=== PATIENT | female | born 1970 | race Caucasian/White ===

== ENCOUNTER 2019-06-10 11:39 | Outpatient (RCR) | payer OTHER, SELFPAY | END 2019-09-08 23:59 | disposition home or self-care (01) | LOC: ANHLAB 11:39 | PROVIDERS: Internal Medicine Gastroenterology; PCP Internal Medicine; Visit Provider Family Medicine | DX: R19.7 Diarrhea, unspecified (principal); R10.84 Generalized abdominal pain | CPT/HCPCS: 36415; 82274; 83993; 87045; 87046; 87177; 87209; 87324; 87427; 89055 ==

== ENCOUNTER 2019-08-23 10:00 | Outpatient (RCR) | payer OTHER, SELFPAY ==
--- NOTE | 2019-06-06 09:03 | PTOPEVAL ---
PHYSICAL THERAPY EVALUATION AND PLAN OF CARE Thank you for referring this patient to [facility]. Kerry is scheduled to be seen in OP PT for 2x/week for 4-6 weeks. Please review, sign, date and return this plan of care ALEJANDRA. I agree with and certify that the following plan of care is medically necessary. Referring Physician Date Therapy Assessment Status Assessment Status Assessment Status Evaluation Outpatient Past Medical History Musculoskeletal History Hx Spinal Surgery Yes: C5,6,7 fusion Evaluation Information Problem Diagnosis cervical fusion C5,6,7 Onset 04/13/19 Subjective Information 2months s/p cervical fusion. Query Text:As Reported By Patient/ Prior to surgery she Family experienced constant pain in the neck, pain with lifting, numbness and tingling in fingers and arms, and pain that would go up and down the back. Today she experiences occasional pain in the neck, especially after waking from sleep - states she is a restless sleeper. States that her arms will fall asleep if she lies on her side, but not if she lies on her back . Assessment Pain Scale Used Numeric (1 - 10) Self Report Pain Assessment Spine, Cervical Reported Pain Level 2 Pain Description Aching Pain Frequency Acute,Intermittent Current Pain Intensity 2 Lowest Pain Intensity 0 Greatest Pain Intensity 7 Pain Aggravating Factors Bending,Lifting Other Pain Aggravating Factors sleep Cervical ROM Reason Not Measured Surgery Precautions Upper Extremity Range of Motion Reason Not Measured WFL/Left,WFL/Right Gross Upper Extremity Range of Motion flexion and internal rotation: Comments right greater than left Upper Extremity Muscle Strength Testing Gross Upper Extremity Strength Comments 10lb lifting restriction grossly 3+/5 throughout Muscle Length Testing Latissmus Dorsi Muscle Length (R) WFL,(L) Mild Tightness Upper Trapezius Muscle Length (R) Moderate Tightness,(L) Severe Tightness Levaetor Scapulae Muscle Length (R) Moderate Tightness,(L) Moderate Tightness Pectoralis Major Muscle Length (R) Moderate Tightness,(L) Moderate Tightness Pectoralis Minor Muscle Length (R) Moderate Tightness,(L) Severe Tightness Sitting Position Posture Evaluation
--- NOTE | 2019-06-13 12:44 | PCPTNOTE ---
Patient called & cancelled scheduled appointment this date no reason given
--- NOTE | 2019-06-29 07:57 | PCPTNOTE ---
Patient called & cancelled scheduled appointment this date due to stomach flu
--- NOTE | 2019-07-04 08:26 | PCPTNOTE ---
Patient did not show up for scheduled appointment this date.
--- NOTE | 2019-07-12 11:34 | PTOPEVAL ---
PHYSICAL THERAPY PLAN OF CARE UPDATE AND PROGRESS REPORT Thank you for referring this patient to [facility]. Kerry will continue PT 2x/week for 3weeks. Please review, sign, date and return this plan of care ALEJANDRA. I agree with and certify that the following plan of care is medically necessary. Referring Physician Date Therapy Assessment Status Assessment Status Assessment Status Evaluation Outpatient Past Medical History Musculoskeletal History Hx Spinal Surgery Yes: C5,6,7 fusion Diagnosis cervical fusion C5,6,7 Onset 04/13/19 Subjective Information 3months s/p cervical fusion. Query Text:As Reported By Patient/ She is experiencing less Family numbness and tingling and if she uses a pillow to sleep there is even less numbness and tingling in her hands/arms. Self Report Pain Assessment Spine, Cervical Reported Pain Level 2 Pain Description Aching,Soreness,Tingling Pain Frequency Acute,Intermittent Scapular/ Shoulder Range of Motion Bilateral Shoulder Flexion - Active 130 Shoulder Medial Rotation - Active L1 Query Text:Reach Behind the Back Shoulder Lateral Rotation - Active occiput Query Text:Reach Behind the Head Scapular/Shoulder Range of Motion Muscle Length Restriction,Soft Limitations Tissue Restriction Scapular/Shoulder Strength Left Shoulder Flexion Strength 4- Good - Shoulder Extension Strength 4 Good Shoulder Abduction Strength 4- Good - Shoulder Medial Rotation Strength 4 Good Shoulder Lateral Rotation Strength 4 Good Right Shoulder Flexion Strength 3+ Fair + Shoulder Extension Strength 4 Good Shoulder Abduction Strength 3+ Fair + Shoulder Medial Rotation Strength 3 Fair Shoulder Lateral Rotation Strength 3- Fair - Muscle Length Testing - NO SIGNIFICANT CHANGES IN MUSCLE LENGTH Latissmus Dorsi Muscle Length (R) WFL,(L) Mild Tightness Upper Trapezius Muscle Length (R) Moderate Tightness,(L) Severe Tightness Levaetor Scapulae Muscle Length (R) Moderate Tightness,(L) Moderate Tightness Pectoralis Major Muscle Length (R) Moderate Tightness,(L) Moderate Tightness Pectoralis Minor Muscle Length (R) Moderate Tightness,(L) Severe Tightness Posture --NO SIGNIFICANT CHANGES IN POSTURE Thoracic Spine Posture Increased Kyphosis Thorax Posture Neutral Lumbar Spine Posture Flattened Shoulder Posture (L) Rounded,(R) Rounded,(L) Forward,(R) Forward Scapula Posture (L) Protracted,(R) Protracted, (L) Depressed Shoulder Special Te
--- NOTE | 2019-07-26 08:48 | PCPTNOTE ---
Patient called & cancelled scheduled appointment this date no reason given.
--- NOTE | 2019-08-02 09:08 | PCPTNOTE ---
Patient called & cancelled scheduled appointment this date due to having the flu.
--- NOTE | 2019-08-23 10:52 | PTOPEVAL ---
PHYSICAL THERAPY DISCHARGE REPORT Thank you for referring this patient to [facility]. I recommend Kerry discharge from PT at this time with independent HEP. Please review, sign, date and return this plan of care ALEJANDRA. I agree with and certify that the following plan of care is medically necessary. Referring Physician Date Re-evaluation Musculoskeletal History Hx Spinal Surgery Yes: C5,6,7 fusion Diagnosis cervical fusion C5,6,7 Onset 04/13/19 Subjective Information 4.5 months s/p cervical fusion Query Text:As Reported By Patient/ . Numbness and tingling are Family about the same. She did just return from vacation and did not do her exercises consistently, but now that she is back she is more consistent. Pain Assessment Timing of Pain Assessment Timing of Pain Assessment Pre-Treatment Self Report Self Report Pain Level 0 Pain Score Pain Score 0: Self Report Additional Pain Score Comments felt like dry needling helped decrease tension until this morning; except would prefer to not needle behind the head Cervical and Lumbar ROM Cervical ROM Reason Not Measured Surgery Precautions Cervical ROM Comments reports she is testing rotation without pain Upper Extremity Range of Motion General Upper Extremity Range of Motion Reason Not Measured WFL/Left,WFL/Right Gross Upper Extremity Range of Motion symmetrical with continued Comments mild decrease in ROM; reports this does not limit her function Scapular/ Shoulder Range of Motion Bilateral Shoulder Flexion - Active 145 Shoulder Medial Rotation - Active L1 Query Text:Reach Behind the Back Shoulder Lateral Rotation - Active T2 Query Text:Reach Behind the Head Scapular/Shoulder Range of Motion Muscle Length Restriction,Soft Limitations Tissue Restriction General Upper Extremity Strength Gross Upper Extremity Strength Comments 25lb lifting restriction Scapular/Shoulder Left Shoulder Flexion Strength 4 Good Shoulder Extension Strength 4 Good Shoulder Abduction Strength 4 Good Shoulder Medial Rotation Strength 4+ Good + Shoulder Lateral Rotation Strength 4+ Good + Right Shoulder Flexion Strength 4+ Good + Shoulder Extension Strength 4+ Good + Shoulder Abduction Strength 4 Good Shoulder Medial Rotation Strength 4+ Good + Shoulder Lateral Rotation Strength 4+ Good + Muscle Length Testing Latissmus Dorsi Muscle Length (R) WFL,(L) WFL Upper Trapezius Muscle
== END 2019-08-23 14:17 | disposition home or self-care (01) ==
LOC: ANHPT 10:00
DX: Z98.1 Arthrodesis status (principal)
CPT/HCPCS: 97110; 97140; 97161

== ENCOUNTER 2020-02-01 18:52 | Emergency (ER) | payer OTHER, SELFPAY ==
[2020-02-01 18:54] VITALS: BP 151/74; PULSE 65; RESP 18; TEMP 36.3; O2SAT 100
--- NOTE | 2020-02-01 20:00 | ED.GENADULT ---
HPI - General Adult General Chief complaint: Unspecified Stated complaint: knot under my chin Time Seen by Provider: 02/01/20 19:04 History of Present Illness HPI narrative: Patient is a 49-year-old female who presents the ER with redness and pain to the anterior aspect of her neck. Patient reports she is outside few days both cleaning when she was potentially bitten by gnat. For last couple days it is become more red and tender. Reports referred pain to the right side of her jaw. No difficulty breathing or swallowing. No drainage. There is a small chao to the central area. Was seen by her PCP who referred her to the ER. Related Data Home Medications Medication Instructions Recorded Confirmed albuterol sulfate 90 mcg/actuation 1 inhalation INHALATION Q4H 11/21/19 aerosol inhaler gabapentin 300 mg capsule 600 mg PO HS cap 11/21/19 amitriptyline 50 mg PO HS 02/01/20 atorvastatin 20 mg PO DAILY 02/01/20 Allergies Allergy/AdvReac Type Severity Reaction Status Date / Time No Known Allergies Allergy Verified 02/01/20 19:12 Review of Systems Constitutional: Constitutional: Denies chills and Denies fever(s) ENT: Denies dysphagia and Denies sore throat Respiratory: Respiratory: Denies cough and Denies dyspnea Integumentary/Breasts: Skin/Breast: Reports erythema Comments: Skin pain anterior neck. PMFSH Social History Social History Smoking status: Never smoker Alcohol intake: never Gender identity (if verbalized by the patient): Female Exam Narrative: Exam Narrative: GENERAL: Well-appearing, well-nourished, and in no acute distress. HEAD: Normocephalic, atraumatic. NECK: Supple. Redness anterior neck at essentially the crease of the jaw and anterior neck. There is a small white pustule. About 1 cm surrounding cellulitis and induration. Full range of motion. CHEST: Clear to auscultation. No respiratory distress. HEART: Regular rate and rhythm. Normal peripheral pulses. NEURO: Alert and oriented x3. Course Course Emergency Course: Bedside ultrasound shows no discernible pocket of pus. The white pustule that was initially there disappeared after application of room alcohol wipe and ultrasound jelly. Patient be discharged with antibiotics and pain medication. Vital Signs Vital signs: Vital Signs Temperature 97.3 F L 02/01/20 18:54 Pulse Rate 65 02/01/20 18:54 Respiratory Rate 18 02/01/20 18:54 Blood Pressure 151/74 H 02/01/20 18:54 Pulse Oximetry 100 02/01/20 18:54 Temperature 97.3 F L 02/01/20 18:54 Pulse Rate 65 02/01/20 18:54 Respiratory Rate 18 02/01/20 18:54 Blood Pressure 151/74 H 02/01/20 18:54 Pulse Oximetry 100 02/01/20 18:54 Medical Decision Making Vital Signs Vital Signs: Vital Signs Temperature 97.3 F L 02/01/20 18:54 Pulse Rate 65 02/01/20 18:54 Respiratory Rate 18 02/01/20 18:54 Blood Pressure 151/74 H 02/01/20 18:54 Pulse Oximetry 100 02/01/20 18:54 Temperature 97.3 F L 02/01/20 18:54 Pulse Rate 65 02/01/20 18:54 Respiratory Rate 18 02/01/20 18:54 Blood Pressure 151/74 H 02/01/20 18:54 Pulse Oximetry 100 02/01/20 18:54 Discharge Plan Discharge Clinical Impression: Cellulitis Patient Disposition: Home, Self-Care Condition: Stable Instructions: Antibiotic Form, Cellulitis (ED) Additional Instructions: Return to the ER if he cannot breathe, you cannot swallow, you have worsening redness or pain, or you develop fever over 100.4 ?F. Prescriptions: New sulfamethoxazole-trimethoprim [Bactrim DS] 800-160 mg tablet 1 tablet PO Q12H Qty: 20 RF: 0 hydrocodone-acetaminophen 5-325 mg tablet 1 tablet PO Q6H PRN (Reason: pain) Qty: 12 RF: 0 No Action gabapentin 300 mg capsule 600 mg PO HS RF: 0 albuterol sulfate 90 mcg/actuation HFA aerosol inhaler 1 inhalation INHALATION Q4H RF: 0 atorvastatin 20 mg tablet
[2020-02-01 20:20] VITALS: BP 146/77; PULSE 63; RESP 20; O2SAT 97
== END 2020-02-01 20:20 | disposition home or self-care (01) ==
PROVIDERS: Emergency Provider Emergency Medicine; PCP Internal Medicine
DX: L03.221 Cellulitis of neck (principal)
CPT/HCPCS: 99283; A9270

== ENCOUNTER 2020-05-09 13:28 | Outpatient (CLI) | payer OTHER, SELFPAY ==
--- NOTE | ~2020-05-09 | MR_ITS ---
EXAMINATION: MR lumbar spine wo con DATE: 05/09/2020 14:47 INDICATION: Lumbar radiculopathy. TECHNIQUE: Magnetic resonance imaging (MRI) of the lumbar spine was performed without intravenous con trast. Sequences included sagittal T2-weighted FSE, sagittal T2-weighted FS FSE, sagittal T1-weighted FSE, and axial T2-weighted FSE. COMPARISON: None FINDINGS: Bone alignment is normal. There is mild chronic anterior wedging of T11 and T12 vertebral b odies. There is moderately decreased disc height at T11-T12 and mildly decreased disc height at T12-L 1. The distal spinal cord signal intensity is normal. The conus medullaris is at L2. The following di sc levels are specifically discussed: L1-L2: There is a central protrusion. There is no facet joint osteoarthritis. There is no neural fora alex stenosis. There is no central canal stenosis. L2-L3: The disc does not extend beyond the endplate margin. There is mild bilateral facet joint osteo arthritis. There is no neural foraminal stenosis. There is no central canal stenosis. L3-L4: The disc does not extend beyond the endplate margin. There is moderate bilateral facet joint o steoarthritis. There is no neural foraminal stenosis. There is no central canal stenosis. L4-L5: The disc does not extend beyond the endplate margin. There is severe bilateral facet joint ost eoarthritis. There is mild bilateral neural foraminal stenosis. There is no central canal stenosis. L5-S1: The disc does not extend beyond the endplate margin. There is severe right and mild left facet joint osteoarthritis. There is mild bilateral neural foraminal stenosis. There is no central canal s tenosis. IMPRESSION: 1. Mild lumbar spondylosis. Reviewed, dictated and finalized at location A. P MIXER HELPER IMPRESSION: 1. Mild lumbar spondylosis.
== END 2020-05-09 13:29 | disposition home or self-care (01) ==
PROVIDERS: PCP Internal Medicine; Visit Provider Nurse Practitioner
DX: M47.27 Other spondylosis with radiculopathy, lumbosacral region (principal); M48.07 Spinal stenosis, lumbosacral region
CPT/HCPCS: 72148

== ENCOUNTER 2020-10-18 20:35 | Emergency (ER) | payer OTHER, SELFPAY ==
--- NOTE | ~2020-10-18 | XR_ITS ---
EXAMINATION: XR hand LT min 3V EXAM DATE: 10/18/2020 22:05 INDICATION: Laceration Between 3rd And 4th Digit From Metal Object . TECHNIQUE: Left hand frontal, lateral and oblique projections obtained and reviewed. There is no deven or study for comparison. FINDINGS: Left metacarpal bones are unremarkable. There are no acute fractures or dislocations ident ified. There is no subcutaneous gas. The soft tissue is unremarkable. There are no radiopaque for eign bodies. IMPRESSION: 1. Unremarkable left hand exam. Reviewed, dictated and finalized at location A.
[2020-10-18 20:38] VITALS: BP 167/79; PULSE 99; RESP 18; TEMP 36.2; O2SAT 99
[2020-10-18] MEDS: TETANUS,DIPHTHERIA,AC PERTUSSIS ADULT (0.5 ML) BOOSTRIX IM (21:39)
--- NOTE | 2020-10-18 21:52 | ED.WOUNDLAC ---
HPI - Wound/Laceration General Chief Complaint: Wound/Laceration Stated Complaint: laceration to hand Time Seen by Provider: 10/18/20 21:26 Source: patient Mode of arrival: ambulatory Limitations: no limitations History of Present Illness HPI narrative: This is a 50-year-old female that presents to the emergency department for laceration sustained just prior to arrival. Reports she was taking down a tent and sustained a laceration on a piece of metal. Reports laceration between the left third and fourth fingers. Reports bleeding and pain to the area. Unsure of her last tetanus vaccine. Denies decreased range of motion or numbness. Related Data Home Medications Medication Instructions Recorded Confirmed albuterol sulfate 90 mcg/actuation 1 inhalation INHALATION Q4H 11/21/19 aerosol inhaler gabapentin 300 mg capsule 600 mg PO HS cap 11/21/19 amitriptyline 50 mg PO HS 02/01/20 atorvastatin 20 mg PO DAILY 02/01/20 Allergies Allergy/AdvReac Type Severity Reaction Status Date / Time No Known Allergies Allergy Verified 02/01/20 19:12 Review of Systems Review of Systems: Narrative: CONSTITUTIONAL: Denies fever SKIN: Reports laceration MUSCULOSKELETAL: Denies joint pain, or myalgia. NEUROLOGIC: Denies numbness All systems reviewed & are unremarkable except as noted in HPI and below PMFSH Past Medical History Medical History (Updated 10/18/20 @ 23:14 by Michelle Collins PA-C) Acid reflux History of hyperlipidemia Missed Surgical History Surgical History History of cholecystectomy History of endometrial ablation Previous section x 3 Family History Family History Father Family history of premature coronary heart disease Hypertension Family history of elevated blood lipids Family history of diabetes mellitus in first degree relative Diabetes mellitus Family history of hypercholesterolemia Sibling Family history of malignant neoplasm of thyroid Social History Social History Smoking status: Never smoker Alcohol intake: never Gender identity (if verbalized by the patient): Female Exam Narrative: Exam Narrative: GENERAL: Well-appearing, well-nourished, and in no acute distress. HEAD: Normocephalic, atraumatic. EYES: EOMI. EXTREMITIES: Normal range of motion. No edema or obvious deformity. 2 cm linear laceration into subcutaneous tissue between the left third and fourth fingers SKIN: Warm, dry, no rash. NEURO: No focal deficits. Alert and oriented x3. PSYCH: Normal mood and affect Course Vital Signs Vital signs: Vital Signs Temperature 97.1 F L 10/18/20 20:38 Pulse Rate 99 10/18/20 20:38 Respiratory Rate 18 10/18/20 20:38 Blood Pressure 167/79 H 10/18/20 20:38 Pulse Oximetry 99 10/18/20 20:38 Temperature 97.1 F L 10/18/20 20:38 Pulse Rate 99 10/18/20 20:38 Respiratory Rate 18 10/18/20 20:38 Blood Pressure 167/79 H 10/18/20 20:38 Pulse Oximetry 99 10/18/20 20:38 Procedures Laceration Laceration 1: Date: 10/18/20 Time: 23:14 Site: hand Side (If applicable): left Size (cm): 2 Description: linear Depth: simple, single layer Local Anesthetic: lidocaine 1% and with epi Amount of anesthesia used (mL): 2 Pre-repair: irrigated ====== Skin Level ====== Skin layer closed with: nylon Size (cm): 4-0 Number of sutures: 3 Technique: simple, interrupted ====== Subcutaneous Layer ====== ====== Muscle Layer ====== ====== Tendon Layer ====== MDM - Wound/Laceration MDM Narrative Medical decision making narrative: Patient presents the emergency department for left hand laceration sustained just prior to arrival. Left hand x-rays without acute osseous abnormali
[2020-10-18] MEDS: HYDROcodone/acetaminophen (*CRX) 5-325 MG TABLET 1 TAB PO (22:42)
== END 2020-10-18 23:33 | disposition home or self-care (01) ==
PROVIDERS: Emergency Provider Emergency Medicine; PCP Internal Medicine
DX: S61.412A Laceration without foreign body of left hand, initial encounter (principal); E78.5 Hyperlipidemia, unspecified; K21.9 Gastro-esophageal reflux disease without esophagitis; Z23 Encounter for immunization; W26.8XXA Contact with other sharp object(s), not elsewhere classified, initial encounter
CPT/HCPCS: 12001; 73130; 90471; 90715; 99284; A9270

== ENCOUNTER 2021-02-27 09:21 | Outpatient (CLI) | payer OTHER, SELFPAY ==
[2021-02-27 10:01] LABS: CRP < 0.5 mg/dL (<1.0)
[2021-02-27 10:11] LABS: Troponin I < 0.012 ng/mL (0.000-0.034)
[2021-02-27 10:27] LABS: D Dimer 0.28 ug/mL (<0.48)
[2021-02-27 11:28] LABS: Erythrocyte Sedimentation Rate 14 mm/hr (0-20)
== END 2021-02-27 09:22 | disposition home or self-care (01) ==
PROVIDERS: PCP Internal Medicine; Visit Provider Nurse Practitioner Family
DX: R07.9 Chest pain, unspecified (principal)
CPT/HCPCS: 36415; 84484; 85380; 85652; 86140

== ENCOUNTER 2021-05-27 08:14 | Outpatient (CLI) | payer OTHER, SELFPAY ==
--- NOTE | ~2021-05-27 | MR_ITS ---
EXAMINATION: MR brain/brain stem wo con DATE: 05/27/2021 09:41 INDICATION: New daily persistent headache. TECHNIQUE: Magnetic resonance imaging (MRI) of the brain and brainstem was performed without intraven ous contrast. Sequences included sagittal and axial T1-weighted FSE, axial diffusion-weighted FS EPI, axial T2*-weighted GRE, axial T2-weighted FLAIR Propeller, and axial T2-weighted Propeller. Apparent diffusion coefficient (ADC) maps were created. COMPARISON: None. FINDINGS: There is no intracranial hemorrhage, acute infarction, or abnormal intracranial mass lesion . The ventricles are normal in size. There are changes of suboccipital craniotomy. There is a mucous retention cyst in left maxillary sinus. The mastoid air cells are normal. The orbits are normal. IMPRESSION: 1. Normal brain. Reviewed, dictated and finalized at location A. RESSION CREW LEADER IMPRESSION: 1. Normal brain.
--- NOTE | ~2021-05-27 | MR_ITS ---
EXAMINATION: MR cervical spine wo con DATE: 05/27/2021 09:51 INDICATION: Neck pain. TECHNIQUE: Magnetic resonance imaging (MRI) of the cervical spine was performed without intravenous c ontrast. Sequences included sagittal T2-weighted FSE, sagittal STIR FSE, sagittal T1-weighted FSE, ax ial MERGE, and axial T2-weighted FSE. COMPARISON: None FINDINGS: There is 3 degrees levocurvature of cervicothoracic spine. There are changes of anterior fu nirmala procedure from C5 to C7 with healed interbody bone graft and anterior plate and screws. Vertebra l body heights are normal. There is mildly decreased disc height at C4-C5. The spinal cord signal int ensity is normal. There are changes of suboccipital craniotomy. The following disc levels are specifi jhonatan discussed: C2-C3: The disc does not extend beyond the endplate margin. There is no uncovertebral joint osteoarth ritis. There is mild right and severe left facet joint osteoarthritis. There is mild left neural fora alex stenosis. There is no central canal stenosis. C3-C4: The disc does not extend beyond the endplate margin. There is no uncovertebral joint osteoarth ritis. There is moderate bilateral facet joint osteoarthritis. There is no neural foraminal stenosis. There is no central canal stenosis. C4-C5: There is a central extrusion. There is no uncovertebral joint osteoarthritis. There is severe bilateral facet joint osteoarthritis. There is mild left neural foraminal stenosis. There is mild dane tral canal stenosis. C5-C6: There is no uncovertebral joint hypertrophy. There is no facet joint osteoarthritis. There is no neural foraminal stenosis. There is no central canal stenosis. C6-C7: There is no uncovertebral joint hypertrophy. There is moderate right and mild left facet joint osteoarthritis. There is mild right neural foraminal stenosis. There is no central canal stenosis. C7-T1: There is a central protrusion. There is no uncovertebral joint osteoarthritis. There is severe bilateral facet joint osteoarthritis. There is mild bilateral neural foraminal stenosis. There is mi ld central canal stenosis. IMPRESSION: 1. Mild cervical spondylosis. 2. Anterior fusion procedure from C5 to C7. Reviewed, dictated and finalized at location A. P TRUCK DRIVER
== END 2021-05-27 08:15 ==
PROVIDERS: PCP Internal Medicine; Visit Provider Nurse Practitioner Family
DX: G44.52 New daily persistent headache (NDPH) (principal); M47.813 Spondylosis without myelopathy or radiculopathy, cervicothoracic region; M48.03 Spinal stenosis, cervicothoracic region; Z98.1 Arthrodesis status
CPT/HCPCS: 70551; 72141

== ENCOUNTER 2021-07-02 10:22 | Outpatient (CLI) | payer OTHER, SELFPAY ==
--- NOTE | ~2021-07-02 | US_ITS ---
EXAMINATION: US abdomen complete EXAM DATE: 07/02/2021 10:46 INDICATION: Thrombocytosis . TECHNIQUE: Multiple grayscale and Doppler images of the complete abdomen were obtained (by a technolo gist who performed the scan) and subsequently reviewed. There is no prior study for comparison. FINDINGS: The abdominal aorta is normal in caliber. Visualized portion IVC is patent. The pancreatic head a nd body are normal in appearance. The pancreatic tail is not visualized. The liver has normal echogenicity and contour. There are no focal liver lesions identified. There is no evidence of intrahepatic biliary duct dilation. Portal venous flow was seen in the hepatopedal , normal direction and has normal Doppler waveform. Common bile duct measures 4 mm, which is normal. The gallbladder fossa is unremarkable. Right kidney: There is normal contour and increased medullary echogenicity. It measures 9.7 x 4.3 x 4.7 centimeters. There are no focal renal lesions identified. There is no hydronephrosis. Left kidney: There is normal contour and increased medullary echogenicity. It measures 10.0 x 5.2 x 4.1 centimeters. There are no focal renal lesions identified. There is no hydronephrosis. The spleen measures 10 centimeters and is morphologically normal. IMPRESSION: 1. Diffusely increased renal medullas, suspicious for medullary nephrocalcinosis. 2. No hydronephrosis. 3. Normal spleen size. Reviewed, dictated and finalized at location A. URCE ENGINEER IMPRESSION: 1. Diffusely increased renal medullas, suspicious for medullary nephrocalcinos is. 2. No hydronephrosis. 3. Normal spleen size.
== END 2021-07-02 10:23 ==
LOC: MICIMG 10:23
PROVIDERS: PCP Internal Medicine; Visit Provider Nurse Practitioner
DX: D75.839 Thrombocytosis, unspecified (principal)
CPT/HCPCS: 76700

== ENCOUNTER 2021-10-03 09:52 | Outpatient (CLI) | payer OTHER, SELFPAY ==
--- NOTE | ~2021-10-03 | CT_ITS ---
EXAMINATION: CT abdomen pelvis wo con DATE: 10/03/2021 10:15 INDICATION: Abdominal pain. History of kidney stones years ago. TECHNIQUE: Computed tomography (CT) of the abdomen and pelvis was performed without intravenous contr ast. Automated exposure control and iterative reconstruction technique were employed. Exam dose: 757 .24 mGy-cm total exam DLP. COMPARISON: 07/02/2021 complete abdominal ultrasound examination FINDINGS: The lung bases are clear. Normal heart size. No pericardial or pleural effusion. Status post cholecystectomy. No hepatic, splenic, pancreatic, and adrenal or renal space-occupying ma ss lesion. No urinary tract calculus or hydroureteronephrosis. The urinary bladder is unremarkable. Normal appendix; no evidence of appendicitis. Minimal colonic diverticulosis; no CT evidence of diver ticulitis. No bowel obstruction, bowel wall thickening, pneumatosis or intraperitoneal free air. No suspicious osteolytic or osteoblastic lesions. Diffuse idiopathic skeletal hyperostosis of the tho racic spine. IMPRESSION: Status post cholecystectomy No urinary tract calculi or hydroureteronephrosis Normal appendix Reviewed, dictated and finalized at Location A. Reviewed, dictated and finalized at location A.
== END 2021-10-03 09:53 ==
PROVIDERS: PCP Internal Medicine; Visit Provider Nurse Practitioner
DX: R10.9 Unspecified abdominal pain (principal); Z90.49 Acquired absence of other specified parts of digestive tract; M48.14 Ankylosing hyperostosis [Forestier], thoracic region; K57.30 Diverticulosis of large intestine without perforation or abscess without bleeding
CPT/HCPCS: 74176

== ENCOUNTER 2022-01-30 12:02 | Outpatient (CLI) | payer OTHER, SELFPAY ==
--- NOTE | ~2022-01-30 | MR_ITS ---
EXAMINATION: MR brain/brain stem wo/w con DATE: 01/30/2022 12:54 INDICATION: Disorientation, unspecified. TECHNIQUE: Magnetic resonance imaging (MRI) of the brain and brainstem was performed without and with 15 mL MultiHance intravenous contrast. COMPARISON: Brain MRI 05/27/2021 FINDINGS: There are changes of suboccipital craniotomy. There is a punctate focus of increased T2-benjamín ghted signal intensity in the left frontoparietal deep white matter which is normal as an isolated fi nding. There is no intracranial hemorrhage, acute infarction, or abnormal intracranial mass lesion. T he ventricles are normal in size. There is a mucous retention cyst in left maxillary sinus. The orbit s are normal. The mastoid air cells are normal. IMPRESSION: 1. Normal brain. Reviewed, dictated and finalized at location A. IMPRESSION: 1. Normal brain.
== END 2022-01-30 12:03 ==
PROVIDERS: PCP Internal Medicine; Visit Provider Internal Medicine
DX: R41.0 Disorientation, unspecified (principal)
CPT/HCPCS: 70553; A9577

== ENCOUNTER 2022-03-11 10:53 | Outpatient (CLI) | payer OTHER, SELFPAY ==
--- NOTE | ~2022-03-11 | MMUS_ITS ---
EXAMINATION: MM diagnostic nicolas BI w shabbir, US breast LT limited HISTORY: Skin sore of the upper outer quadrant of the left breast and adjacent palpable lump in the u pper outer quadrant of the left breast. TECHNIQUE: Craniocaudal, mediolateral, and mediolateral oblique 3-D tomosynthesis images of the breas ts were performed and synthetic 2-D images were generated. CAD analysis was submitted and interpreted . High resolution limited left breast ultrasound was performed. COMPARISON: No prior mammogram is currently available for comparison. BREAST PARENCHYMAL COMPOSITION: There are scattered areas of fibroglandular density. FINDINGS: MAMMOGRAPHIC FINDINGS: No suspicious mass, calcification, or architectural distortion are identified in either breast to sug gest malignancy. No mammographic correlate is identified for the reported palpable abnormality or sor e of the skin surface at the upper outer quadrant of the left breast. ULTRASOUND: There is no evidence of focal abnormal solid or cystic mass in the vicinity of the reported palpable abnormality or sore the skin surface of the left breast. IMPRESSION: 1. No specific mammographic or sonographic correlate is identified for the reported palpable abnormal ity of concern or sore of the skin surface in the left breast. Further evaluation at this time should be based on clinical assessment. Continued follow-up physical examination is recommended. 2. Recommend routine screening mammography in one year. BI-RADS Category 1: Negative Reviewed, dictated and finalized at location A. IMPRESSION: 1. No specific mammographic or sonographic correlate is identified for the repo rted palpable abnormality of concern or sore of the skin surface in the left br east. Further evaluation at this time should be based on clinical assessment. C ontinued follow-up physical examination is recommended. 2. Recommend routine screening mammography in one year. BI-RADS Category 1: Negative
== END 2022-03-11 10:54 ==
PROVIDERS: PCP Internal Medicine; Visit Provider Nurse Practitioner
DX: N64.89 Other specified disorders of breast (principal)
CPT/HCPCS: 76642; 77062; 77066; G0279

== ENCOUNTER 2022-07-16 12:22 | Inpatient (IN) | payer OTHER, SELFPAY ==
[2022-07-16] VITALS (13 sets, daily range): BP systolic 109–153; BP diastolic 52–79; PULSE 63–123; RESP 14–23; TEMP 36.6–37; O2SAT 97–100; BMI 33.3; BMI 32.9
--- NOTE | 2022-07-16 | ECHO_ITS ---
Patient Info Name: Kerry Julian Age: 52 years : 1970 Gender: Female Ht: 63 in Wt: 170 lbs BSA: 1.88 m2 HR: 77 bpm BP: 153 / 57 mmHg Heart Rhythm: Sinus Rhythm Technical Quality: Fair Exam Date: 07/16/2022 4:17 PM Exam Location: [facility] Patient Status: Outpatient Admit Date: 07/16/2022 Staff Ordering Physician: Carroll Rabago DO Patient Resource Specialist: Bhumi Fisher RDCS Attending Provider: Sugar Conner DO Referring Physician: Hima VALLES; Exam Type: CA echo doppler color flow Study Info Indications R07.9 - Chest pain, unspecified Complete two-dimensional, color flow and Doppler transthoracic echocardiogram is performed. Summary 1. Complete two-dimensional, color flow and Doppler transthoracic echocardiogram is performed. 2. Left ventricular chamber dimension is normal. 3. Left ventricular systolic function is normal, estimated at 60-65%. 4. The left ventricular diastolic function is grade I diastolic dysfunction. 5. E/e' 10 is mildly elevated. 6. No pulmonary hypertension, estimated pulmonary arterial systolic pressure is 21 mmHg. Left Ventricle E/e' 10 is mildly elevated. Left ventricular chamber dimension is normal. Left ventricular systolic function is normal, estimated at 60-65%. The left ventricular diastolic function is grade I diastolic dysfunction. Right Ventricle Right ventricular systolic function is normal and with normal TAPSE 2.0 cm. Right ventricular chamber dimension is normal. Left Atria Left atrial chamber dimension is normal. Right Atria Right atrial chamber dimension is normal. Atrial Septum Interatrial septum not well visualized by 2D and color flow imaging. Aortic Valve The aortic valve is trileaflet. There is no aortic valve sclerosis. There is no aortic valve stenosis. There is no aortic valve regurgitation. Pulmonic Valve There is no pulmonic regurgitation. Mitral Valve There is no mitral valve stenosis. There is no mitral valve regurgitation. Tricuspid Valve There is no tricuspid valve regurgitation. No pulmonary hypertension, estimated pulmonary arterial systolic pressure is 21 mmHg. Pericardium/Pleural There is no pericardial effusion. Inferior Vena Cava Normal inferior vena cava with >50% collapse upon inspiration consistent with normal right atrial pressure, 5 mmHg. Aorta The aortic root size at the sinus of Valsalva is normal. Left Ventricular Outflow Tract Name Value Normal LVOT 2D LVOT Diameter 2.0 cm LVOT Doppler LVOT Peak Gradient 3 mmHg LVOT Mean Gradient 2 mmHg LVOT VTI 18 cm LVOT VTI/AV VTI Ratio 0.6 LVOT Stroke Volume 57 ml LVOT CO 4.2 l/min LVOT CI 2.3 l/min/m2 Pulmonic Valve Name Value Normal RVOT
--- NOTE | ~2022-07-16 | NM_ITS ---
EXAMINATION: NM luis armando stress w perfusion DATE: 07/17/2022 12:11 INDICATION: Chest pain. TECHNIQUE: Rest images were obtained following intravenous administration of 9.7 mCi Tc99m tetrofosmi n (Myoview). The patient was infused intravenously with Lexiscan (regadenoson). Then, 32.1 mCi Tc99m tetrofosmin (Myoview) was administered intravenously, and stress images were obtained. Data was recon structed into short axis and horizontal and vertical long axis SPECT images. Gated SPECT images were also obtained. COMPARISON: CT abdomen and pelvis 10/03/2021 FINDINGS: There is no definite reversible or fixed perfusion abnormality to suggest ischemia or infar ction. There is no segmental wall motion abnormality. Left ventricular ejection fraction measures 6 8%. IMPRESSION: 1. No definite ischemia or infarct. 2. Normal left ventricular ejection fraction measuring 68%. Reviewed, dictated and finalized at location A. ET CUTTER
--- NOTE | ~2022-07-16 | XR_ITS ---
EXAMINATION: XR chest 1V portable DATE: 07/16/2022 13:12 INDICATION: Chest pain. TECHNIQUE: A single frontal view of the chest was obtained. COMPARISON: Chest 2 views 03/02/2014 FINDINGS: The chest demonstrates clear lungs without pneumonia, pleural effusion, or pneumothorax. Th e heart size is normal. There are changes of anterior fusion procedure in cervical spine. IMPRESSION: 1. No acute cardiopulmonary disease. Reviewed, dictated and finalized at location A. 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
--- NOTE | ~2022-07-16 | XR_ITS ---
EXAMINATION: XR abdomen/kub 1V DATE: 07/17/2022 18:20 INDICATION: Vomiting and constipation TECHNIQUE: A supine view of the abdomen on 2 radiographs was obtained. COMPARISON: CT dated 09/25/2021 FINDINGS: Small to moderate amount of gas and stool scattered throughout the colon. Additional small amount of gas within a few nondilated loops of small bowel in the left abdomen. Phlebolith in the left hemipelv is. Lung bases are clear. Heart size is normal. Partial ankylosis at the bilateral sacroiliac joints. IMPRESSION: 1. Normal bowel gas pattern. Reviewed, dictated and finalized at location A. ER [employer]
--- NOTE | ~2022-07-16 | CT_ITS ---
Non-contrast Head CT History: Dizziness Technique: Axial non-contrast imaging of the brain was performed. Dose reduction technique was used on this scan by utilizing automated exposure control and iterative reconstruction technique. The dose -length product (DLP) was 605.33 mGy-cm. Findings: There is no evidence of intracranial hemorrhage, mass lesion, or acute infarct. Brain par enchyma appears normal. The ventricles and subarachnoid spaces are normal in size. Occipital craniec marine change noted. The visualized paranasal sinuses and mastoid air cells are clear. Impression: No acute abnormality seen. Occipital craniectomy. Correlate with surgical history. Reviewed, dictated and finalized at location . DLE CARVER Impression: No acute abnormality seen. Occipital craniectomy. Correlate with surgical history.
--- NOTE | 2022-07-16 12:31 | ECG_ITS ---
Measurements Intervals [place] Rate: 121 P: [place]: 0 QRS: -58 QRSD: 124 T: 100 QT: 310 QTc: 441 Interpretive Statements ATRIAL FIBRILLATION WITH RAPID VENTRICULAR RESPONSE MARKED LEFT AXIS DEVIATION [QRS AXIS < -30] LEFT BUNDLE BRANCH BLOCK [120+ ms QRS DURATION, 80+ ms Q/S IN V1/V2, 85+ ms R IN I/aVL/V5/V6] NO PREVIOUS ECG AVAILABLE FOR COMPARISON Electronically Signed On 07-16-2022 16:16:33 CS ASSOCIATE by Halina Callaway M.D.
[2022-07-16] MEDS: SODIUM CHLORIDE 0.9% IV 1,000 ML 999 ML IV CONT (12:59)
[2022-07-16 13:35] LABS: Basophils Absolute Auto 0.1 K/mm3 (0.0-0.1); Basophils Percent Auto 0.4 % (0.2-1.2); Eosinophils Absolute Auto 0.2 K/mm3 (0-0.3); Eosinophils Percent Auto 1.6 % (0-4.4); Hematocrit 39.3 % (37.0-47.0); Hemoglobin 13.3 g/dL (12.0-15.0); Immature Granulocyte Absolute 0.05 K/mm3 (0.00-0.031); Immature Granulocyte Percent A 0.3 % (0-0.5); Lymphocytes Absolute Auto 0.73 K/mm3 (0.9-3.2); Lymphocytes Percent Auto 4.9 % (18.3-44.2); Mean Corpuscular HGB Conc 33.8 g/dl (32-36); Mean Corpuscular Hemoglobin 29.3 pg (26-34); Mean Corpuscular Volume 86.6 fl (80-100); Mean Platelet Volume 8.1 fl (7.4-10.4); Monocytes Absolute Auto 0.9 K/mm3 (0.1-0.6); Monocytes Percent Auto 5.7 % (2.6-8.5); Neutrophils Percent Auto 87.1 % (45.5-73.1); Platelet Count Result 415 k/mm3 (150-375); Red Blood Count 4.54 M/mm3 (4.2-5.4); Red Cell Distribution Width 12.7 % (11.5-14.5); White Blood Count 14.9 K/mm3 (4.5-10.0)
[2022-07-16 13:46] LABS: Prothrombin Time 12.5 Seconds (11.1-14.7)
[2022-07-16 13:47] LABS: Partial Thromboplastin Time 27.1 SECONDS (22.3-36.8)
[2022-07-16 13:49] LABS: Alanine Aminotransferase 36 U/L (6-35); Alkaline Phosphatase 159 U/L (38-126); Anion Gap 6 mmol/L (8-16); Aspartate Amino Transferase 30 U/L (14-36); Bilirubin,Total 0.7 mg/dL (0.2-1.3); Blood Urea Nitrogen 13 mg/dL (7-17); Calcium 8.8 mg/dL (8.4-10.2); Carbon Dioxide 26 mmol/L (22-30); Chloride 105 mmol/L (98-107); Estimated CRCL calculation 78 ml/min; Estimated Glomerular Filt Rate > 60; Glucose 107 mg/dL (65-110); Lipase 45 U/L (23-300); Magnesium 1.6 mg/dL (1.6-2.3); Potassium 3.5 mmol/L (3.4-5.0); Sodium 137 mmol/L (137-145)
[2022-07-16 13:56] LABS: Troponin I < 0.012 ng/mL (0.000-0.034)
--- NOTE | 2022-07-16 13:59 | ECG_ITS ---
Measurements Intervals [place] Rate: 109 P: 211 [place]: 132 QRS: -54 QRSD: 124 T: 106 QT: 386 QTc: 522 Interpretive Statements SINUS TACHYCARDIA LEFT AXIS DEVIATION [QRS AXIS < -30] LEFT BUNDLE BRANCH BLOCK COMPARED TO ECG 07/16/2022 12:33:26 SINUS TACHYCARDIA NOW PRESENT Electronically Signed On 07-16-2022 16:18:54 MUSIC MINISTER by Halina Callaway M.D.
[2022-07-16 14:10] LABS: Influenza A QL RT-PCR Negative (Negative); Influenza B QL RT-PCR Negative (Negative); SARS-CoV-2 RNA PCR Negative
--- NOTE | 2022-07-16 15:13 | ED.CHESTPAIN ---
HPI - Chest Pain General Chief Complaint: Chest Pain Stated Complaint: chest pain Time Seen by Provider: 07/16/22 12:29 Source: RN notes reviewed History of Present Illness HPI narrative: Patient presents emergency department from home for chest pain. Patient states the chest pain began this morning the pain is located mostly to the chest and radiates in the left shoulder is described as a pressure in nature. States has been associated with a feeling like her heart is racing. States she feels like her heart will get fast and then slow states she has had problems with rapid heartbeat before and has worn a Holter monitor twice but has not found any definitive arrhythmias. States she has been having a headache for the past 3 days as well she denies any fevers or chills she denies any abdominal pain nausea or vomiting she does note that she has been feeling mildly short of Related Data Home Medications Medication Instructions Recorded Confirmed albuterol sulfate 90 mcg/actuation 1 inhalation inhalation Q4H 11/21/19 aerosol inhaler gabapentin 300 mg capsule 600 mg PO HS 11/21/19 amitriptyline 25 mg tablet 50 mg PO HS 02/01/20 atorvastatin 20 mg tablet 20 mg PO DAILY 02/01/20 Allergies Allergy/AdvReac Type Severity Reaction Status Date / Time aspirin Allergy Unknown BLEEDING Verified 03/21/22 10:09 NSAIDS (Non-Steroidal Allergy Unknown BLEEDING Verified 03/21/22 10:09 Anti-Inflamma Review of Systems Review of Systems: Gen.: Denies fevers or chills Eyes: Denies eye pain or visual change ENT: Denies congestion Respiratory: Denies shortness of breath or cough CV: See HPI GI: Denies abdominal pain nausea, emesis or diarrhea Musculoskeletal: Denies back pain or muscle pain Neuro: Reports headache Skin: Denies rash Except as documented, all other systems reviewed and negative [facility] Past Medical History Medical History Acid reflux History of hyperlipidemia Missed Surgical History Surgical History (System 03/21/22 @ 10:09 by Carola Owusu) History of cholecystectomy History of endometrial ablation Previous section x 3 Family History Family History (System 03/21/22 @ 10:09 by Carola Owusu) Father Family history of premature coronary heart disease Hypertension Family history of elevated blood lipids Family history of diabetes mellitus in first degree relative Diabetes mellitus Family history of hypercholesterolemia Sibling Family history of malignant neoplasm of thyroid Social History Social History Smoking status: Never smoker Alcohol intake: never Gender identity (if verbalized by the patient): Female Exam Narrative: APPEARANCE: No acute distress, nontoxic, resting in bed EYES: EOMI, PERRL HEENT: Normocephalic, atraumatic, OMM RESPIRATORY: No respiratory distress Clear to auscultation bilaterally with no rhonchi wheezing or rales. CARDIOVASCULAR: Regular rate and rhythm without murmurs rubs or gallops. ABDOMINAL: Soft, nontender, nondistended, no rebound or guarding MUSCULOSKELETAl: Moves all extremities. No clubbing, cyanosis or edema. NEURO: Awake and alert x 4. Following commands, speech normal, no focal deficits SKIN:: Warm, dry. No rashes lesions or abrasions PSYCHIATRIC: Normal affect/mood, Course Course Emergency Course: Reviewed patient's previous records including her previous Holter monitor records from March at that time she did have 1 episode of V. tach the last 8-day as well as SVT Called and discussed with Dr. Rabago cardiology presentation and work-up he agrees with consult at this time Called and discussed with SUSY Randle for Dr. Conner for hospitalist service agrees with admission Discussed with patient and family results of workup and diagnosis. Discussed need for admission. Patient and family understand and agree to curr
--- NOTE | 2022-07-16 15:22 | PM.CNCAR ---
Assessment and Plan Assessment and plan (1) PAT (paroxysmal atrial tachycardia): Code(s): I47.1 - Supraventricular tachycardia Status: Acute Assessment and Plan: EKG shows intermittent Atrial tachycardia. (2) PVT (paroxysmal ventricular tachycardia): Code(s): I47.29 - Other ventricular tachycardia Status: Acute Assessment and Plan: She had event monitor in Feb that showed nonsustained VT at 8 beats at 194 bpm. Start Metoprolol Tartate 25 mg BID. Obtain TSH, Mag. (3) LBBB (left bundle branch block): Code(s): I44.7 - Left bundle-branch block, unspecified Status: Acute (4) Chest pain: Code(s): R07.9 - Chest pain, unspecified Status: Acute Assessment and Plan: Trend troponin. If negative troponin, obtain lexiscan myoview stress test. Obtain echo. (5) Hypersomnia: Code(s): G47.10 - Hypersomnia, unspecified Status: Acute Assessment and Plan: Will need outpatient sleep study. (6) History of hyperlipidemia: Code(s): Z86.39 - Personal history of other endocrine, nutritional and metabolic disease Status: Acute Assessment and Plan: Obtain Lipid panel. History of Present Illness History of Present Illness Consult date/time: 07/16/22 15:22 Reason For Visit: chest pain Narrative: 52 yr old woman presented to ER with chest pain and palpitations. She has a history of dyslipidemia, craniotomy with steel plate. Reports she has been having palpitations for a few months but this morning it lasted much longer. She also had headache, back pain and chest discomfort. She can normally walk 1 mile without any problems. Admits to snoring, waking up and daytime sleepiness. Denies orthopnea, PND, edema, dizziness. Review of Systems Review of Systems: All systems reviewed & are unremarkable except as noted in HPI and below Constitutional: Constitutional: Reports as per HPI, Denies chills and Denies fever(s) Cardiovascular: Cardiovascular: Reports as per HPI, Reports chest pain and Reports irregular heart rhythm Respiratory: Respiratory: Reports as per HPI and Denies dyspnea on exertion Gastrointestinal: Gastrointestinal: Reports as per HPI and Denies abdominal pain Genitourinary: Genitourinary: Reports as per HPI and Denies dysuria Musculoskeletal: Musculoskeletal: Reports as per HPI and Reports back pain Neurologic: Reports as per HPI, Denies dizziness and Denies syncope [facility] Past Medical History Medical History (Updated 07/16/22 @ 15:33 by Carroll Rabago DO) Acid reflux History of hyperlipidemia Missed Surgical History Surgical History (System 03/21/22 @ 10:09 by Carola Owusu) History of cholecystectomy History of endometrial ablation Previous section x 3 Family History Family History (System 03/21/22 @ 10:09 by Carola Owusu) Father Family history of premature coronary heart disease Hypertension Family history of elevated blood lipids Family history of diabetes mellitus in first degree relative Diabetes mellitus Family history of hypercholesterolemia Sibling Family history of malignant neoplasm of thyroid Social History Social History (System 03/21/22 @ 10:09 by Carola Owusu) Smoking status: Never smoker Alcohol intake: never Gender identity (if verbalized by the patient): Female Meds Home Medications and Allergies Home Medications Medication Instructions Recorded Confirmed Type albuterol sulfate 90 mcg/actuation 1 inhalation inhalation Q4H 11/21/19 History aerosol inhaler gabapentin 300 mg capsule 600 mg PO HS 11/21/19 History amitriptyline 25 mg tablet 50 mg PO HS 02/01/20 History atorvastatin 20 mg tablet 20 mg PO DAILY 02/01/20 History hydrocodone 5 mg-acetaminophen 325 1 tablet PO Q6H PRN pain #12 tabs 02/01/20 Rx mg tablet sulfamethoxazole 800 1 tablet PO Q12H #20 tabs 02/01/20 Rx mg-trimethoprim 160 mg tablet (Bactri
[2022-07-16 16:22] LABS: Cholesterol 191 mg/dL (0-200); HDL Direct 54 mg/dL; Magnesium 1.6 mg/dL (1.6-2.3); Triglycerides 82 mg/dL (<150)
--- NOTE | 2022-07-16 16:30 | PM.IMHP ---
H&P: HPI History of Present Illness Date/Time: 07/16/22 16:30 Chief Complaint: Chest pain, palpitations. Narrative: This is a 52-year-old female with hyperlipidemia and GERD who presented to the emergency department from home for evaluation of chest pain and palpitations. Patient provides the following history. She has had intermittent episodes of palpitations since last fall and she wore an event monitor last February which showed an episode of nonsustained ventricular tachycardia for 8 beats at 194 beats per minute. She has continued to have symptoms but they are typically self-limiting. Her palpitations occur a lot at night and have wakened her from sleep. At time she feels a bit lightheaded or short of breath with the episodes but not always. She is able to walk up to a mile without palpitations, chest pain, or shortness of breath and she has not had syncope or near syncope. This morning she once again had sensations of racing heart and palpitations with some pressure-like discomfort in the chest radiating to the left shoulder and jaw associated with mild shortness of breath, lightheadedness, dizziness, nausea, and significant anxiety. She also reports that she had some chills today and she has just not been feeling well the past couple of days with posterior headache and sore throat. 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 She drinks 44 oz of soda most days. No significant alcohol use. No history of thyroid disease. Weight has remained stable. No history of sleep apnea though she does report daytime somnolence. EKG on arrival to the emergency department showed atrial tachycardia and she has had negative troponins thus far. She is being admitted in this setting for overnight monitoring and Cardiology consultation. Review of Systems Review of Systems: Twelve systems were reviewed. No fever. She reports sore throat as above. No sinus congestion. No focal weakness or paresthesias. She reports generalized weakness this morning with the palpitations and shortness of breath. No cough. No sick contacts. Except as documented, all other systems were reviewed and are negative. [facility] Past Medical History Medical History Acid reflux History of hyperlipidemia Left bundle branch block Missed Surgical History Surgical History History of cholecystectomy History of craniotomy History of endometrial ablation Previous section x 3 Family History Family History Father Family history of elevated blood lipids Diabetes mellitus Family history of diabetes mellitus in first degree relative Family history of hypercholesterolemia Family history of premature coronary heart disease Hypertension Sibling Family history of malignant neoplasm of thyroid Mother Diabetes mellitus Grandparent Diabetes mellitus Social History Social History (Updated 07/19/22 @ 00:12 by Razia Mcgarry PA-C) Social History: Code status: Full code. Smoking status: Never smoker Second hand tobacco smoke exposure: No Alcohol intake: never Substance use: never Spiritual care concerns: No Meds Home Medications and Allergies Home Medications Medication Instructions Recorded Confirmed Type gabapentin 300 mg capsule 600 mg PO HS 11/21/19 07/16/22 History cyclobenzaprine 5 mg tablet 5 mg PRN insomnia 07/16/22 07/16/22 History gabapentin 300 mg capsule 300 mg BID 07/16/22 07/16/22 History omeprazole 40 mg capsule,delayed 40 mg DAILY 07/16/22 07/16/22 History release Allergies Allergy/AdvReac Type Severity Reaction Status Date / Time aspirin Allergy Unknown BLEEDING Verified 03/21/22 10:09 Vital Signs Vital Signs - 24 hr 07/16/22 12:33
[2022-07-16 16:33] LABS: LDL Cholesterol Direct 96 mg/dL
[2022-07-16 16:35] LABS: Troponin I < 0.012 ng/mL (0.000-0.034)
--- NOTE | 2022-07-16 17:26 | ADMGEN ---
This patient, Kerry Julian, was admitted to IMU Room 201-01. Patient/family oriented to hospital policies and general routines including ID bracelet, bed and alarms, visiting hours, pain management, procedures, bathroom and other care routines, personal items, smoking policy, room service/diet, and visiting hours. Information on how to activate the Rapid Response Team has been discussed. Patient/Family are encouraged to report perceived risks to care and to ask questions if they do not understand what they are told or what they should do.
[2022-07-16 19:11] LABS: Troponin I < 0.012 ng/mL (0.000-0.034)
[2022-07-16] MEDS: BENZOCAINE/MENTHOL (*BKC) 18 EA LOZENGE 1 LOZENGE PO (20:13)
[2022-07-16] MEDS: IBUPROFEN 600 MG TABLET PO (20:17)
[2022-07-16] MEDS: METOPROLOL TARTRATE 25 MG TABLET PO (20:17)
[2022-07-17] VITALS (19 sets, daily range): BP systolic 107–139; BP diastolic 46–76; PULSE 66–95; RESP 14–20; TEMP 36.6–37.2; O2SAT 95–100
[2022-07-17] MEDS: BENZOCAINE/MENTHOL (*BKC) 18 EA LOZENGE 1 LOZENGE PO (00:10)
[2022-07-17] MEDS: IBUPROFEN 600 MG TABLET PO ×4 (01:22→23:37)
[2022-07-17] MEDS: GABAPENTIN 300 MG CAPSULE 600 MG PO ×2 (01:22→20:30)
[2022-07-17 04:46] LABS: Basophils Absolute Auto 0.1 K/mm3 (0.0-0.1); Basophils Percent Auto 0.3 % (0.2-1.2); Eosinophils Absolute Auto 0.3 K/mm3 (0-0.3); Eosinophils Percent Auto 1.9 % (0-4.4); Hematocrit 37.7 % (37.0-47.0); Hemoglobin 12.5 g/dL (12.0-15.0); Immature Granulocyte Absolute 0.09 K/mm3 (0.00-0.031); Immature Granulocyte Percent A 0.6 % (0-0.5); Lymphocytes Absolute Auto 1.09 K/mm3 (0.9-3.2); Lymphocytes Percent Auto 7.1 % (18.3-44.2); Mean Corpuscular HGB Conc 33.2 g/dl (32-36); Mean Corpuscular Hemoglobin 28.8 pg (26-34); Mean Corpuscular Volume 86.9 fl (80-100); Mean Platelet Volume 8.4 fl (7.4-10.4); Monocytes Absolute Auto 1.3 K/mm3 (0.1-0.6); Monocytes Percent Auto 8.2 % (2.6-8.5); Neutrophils Absolute Auto 12.6 K/mm3 (1.3-6.7); Neutrophils Percent Auto 81.9 % (45.5-73.1); Platelet Count Result 396 k/mm3 (150-375); Red Blood Count 4.34 M/mm3 (4.2-5.4); Red Cell Distribution Width 12.7 % (11.5-14.5); White Blood Count 15.3 K/mm3 (4.5-10.0)
[2022-07-17 05:05] LABS: Alanine Aminotransferase 37 U/L (6-35); Albumin Level 3.9 g/dL (3.5-5.1); Alkaline Phosphatase 148 U/L (38-126); Anion Gap 6 mmol/L (8-16); Aspartate Amino Transferase 34 U/L (14-36); Bilirubin,Total 0.6 mg/dL (0.2-1.3); Blood Urea Nitrogen 14 mg/dL (7-17); Calcium 8.5 mg/dL (8.4-10.2); Carbon Dioxide 24 mmol/L (22-30); Chloride 107 mmol/L (98-107); Estimated CRCL calculation 69 ml/min; Estimated Glomerular Filt Rate > 60; Glucose 105 mg/dL (65-110); Magnesium 1.8 mg/dL (1.6-2.3); Potassium 3.5 mmol/L (3.4-5.0); Sodium 137 mmol/L (137-145)
[2022-07-17] MEDS: GABAPENTIN 300 MG CAPSULE BY MOUTH ×2 (08:00→17:58)
[2022-07-17] MEDS: PANTOPRAZOLE 40 MG TABLET PO ×2 (08:00→17:58)
[2022-07-17] MEDS: ENOXAPARIN 40 MG/0.4 ML SYRINGE SUB-Q (08:00)
--- NOTE | 2022-07-17 08:00 | PM.PNCARD ---
Progress Note: A&P Assessment and Plan (1) PAT (paroxysmal atrial tachycardia): Code(s): I47.1 - Supraventricular tachycardia Status: Acute Assessment and Plan: EKG shows intermittent Atrial tachycardia. (2) PVT (paroxysmal ventricular tachycardia): Code(s): I47.29 - Other ventricular tachycardia Status: Acute Assessment and Plan: She had event monitor in Feb that showed nonsustained VT at 8 beats at 194 bpm. Started Metoprolol Tartate 25 mg BID. Since echo with EF 60-65%, grade I diastolic dysfunction, (E/e' 10) is OK will change to Sotalol 80 mg every 12 hours. Check EKG after each dose to monitor QT interval. TSH, Mag are OK. (3) LBBB (left bundle branch block): Code(s): I44.7 - Left bundle-branch block, unspecified Status: Acute (4) Chest pain: Code(s): R07.9 - Chest pain, unspecified Status: Acute Assessment and Plan: Troponin negative x 3 sets. Obtain lexiscan myoview stress test. (5) Hypersomnia: Code(s): G47.10 - Hypersomnia, unspecified Status: Acute Assessment and Plan: Will need outpatient sleep study. (6) History of hyperlipidemia: Code(s): Z86.39 - Personal history of other endocrine, nutritional and metabolic disease Status: Acute Assessment and Plan: Advise to maintain a low saturated fat diet. Subjective Date/time seen: 07/17/22 08:00 Interval history: She reports feeling palpitations intermittently over night. No chest pain. Exam Const: General: cooperative, healthy appearing and comfortable Orientation/consciousness: oriented to person, oriented to place and oriented to time Resp: Auscultation: clear to auscultation bilaterally, no crackles, no rales, no rhonchi and no wheezes Cardio: Rate: regular rate Rhythm: regular rhythm Heart sounds: no murmurs Neuro: General: oriented to person, oriented to place and oriented to time Extrem: Right lower extremity: no edema Left lower extremity: no edema Objective Data Vital Signs Vital Signs: Vital Signs - 24 hr 07/16/22 12:33 07/16/22 12:45 07/16/22 16:45 Temperature 98.6 F Pulse Rate 123 H 109 H 77 Respiratory Rate 23 H 16 Blood Pressure 153/57 H 130/63 Pulse Oximetry 100 Oxygen Delivery Room Air 07/16/22 15:47 07/16/22 13:30 07/16/22 12:31 Temperature Pulse Rate 91 86 64 Respiratory Rate 19 16 17 Blood Pressure 116/68 109/75 153/57 H Pulse Oximetry 98 Oxygen Delivery 07/16/22 16:45 07/16/22 18:09 07/16/22 17:30 Temperature 98.2 F Pulse Rate 77 78 Respiratory Rate 14 14 Blood Pressure 130/63 151/74 H Pulse Oximetry 98 100 Oxygen Delivery Room Air 07/16/22 18:00 07/16/22 20:17 07/16/22 20:00 Temperature 97.9 F Pulse Rate 86 81 82 Respiratory Rate 18 Blood Pressure 134/52 L Pulse Oximetry 100 Oxygen Delivery 07/16/22 20:00 07/16/22 20:00 07/16/22 22:00 Temperature Pulse Rate 84 63 Respiratory Rate Blood Pressure Pulse Oximetry Oxygen Delivery Room Air 07/16/22 23:36 07/17/22 00:00 07/17/22 00:00 Temperature 98.0 F Pulse Rate 76 70 70 Respiratory Rate 18 18 Blood Pressure 147/79 H Pulse Oximetry 97 97 Oxygen Delivery Room Air 07/17/22 02:00 07/17/22 04:00 07/17/22 04:00 Temperature Pulse Rate 70 74 74 Respiratory Rate 18 Blood Pressure Pulse Oximetry 97 Oxygen Delivery Room Air 07/17/22 04:00 07/17/22 06:00 Temperature 97.9 F Pulse Rate 87 68 Respiratory Rate 20 Blood Pressure 139/72 Pulse Oximetry 95 Oxygen Delivery Intake/Output Intake/Output: Intake & Output 07/14/22 07/15/22 07/16/22 07/17/22 23:59 23:59 23:59 23:59 Intake Total 1340 600 Output Total 1100 Balance 1340 -500 Meds/Results Medications: Active Medications Generic Name Dose Route Start Last Admin Trade Name Freq PRN Reason Stop Dose Admin Benzocaine 1 lozenge 07/16/22 18:35 07/17/22 00:10 Benzo
[2022-07-17] MEDS: METOPROLOL TARTRATE 25 MG TABLET PO (08:01)
--- NOTE | 2022-07-17 08:03 | ECG_ITS ---
Measurements Intervals [place] Rate: 72 P: 31 WI: 169 QRS: -43 QRSD: 134 T: 124 QT: 396 QTc: 435 Interpretive Statements SINUS RHYTHM MARKED LEFT AXIS DEVIATION [QRS AXIS < -30] LEFT BUNDLE BRANCH BLOCK [120+ ms QRS DURATION, 80+ ms Q/S IN V1/V2, 85+ ms R IN I/aVL/V5/V6] COMPARED TO ECG 07/16/2022 14:37:20 HEART RATE IS DECREASED Electronically Signed On 07-18-2022 13:01:29 [employer]CE[employer] LIFEGUARD SPECIALIST by José King M.D.
[2022-07-17 08:18] LABS: Strep Group A RT-PCR DETECTED (Negative)
--- NOTE | 2022-07-17 09:00 | EST_ITS ---
Patient Info Name: Kerry Julian Age: 52 years : 1970 Gender: Female Ht: 62 in Wt: 180 lbs BSA: 1.92 m2 HR: 68 bpm BP: 128 / 60 mmHg Heart Rhythm: Left Bundle Branch Block Exam Date: 07/17/2022 11:14 AM Exam Location: [facility] Stress Patient Status: Inpatient Admit Date: 07/17/2022 Staff Ordering Physician: Carroll Rabago DO Attending Provider: Sugar Conner DO Exercise Technologist: Rosmery Price CT Exercise Physician: Carroll Rabago DO Exam Type: CA stress luis armando w [place] Study Info Indications R07.9 - Chest pain, unspecified A regadenoson stress test was performed. Summary 1. 1. Inconclusive lexiscan stress test for ischemic ST changes by ECG criteria due to baseline LBBB. 2. 2. Stable hemodynamics throughout the test. 3. 3. Nuclear scan to follow and will be reported separately. Please correlate with it. 4. 4. Patient informed of the above results. Protocol: Lexiscan Stress ECG Details Stage: REST Duration (min): 1 min : 6 sec HR (bpm): 69 SBP (mmHg): 128 DBP (mmHg): 60 Stage: REST Duration (min): 5 min : 31 sec HR (bpm): 69 SBP (mmHg): 128 DBP (mmHg): 60 Stage: STAGE 1 Duration (min): 1 min : 0 sec HR (bpm): 112 SBP (mmHg): 143 DBP (mmHg): 69 Stage: RECOVERY Duration (min): 1 min : 0 sec HR (bpm): 111 SBP (mmHg): 143 DBP (mmHg): 69 Stage: RECOVERY Duration (min): 2 min : 0 sec HR (bpm): 99 SBP (mmHg): 143 DBP (mmHg): 69 Stage: RECOVERY Duration (min): 3 min : 0 sec HR (bpm): 107 SBP (mmHg): 153 DBP (mmHg): 75 Stage: RECOVERY Duration (min): 4 min : 0 sec HR (bpm): 90 SBP (mmHg): 153 DBP (mmHg): 75 Stage: RECOVERY Duration (min): 4 min : 49 sec HR (bpm): 87 SBP (mmHg): 132 DBP (mmHg): 81 Rest HR: 69 bpm Peak HR: 117 bpm Rest Sys BP: 128 mmHg Peak Sys BP: 153 mmHg Max Pred HR: 166 bpm % Max Pred HR: 70 % Target HR: 141 bpm Max RPP: 17,901 bpm*mmHg Termination Reason: Completed protocol Cardiac Symptoms: Shortness of breath Total Time: 1 min : 0 sec Rest Franco BP: 60 mmHg Peak Franco BP: 75 mmHg Total Dose: 0.4 mg Resting ECG Sinus rhythm, LBBB. Stress ECG No ST changes. Arrhythmias Supraventricular trigeminy. Report Signatures
[2022-07-17] MEDS: SOTALOL HCL 80 MG TABLET PO ×2 (09:40→20:30)
[2022-07-17] MEDS: cefTRIAXone 2 GM in SODIUM CHLORIDE 0.9% IV 100 ML 200 ML IVPB (13:04)
--- NOTE | 2022-07-17 13:14 | PM.IMPN ---
Progress Note: A&P Assessment and Plan (1) Atrial tachycardia: Code(s): I47.1 - Supraventricular tachycardia Status: Acute (2) Chest pain: Code(s): R07.9 - Chest pain, unspecified Status: Acute (3) Left bundle branch block: Code(s): I44.7 - Left bundle-branch block, unspecified Status: Acute (4) Sore throat: Code(s): J02.9 - Acute pharyngitis, unspecified Status: Acute (5) Elevated blood pressure reading: Code(s): R03.0 - Elevated blood-pressure reading, without diagnosis of hypertension Status: Acute (6) Hypersomnia: Code(s): G47.10 - Hypersomnia, unspecified Status: Acute Plan The patient presented to the emergency department for evaluation of palpitations and chest pain. Labs, imaging, EKG, and all reports were personally reviewed. EKG on arrival showed atrial tachycardia and a rate has improved since she has been started on metoprolol tartrate 25 mg b.i.d.. Troponin has thus far been negative and this does not appear to be in acute coronary syndrome however EKG shows a left bundle branch block. Echocardiogram has been obtained and is pending at the time of this dictation. Dr. Rabago plans on a stress test tomorrow if her troponin remains negative. She will be NPO after midnight in anticipation of the same. She has had a lot of stress recently which may be precipitating factor. She reports that she is tired all the time though she is working 80 hours a week. Apnea link ordered to screen for sleep apnea. She has also not been feeling well for couple of days. She was negative for influenza and COVID, strep screen is pending. Hold on antibiotics for now. Blood pressures have been running a bit high though she is noticeably anxious. He should improve with the addition of metoprolol. Continue to monitor and initiate antihypertensives if indicated. Her home medications will be reviewed and resumed as appropriate. 07/17/2022 interval history: 52 y/o female presented with c/o CP and palpitation, patient was seen by her Cardiology patient has history of palpitation had a he meant monitor in February nonsustained VT at 8 beats at 194 bpm. cardiology started the patient metoprolol 25 mg BID, today the Cardiology place the patient on sotalol 80 mg b.i.d., patient states palpitation is feeling better,, to further evaluate patient will have Lexiscan test and cardiac echo, patient also complains of sore throat is positive for Group strep A, will give ceftriaxon 2 gram x1 start patient on Amoxicillin for 10 days, will monitor and plan. Subjective Date/time seen: 07/17/22 13:14 Chest pain, palpitations. HPI-Narrative: This is a 52-year-old female with hyperlipidemia and GERD who presented to the emergency department from home for evaluation of chest pain and palpitations. Patient provides the following history. She has had intermittent episodes of palpitations since last fall and she wore an event monitor last February which showed an episode of nonsustained ventricular tachycardia for 8 beats at 194 beats per minute. She has continued to have symptoms but they are typically self-limiting. Her palpitations occur a lot at night and have wakened her from sleep. At time she feels a bit lightheaded or short of breath with the episodes but not always. She is able to walk up to a mile without palpitations, chest pain, or shortness of breath and she has not had syncope or near syncope. This morning she once again had sensations of racing heart and palpitations with some pressure-like discomfort in the chest radiating to the left shoulder and jaw associated with mild shortness of breath, lightheadedness, dizziness, nausea, and significant anxiety. She also reports that she had some chills today and she has just not been feeling well the past couple of days with posterior headache and sore throat. She admits that she has been more stressed recently and she has been working 80 hours a week since
[2022-07-18] VITALS (18 sets, daily range): BP systolic 101–122; BP diastolic 51–61; PULSE 46–66; RESP 12–20; TEMP 36.3–36.9; O2SAT 98–100
[2022-07-18] MEDS: IBUPROFEN 600 MG TABLET PO ×2 (06:00→14:08)
[2022-07-18 07:34] LABS: Hematocrit 38.3 % (37.0-47.0); Mean Corpuscular HGB Conc 33.9 g/dl (32-36); Mean Corpuscular Hemoglobin 29.2 pg (26-34); Mean Corpuscular Volume 86.1 fl (80-100); Mean Platelet Volume 8.1 fl (7.4-10.4); Platelet Count Result 394 k/mm3 (150-375); Red Blood Count 4.45 M/mm3 (4.2-5.4); Red Cell Distribution Width 12.8 % (11.5-14.5); White Blood Count 9.2 K/mm3 (4.5-10.0)
[2022-07-18 07:41] LABS: Anion Gap 3 mmol/L (8-16); Blood Urea Nitrogen 14 mg/dL (7-17); Calcium 8.9 mg/dL (8.4-10.2); Carbon Dioxide 32 mmol/L (22-30); Chloride 105 mmol/L (98-107); Estimated CRCL calculation 78 ml/min; Estimated Glomerular Filt Rate > 60; Glucose 103 mg/dL (65-110); Potassium 3.8 mmol/L (3.4-5.0); Sodium 140 mmol/L (137-145)
--- NOTE | 2022-07-18 07:57 | PM.PNCARD ---
Progress Note: A&P Assessment and Plan (1) PAT (paroxysmal atrial tachycardia): Code(s): I47.1 - Supraventricular tachycardia Status: Acute Assessment and Plan: EKG shows intermittent Atrial tachycardia. (2) PVT (paroxysmal ventricular tachycardia): Code(s): I47.29 - Other ventricular tachycardia Status: Acute Assessment and Plan: She had event monitor in Feb that showed nonsustained VT at 8 beats at 194 bpm. TSH and Mag are OK. Echo shows EF 60-65%, grade I diastolic dysfunction, (E/e' 10). Started Sotalol 80 mg every 12 hours on 07/17/22. Check EKG after each dose to monitor QT interval. Anticipate one more night stay. (3) LBBB (left bundle branch block): Code(s): I44.7 - Left bundle-branch block, unspecified Status: Acute (4) Chest pain: Code(s): R07.9 - Chest pain, unspecified Status: Acute Assessment and Plan: Troponin negative x 3 sets. 07/17/22 Llexiscan myoview stress test is unremarkable. (5) Hypersomnia: Code(s): G47.10 - Hypersomnia, unspecified Status: Acute Assessment and Plan: Will need outpatient sleep study. (6) History of hyperlipidemia: Code(s): Z86.39 - Personal history of other endocrine, nutritional and metabolic disease Status: Acute Assessment and Plan: Advise to maintain a low saturated fat diet. Subjective Date/time seen: 07/18/22 07:57 Interval history: She is having less palpitations intermittently.. No chest pain or sob. Exam Const: General: cooperative, healthy appearing and comfortable Orientation/consciousness: oriented to person, oriented to place and oriented to time Resp: Auscultation: clear to auscultation bilaterally, no crackles, no rales, no rhonchi and no wheezes Cardio: Rate: regular rate Rhythm: regular rhythm Heart sounds: no murmurs Neuro: General: oriented to person, oriented to place and oriented to time Extrem: Right lower extremity: no edema Left lower extremity: no edema Objective Data Vital Signs Vital Signs: Vital Signs - 24 hr 07/17/22 08:01 07/17/22 08:00 07/17/22 08:00 Temperature 98 F Pulse Rate 86 84 Respiratory Rate 16 Blood Pressure 137/76 Pulse Oximetry 95 98 Oxygen Delivery Room Air 07/17/22 08:00 07/17/22 10:00 07/17/22 09:40 Temperature Pulse Rate 74 81 92 Respiratory Rate Blood Pressure Pulse Oximetry Oxygen Delivery 07/17/22 12:39 07/17/22 12:00 07/17/22 14:00 Temperature 98.4 F Pulse Rate 68 74 72 Respiratory Rate 14 Blood Pressure 133/74 Pulse Oximetry 97 Oxygen Delivery 07/17/22 12:00 07/17/22 16:00 07/17/22 16:00 Temperature 98.9 F Pulse Rate 69 74 Respiratory Rate 14 Blood Pressure 116/60 Pulse Oximetry 97 98 Oxygen Delivery Room Air 07/17/22 16:00 07/17/22 18:00 07/17/22 20:05 Temperature 98.3 F Pulse Rate 74 80 Respiratory Rate 20 Blood Pressure 107/46 L Pulse Oximetry 98 100 Oxygen Delivery Room Air 07/17/22 20:30 07/17/22 20:00 07/17/22 20:00 Temperature Pulse Rate 95 85 85 Respiratory Rate 20 Blood Pressure Pulse Oximetry 100 Oxygen Delivery Room Air 07/17/22 22:30 07/17/22 23:40 07/17/22 22:00 Temperature 98.1 F Pulse Rate 66 66 Respiratory Rate 20 Blood Pressure 110/53 L Pulse Oximetry 99 100 Oxygen Delivery Room Air 07/18/22 00:00 07/18/22 00:00 07/18/22 02:00 Temperature Pulse Rate 62 62 57 L Respiratory Rate 20 Blood Pressure Pulse Oximetry 100 Oxygen Delivery Room Air 07/18/22 04:00 07/18/22 04:00 07/18/22 05:06 Temperature 98.4 F Pulse Rate 51 L 51 L 46 L Respiratory Rate 20 20 Blood Pressure 122/60 Pulse Oximetry 100 98 Oxygen Delivery Room Air 07/18/22 06:00 07/18/22 07:53 Temperature 97.4 F L Pulse Rate 52 L 58 L Respiratory Rate 16 Blood Pressure 104/51 L Pulse Oximetry 98 Oxygen Delivery Intake/Output Intake/Output:
[2022-07-18 07:58] LABS: Magnesium 1.8 mg/dL (1.6-2.3)
[2022-07-18] MEDS: cefTRIAXone 2 GM in SODIUM CHLORIDE 0.9% IV 100 ML 200 ML IVPB (08:54)
[2022-07-18] MEDS: ENOXAPARIN 40 MG/0.4 ML SYRINGE SUB-Q (08:54)
[2022-07-18] MEDS: SOTALOL HCL 80 MG TABLET PO ×2 (08:55→21:20)
[2022-07-18] MEDS: GABAPENTIN 300 MG CAPSULE BY MOUTH ×2 (08:55→17:33)
[2022-07-18] MEDS: PANTOPRAZOLE 40 MG TABLET PO ×2 (08:55→17:29)
--- NOTE | 2022-07-18 11:00 | ECG_ITS ---
Measurements Intervals [place] Rate: 60 P: 23 SD: 173 QRS: -39 QRSD: 128 T: 65 QT: 445 QTc: 446 Interpretive Statements SINUS RHYTHM MARKED LEFT AXIS DEVIATION [QRS AXIS < -30] LEFT BUNDLE BRANCH BLOCK [120+ ms QRS DURATION, 80+ ms Q/S IN V1/V2, 85+ ms R IN I/aVL/V5/V6] WARNING: DATA QUALITY MAY AFFECT INTERPRETATION COMPARED TO ECG 07/17/2022 15:56:48 NO SIGNIFICANT CHANGES Electronically Signed On 07-18-2022 13:14:36 CUSTOMS MANAGER by José King M.D.
--- NOTE | 2022-07-18 13:01 | PM.IMPN ---
Progress Note: A&P Assessment and Plan (1) Atrial tachycardia: Code(s): I47.1 - Supraventricular tachycardia Status: Acute (2) Chest pain: Code(s): R07.9 - Chest pain, unspecified Status: Acute (3) Left bundle branch block: Code(s): I44.7 - Left bundle-branch block, unspecified Status: Acute (4) Sore throat: Code(s): J02.9 - Acute pharyngitis, unspecified Status: Acute (5) Elevated blood pressure reading: Code(s): R03.0 - Elevated blood-pressure reading, without diagnosis of hypertension Status: Acute (6) Hypersomnia: Code(s): G47.10 - Hypersomnia, unspecified Status: Acute Plan The patient presented to the emergency department for evaluation of palpitations and chest pain. Labs, imaging, EKG, and all reports were personally reviewed. EKG on arrival showed atrial tachycardia and a rate has improved since she has been started on metoprolol tartrate 25 mg b.i.d.. Troponin has thus far been negative and this does not appear to be in acute coronary syndrome however EKG shows a left bundle branch block. Echocardiogram has been obtained and is pending at the time of this dictation. Dr. Rabago plans on a stress test tomorrow if her troponin remains negative. She will be NPO after midnight in anticipation of the same. She has had a lot of stress recently which may be precipitating factor. She reports that she is tired all the time though she is working 80 hours a week. Apnea link ordered to screen for sleep apnea. She has also not been feeling well for couple of days. She was negative for influenza and COVID, strep screen is pending. Hold on antibiotics for now. Blood pressures have been running a bit high though she is noticeably anxious. He should improve with the addition of metoprolol. Continue to monitor and initiate antihypertensives if indicated. Her home medications will be reviewed and resumed as appropriate. 07/18/2022 interval history: 52 y/o female presented with c/o CP and palpitation, patient was seen by her Cardiology patient has history of palpitation had a he meant monitor in February nonsustained VT at 8 beats at 194 bpm. cardiology started the patient metoprolol 25 mg BID, on 07/17 the Cardiology placed the patient on sotalol 80 mg b.i.d., rate is trending down, will continue to monitor for QT interval, patient states palpitation is feeling better,,to further evaluate patient will have Lexiscan test and cardiac echo, patient luis armando scan is negative for any ischemic event, cardiac ehco showed preserve LV function with EF of 86% and grade 1 diastolic dysfunction, patient also complains of sore throat is positive for Group strep A, on 07/17 ceftriaxon 2 gram x3 started patient on Amoxicillin for 10 days, will monitor and plan. Subjective Date/time seen: 07/18/22 13:01 The patient presented to the emergency department for evaluation of palpitations and chest pain. Labs, imaging, EKG, and all reports were personally reviewed. EKG on arrival showed atrial tachycardia and a rate has improved since she has been started on metoprolol tartrate 25 mg b.i.d.. Troponin has thus far been negative and this does not appear to be in acute coronary syndrome however EKG shows a left bundle branch block. Echocardiogram has been obtained and is pending at the time of this dictation. Dr. Rabago plans on a stress test tomorrow if her troponin remains negative. She will be NPO after midnight in anticipation of the same. She has had a lot of stress recently which may be precipitating factor. She reports that she is tired all the time though she is working 80 hours a week. Apnea link ordered to screen for sleep apnea. She has also not been feeling well for couple of days. She was negative for influenza and COVID, strep screen is pending. Hold on antibiotics for now. Blood pressures have been running a bit high though she is noticeably anxious. He should improve with the addition of metoprolol. C
[2022-07-18] MEDS: AMOXICILLIN 500 MG CAPSULE PO ×2 (14:10→21:20)
[2022-07-18] MEDS: GABAPENTIN 300 MG CAPSULE 600 MG PO (21:20)
--- NOTE | 2022-07-18 23:04 | ECG_ITS ---
Measurements Intervals [place] Rate: 56 P: 40 [place]: 180 QRS: 95 QRSD: 126 T: -23 QT: 452 QTc: 436 Interpretive Statements SINUS BRADYCARDIA BORDERLINE RIGHT AXIS DEVIATION [QRS AXIS > 90] LEFT BUNDLE BRANCH BLOCK INTERPRETATION BASED ON A DEFAULT AGE OF 40 YEARS COMPARED TO ECG 07/18/2022 11:09:51 NO SIGNIFICANT CHANGES Electronically Signed On 07-22-2022 16:13:03 [employer]AT JOINER LOCKSTITCH by Halina Callaway M.D.
[2022-07-19] VITALS (10 sets, daily range): BP systolic 110–119; BP diastolic 54–66; PULSE 49–84; RESP 16–20; TEMP 36.1–36.6; O2SAT 97–100
[2022-07-19] MEDS: BENZOCAINE/MENTHOL (*BKC) 18 EA LOZENGE 1 LOZENGE PO ×2 (00:01→08:23)
[2022-07-19] MEDS: IBUPROFEN 600 MG TABLET PO (03:35)
[2022-07-19 04:59] LABS: Hematocrit 38.6 % (37.0-47.0); Hemoglobin 12.7 g/dL (12.0-15.0); Mean Corpuscular HGB Conc 32.9 g/dl (32-36); Mean Corpuscular Hemoglobin 28.9 pg (26-34); Mean Corpuscular Volume 87.9 fl (80-100); Mean Platelet Volume 8.4 fl (7.4-10.4); Platelet Count Result 427 k/mm3 (150-375); Red Blood Count 4.39 M/mm3 (4.2-5.4); Red Cell Distribution Width 12.6 % (11.5-14.5); White Blood Count 6.7 K/mm3 (4.5-10.0)
[2022-07-19 05:16] LABS: Anion Gap 7 mmol/L (8-16); Blood Urea Nitrogen 17 mg/dL (7-17); Calcium 8.8 mg/dL (8.4-10.2); Carbon Dioxide 25 mmol/L (22-30); Chloride 105 mmol/L (98-107); Estimated CRCL calculation 78 ml/min; Estimated Glomerular Filt Rate > 60; Glucose 95 mg/dL (65-110); Potassium 3.3 mmol/L (3.4-5.0); Sodium 137 mmol/L (137-145)
[2022-07-19] MEDS: AMOXICILLIN 500 MG CAPSULE PO ×2 (06:15→14:56)
--- NOTE | 2022-07-19 08:03 | PM.PNCARD ---
Progress Note: A&P Assessment and Plan (1) PAT (paroxysmal atrial tachycardia): Code(s): I47.1 - Supraventricular tachycardia Status: Acute Assessment and Plan: EKG shows intermittent Atrial tachycardia. (2) PVT (paroxysmal ventricular tachycardia): Code(s): I47.29 - Other ventricular tachycardia Status: Acute Assessment and Plan: She had event monitor in Feb that showed nonsustained VT at 8 beats at 194 bpm. TSH and Mag are OK. Echo shows EF 60-65%, grade I diastolic dysfunction, (E/e' 10). Started Sotalol 80 mg every 12 hours on 07/17/22. Checked EKG after each dose to monitor QT interval and they are OK. Continue Sotalol 80 mg BID. May d/c home from cardiology standpoint and f/u with me in 1 week. (3) LBBB (left bundle branch block): Code(s): I44.7 - Left bundle-branch block, unspecified Status: Acute (4) Chest pain: Code(s): R07.9 - Chest pain, unspecified Status: Acute Assessment and Plan: Troponin negative x 3 sets. 07/17/22 Llexiscan myoview stress test is unremarkable. (5) Hypersomnia: Code(s): G47.10 - Hypersomnia, unspecified Status: Acute Assessment and Plan: Will need outpatient sleep study. (6) History of hyperlipidemia: Code(s): Z86.39 - Personal history of other endocrine, nutritional and metabolic disease Status: Acute Assessment and Plan: Advise to maintain a low saturated fat diet. Subjective Date/time seen: 07/19/22 08:03 Interval history: No more palpitations. No chest pain or sob. Sore throat is improving. Exam Const: General: cooperative, healthy appearing and comfortable Orientation/consciousness: oriented to person, oriented to place and oriented to time Resp: Auscultation: clear to auscultation bilaterally, no crackles, no rales, no rhonchi and no wheezes Cardio: Rate: regular rate Rhythm: regular rhythm Heart sounds: no murmurs Neuro: General: oriented to person, oriented to place and oriented to time Extrem: Right lower extremity: no edema Left lower extremity: no edema Objective Data Vital Signs Vital Signs: Vital Signs - 24 hr 07/18/22 08:55 07/18/22 10:00 07/18/22 12:00 Temperature 98.3 F Pulse Rate 66 59 L 54 L Respiratory Rate 12 Blood Pressure 114/61 Pulse Oximetry 98 Oxygen Delivery 07/18/22 12:00 07/18/22 12:00 07/18/22 14:00 Temperature Pulse Rate 54 L 54 L 55 L Respiratory Rate 12 Blood Pressure Pulse Oximetry 98 Oxygen Delivery Room Air 07/18/22 16:00 07/18/22 16:00 07/18/22 16:00 Temperature 97.8 F Pulse Rate 51 L 59 L 59 L Respiratory Rate 20 20 Blood Pressure 121/55 L Pulse Oximetry 98 98 Oxygen Delivery Room Air 07/18/22 18:00 07/18/22 20:19 07/18/22 21:20 Temperature 98.3 F Pulse Rate 59 L 53 L 64 Respiratory Rate 20 Blood Pressure 101/55 L Pulse Oximetry 99 Oxygen Delivery 07/18/22 23:54 07/18/22 20:00 07/18/22 22:00 Temperature 98.1 F Pulse Rate 54 L 51 L 58 L Respiratory Rate 20 Blood Pressure 109/58 L Pulse Oximetry 100 Oxygen Delivery 07/19/22 00:00 07/18/22 20:00 07/19/22 00:00 Temperature Pulse Rate 55 L Respiratory Rate Blood Pressure Pulse Oximetry Oxygen Delivery Room Air Room Air 07/19/22 02:00 07/19/22 03:54 07/19/22 04:00 Temperature 97.9 F Pulse Rate 52 L 60 Respiratory Rate 20 Blood Pressure 110/54 L Pulse Oximetry 100 Oxygen Delivery Room Air 07/19/22 04:00 07/19/22 06:00 Temperature Pulse Rate 49 L 51 L Respiratory Rate Blood Pressure Pulse Oximetry Oxygen Delivery Intake/Output Intake/Output: Intake & Output 07/16/22 07/17/22 07/18/22 07/19/22 23:59 23:59 23:59 23:59 Intake Total 1340 1500 1930 800 Output Total 3000 2500 1000 Balance 9997 -5300 -604 -200 Meds/Results Medications: Active Medications Generic Name Dose Route Start Last Admin Trade Name Freq
[2022-07-19] MEDS: GABAPENTIN 300 MG CAPSULE BY MOUTH (08:21)
[2022-07-19] MEDS: ENOXAPARIN 40 MG/0.4 ML SYRINGE SUB-Q (08:22)
[2022-07-19] MEDS: PANTOPRAZOLE 40 MG TABLET PO (08:22)
[2022-07-19] MEDS: SOTALOL HCL 80 MG TABLET PO (08:22)
[2022-07-19] MEDS: cefTRIAXone 2 GM in SODIUM CHLORIDE 0.9% IV 100 ML 200 ML IVPB (08:23)
--- NOTE | 2022-07-19 10:55 | ECG_ITS ---
Measurements Intervals [place] Rate: 51 P: 22 NM: 172 QRS: -42 QRSD: 130 T: 64 QT: 473 QTc: 439 Interpretive Statements SINUS BRADYCARDIA MARKED LEFT AXIS DEVIATION [QRS AXIS < -30] LEFT BUNDLE BRANCH BLOCK [120+ ms QRS DURATION, 80+ ms Q/S IN V1/V2, 85+ ms R IN I/aVL/V5/V6] COMPARED TO ECG 07/18/2022 11:09:51 SINUS BRADYCARDIA NOW PRESENT Electronically Signed On 07-19-2022 19:42:57 [employer]UR[employer] TECHNICIAN by Eva Welsh M.D.
--- NOTE | 2022-07-19 11:56 | PM.DS ---
DS: Admitting Diagnosis Discharge Date July 19, 2022 Admitting Diagnosis SVT DS: Discharge Diagnosis Discharge Diagnosis (1) Atrial tachycardia: Code(s): I47.1 - Supraventricular tachycardia Status: Acute (2) Chest pain: Code(s): R07.9 - Chest pain, unspecified Status: Acute (3) Left bundle branch block: Code(s): I44.7 - Left bundle-branch block, unspecified Status: Acute (4) Sore throat: Code(s): J02.9 - Acute pharyngitis, unspecified Status: Acute (5) Elevated blood pressure reading: Code(s): R03.0 - Elevated blood-pressure reading, without diagnosis of hypertension Status: Acute (6) Hypersomnia: Code(s): G47.10 - Hypersomnia, unspecified Status: Acute DS: Summary Hospital Course Hospital Course: Admitted for SVT. Started on sotalol. No more episodes. Follow Cardiology as an outpatient Time Spent with Patient Time attestation: Total time spent providing and/or coordinating discharge services: Exam Narrative: General: Well-developed, nontoxic-appearing female in the semi-Feng position in bed. Weight: 81.7 kg. BMI: 32 point HEENT: PERRL, EOMI. Sclera anicteric. Oral mucosa moist. Oropharynx is mildly erythematous with some tonsillar exudate. Neck: Supple. No lymphadenopathy or midline vertebral tenderness. Respiratory: Lungs are clear to auscultation bilaterally. Cardiovascular: Tachycardic. No significant murmur. Chest: No tenderness to palpation over the chest wall. Gastrointestinal: Abdomen is soft, nontender, and nondistended with positive bowel sounds. Skin: Warm and dry. No rash or lesions on limited exam. Extremities: No cyanosis, clubbing, or edema. Radial and pedal pulses intact. Neurological: Alert. Cranial nerves 2-12 are grossly intact. No gross focal deficits to casual conversation. Psychiatric: Cooperative with normal mood. Slightly anxious. DS: Data Data Completed and Pending Labs on day of discharge: Labs from last 24 hours 07/19/22 07/19/22 04:01 04:01 WBC 6.7 RBC 4.39 Hgb 12.7 Hct 38.6 MCV 87.9 MCH 28.9 MCHC 32.9 RDW 12.6 Plt Count 427 H MPV 8.4 Sodium 137 Potassium 3.3 L Chloride 105 Carbon Dioxide 25 Anion Gap 7 L BUN 17 Creatinine 0.70 Estim Creat Clear Calc 78 Estimated GFR > 60 Glucose 95 Calcium 8.8 Magnesium 2.0 Discharge Plan Discharge Attending physician on discharge: José Jimenez Consulting providers: Carroll Rabago Discharging Clinician: José Jimenez Patient Disposition: Home, Self-Care Activity: no preference Diet: as tolerated Patient Instructions: Antibiotic Form, Amoxicillin (By mouth), Sotalol (By mouth), A-fib (Atrial Fibrillation) (DC), Strep Throat (DC), Pain Management (DC) Stand Alone Forms: General Discharge Information Follow-up/Referrals: Rupesh,Andrez Huston MD [Primary Care Provider] - Carroll Rabago DO [Physician] - Discharge Medications: New sotalol 80 mg Tablet 80 mg PO Q12HR 14 Days Qty: 28 0RF cefdinir 300 mg capsule 300 mg PO Q12H Qty: 10 0RF Continued gabapentin 300 mg capsule 600 mg PO HS omeprazole 40 mg capsule,delayed release(DR/EC) 40 mg DAILY gabapentin 300 mg capsule 300 mg BID Rx Instructions: Pt reports taking 300 mg in the morning and afternoon, and 600mg po HS cyclobenzaprine 5 mg tablet 5 mg PRN Date of admission: 07/17/22 11:07 Primary Care Provider: RupeshAndrez Admitting Provider: Sugar Conner Attending physician on admission: Sugar Conner Condition: Stable
== END 2022-07-19 15:05 | disposition home or self-care (01) | DRG 310 ==
LOC: ANHED 15:27 → ANHIMU 16:08
PROVIDERS: Family Medicine; Internal Medicine Cardiovascular Disease; Physician Assistant; Admitting Provider Student in an Organized Health Care Education/Training Program; Emergency Provider Emergency Medicine; PCP Internal Medicine; Visit Provider Chiropractor
DX: I47.1 Supraventricular tachycardia (principal); I47.29 Other ventricular tachycardia; I44.7 Left bundle-branch block, unspecified; J02.0 Streptococcal pharyngitis; K21.9 Gastro-esophageal reflux disease without esophagitis; E78.5 Hyperlipidemia, unspecified; G47.10 Hypersomnia, unspecified; Z20.822 Contact with and (suspected) exposure to COVID-19
CPT/HCPCS: 36415; 70450; 71045; 74018; 78452; 80048; 80053; 80061; 83690; 83735; 84443; 84484; 85025; 85027; 85380; 85610; 85730; 87636; 87651; 87880; 93005; 93017; 93306; 94762; 96361; 96372; 96374; 99285; A9270; A9502; G0378; J0131; J0696; J1650; J7030

== ENCOUNTER 2023-02-22 09:52 | Emergency (ER) | payer OTHER, SELFPAY ==
--- NOTE | ~2023-02-22 | CT_ITS ---
EXAMINATION: CT brain wo con DATE: 02/22/2023 12:14 INDICATION: Posterior headache for 2 weeks, radiating to neck. History of craniotomy. TECHNIQUE: Computed tomography (CT) of the head was performed without intravenous contrast. The mA wa s adjusted according to patient size. Iterative reconstruction technique was employed. Exam dose: 60 5.33 mGy-cm total exam DLP. COMPARISON: July 16, 2022 CDT brain FINDINGS: Status post occipital craniectomy. No skull fracture or bone destruction is detected. No intracranial mass lesion or hemorrhage or cerebrovascular accident is noted. Bilateral carotid sip hon internal carotid artery calcifications are noted. Normal ventricular size. No subdural or epidura l hematoma. IMPRESSION: Status post occipital craniectomy Intracranial cerebral atherosclerosis. No other significant intracranial abnormality Reviewed, dictated and finalized at [facility]. Reviewed, dictated and finalized at [facility]. IMPRESSION: Status post occipital craniectomy Intracranial cerebral atherosclerosis. No other significant intracranial abnorm ality
[2023-02-22 09:59] VITALS: BP 147/76; PULSE 61; RESP 18; TEMP 36.4; O2SAT 100
[2023-02-22] MEDS: SODIUM CHLORIDE 0.9% IV 1,000 ML 999 ML IV CONT (12:20)
[2023-02-22] MEDS: PROCHLORPERAZINE EDISYLATE 10 MG/2 ML VIAL IV PUSH (12:20)
[2023-02-22] MEDS: diphenhydrAMINE HCl INJ 50 MG/ML VIAL 25 MG IV PUSH (12:21)
[2023-02-22 12:27] LABS: Basophils Percent Auto 0.5 % (0.2-1.2); Eosinophils Absolute Auto 0.2 K/mm3 (0-0.3); Eosinophils Percent Auto 2.8 % (0-4.4); Hemoglobin 12.9 g/dL (12.0-15.0); Immature Granulocyte Absolute 0.01 K/mm3 (0.00-0.031); Immature Granulocyte Percent A 0.1 % (0-0.5); Lymphocytes Percent Auto 20.3 % (18.3-44.2); Mean Corpuscular HGB Conc 33.1 g/dl (32-36); Mean Corpuscular Volume 90.7 fl (80-100); Monocytes Absolute Auto 0.5 K/mm3 (0.1-0.6); Monocytes Percent Auto 6.1 % (2.6-8.5); Neutrophils Absolute Auto 5.2 K/mm3 (1.3-6.7); Neutrophils Percent Auto 70.2 % (45.5-73.1); Platelet Count Result 367 k/mm3 (150-375); Red Cell Distribution Width 13.2 % (11.5-14.5); White Blood Count 7.4 K/mm3 (4.5-10.0)
[2023-02-22 12:37] LABS: Alanine Aminotransferase 47 U/L (6-35); Albumin Level 4.1 g/dL (3.5-5.1); Alkaline Phosphatase 107 U/L (38-126); Anion Gap 7 mmol/L (8-16); Aspartate Amino Transferase 34 U/L (14-36); Bilirubin,Total 0.7 mg/dL (0.2-1.3); Blood Urea Nitrogen 9 mg/dL (7-17); Calcium 9.2 mg/dL (8.4-10.2); Carbon Dioxide 26 mmol/L (22-30); Chloride 108 mmol/L (98-107); Estimated CRCL calculation 76 ml/min; Estimated Glomerular Filt Rate > 60; Glucose 86 mg/dL (65-110); Potassium 3.9 mmol/L (3.4-5.0); Sodium 141 mmol/L (137-145)
--- NOTE | 2023-02-22 12:43 | ED.GENADULT ---
HPI - General Adult General Chief complaint: Headache Stated complaint: headache x2 weeks Time Seen by Provider: 02/22/23 10:36 Source: patient Mode of arrival: ambulatory Limitations: no limitations History of Present Illness HPI narrative: This is a 53-year-old female with PMH of Chiari malformation, A-fib, HLD who presents to the ED with chief complaint of 2 weeks of headache. Reports she was having positional pain at the initial onset and seem to be specifically worse when she stood up. Ever since then the pain has not been positional in nature. It is just been intermittent but worse in the past day. She reports photophobia and vomiting. Denies fevers, chills, numbness, weakness, LOC, head injury, speech change, seizures. No neck pain or stiffness. Reports a remote history of urinary inflammation and craniectomy with plate put in. Related Data Home Medications Medication Instructions Recorded Confirmed cyclobenzaprine 5 mg tablet 5 mg PRN insomnia 07/16/22 01/29/23 gabapentin 300 mg capsule 300 mg BID 07/16/22 01/29/23 omeprazole 40 mg capsule,delayed 40 mg DAILY 07/16/22 01/29/23 release Allergies Allergy/AdvReac Type Severity Reaction Status Date / Time No Known Allergies Allergy Verified 02/22/23 10:41 Review of Systems Review of Systems: All systems as dictated in [facility] Past Medical History Medical History Acid reflux History of hyperlipidemia Left bundle branch block Missed Surgical History Surgical History History of cholecystectomy History of craniotomy History of endometrial ablation Previous section x 3 Family History Family History Father Family history of elevated blood lipids Diabetes mellitus Family history of diabetes mellitus in first degree relative Family history of hypercholesterolemia Family history of premature coronary heart disease Hypertension Sibling Family history of malignant neoplasm of thyroid Mother Diabetes mellitus Grandparent Diabetes mellitus Social History Social History Social History: Code status: Full code. Smoking status: Never smoker Second hand tobacco smoke exposure: No Alcohol intake: never Substance use: never Spiritual care concerns: No Exam Narrative: GENERAL: Well-appearing, well-nourished, and in no acute distress. HEAD: Normocephalic, atraumatic. EYES: PERRLA and EOMI. ENT: Nares clear, no rhinorrhea or epistaxis. Mucous membranes moist. Oropharynx without tonsillar hypertrophy exudate or other lesions. NECK: Supple. No adenopathy or masses. CHEST: No respiratory distress. Clear to auscultation. No wheezes rales or rhonchi HEART: Regular rate and rhythm. No murmur heard. Normal peripheral pulses. ABDOMEN: Soft, nontender, nondistended, normal active bowel sounds. MSK: Normal range of motion. No edema. SKIN: Warm, dry, no rash. NEURO: Alert and oriented x3. No focal deficits. PSYCH: Normal mood and affect. Course Course Emergency Course: Reevaluation 1346: Patient states her headache is fully resolved and she feels well enough to go home. Vital Signs Vital signs: Vital Signs Temperature 97.5 F L 02/22/23 09:59 Pulse Rate 61 02/22/23 09:59 Respiratory Rate 18 02/22/23 09:59 Blood Pressure 147/76 H 02/22/23 09:59 Pulse Oximetry 100 02/22/23 09:59 Oxygen Delivery Room Air 02/22/23 09:59 Temperature 97.5 F L 02/22/23 09:59 Pulse Rate 42 L 02/22/23 14:00 Respiratory Rate 16 02/22/23 14:00 Blood Pressure 138/63 02/22/23 14:00 Pulse Oximetry 100 02/22/23 09:59 Oxygen Delivery Room Air 02/22/23 09:59 Medical Decision Making [facility] Narrative Medical decision making narrative: This is a 53-year-old fe
[2023-02-22] MEDS: KETOROLAC 15 MG/ML VIAL (*BKC) IV PUSH (12:57)
[2023-02-22 14:00] VITALS: BP 138/63; PULSE 42; RESP 16
== END 2023-02-22 14:00 | disposition home or self-care (01) ==
PROVIDERS: Emergency Provider Physician Assistant; PCP Internal Medicine
DX: R51.9 Headache, unspecified (principal); K21.9 Gastro-esophageal reflux disease without esophagitis; E78.5 Hyperlipidemia, unspecified
CPT/HCPCS: 36415; 70450; 80053; 85025; 96361; 96374; 96375; 99284; J0780; J1200; J1885; J7030

== ENCOUNTER 2023-10-30 13:53 | Outpatient (CLI) | payer OTHER, SELFPAY ==
--- NOTE | ~2023-10-30 | DEXA_ITS ---
? Bone Density Report? Name:? CHANCE RICHTER Patient ID:??? [id number] Age:? 53 Sex:? Female Ethnicity:? White Date of : 1970 Indication: postmenopausal; screening for osteoporosis; height loss; rheumatoid arthritis; Referring Provider: GEOFFREYNEELA Study: Bone densitometry was performed. Exam Date: October 30, 2023 Accession number: [id number] Bone Density: Region? BMD??? T-score? Z-score?? Classification AP Spine(L1-L4)? 1.040?? -0.1?1.1? Normal Femoral Neck (Left)? 0.830?? -0.2? 0.9? Normal Total Hip (Left)? 0.943??? 0.0? 0.7? Normal Femoral Neck (Right)? 0.793?? -0.5? 0.6? Normal Total Hip (Right)? 0.929?? -0.1? 0.6? Normal Femoral Neck Mean? 0.812?? -0.3? 0.7? Normal Total Hip Mean? 0.936??? 0.0? 0.7? Normal World Health Organization criteria for BMD impression classify patients as: Normal (T-score at or above -1.0), Osteopenia (T-score between -1.0 and -2.5), or Osteoporosis (T-score at or below -2.5). 10-year Fracture Risk: FRAX not reported because: ? All T-scores for Spine Total, Hip Total, Femoral Neck at or above -1.0 Clinical Information Provided by Patient: Has rheumatoid arthritis Has used the following medications: Vitamin D, multi Patient maximum height was 62 Menopause Age: 48 No regular weight bearing exercise Does not regularly consume dairy products Drinks caffeinated beverages Onset of menses at age 10 Number of children 3 Impression: The patient has normal bone mass. Discussion: BONE DENSITY IS ABOVE THE MINIMUM DESIRABLE LEVEL AT ALL SKELETAL SITES TESTED. This patient?s bone mineral density is above the minimum desirable level (T- score -1.0 or better) at all sites measured. The patient should follow a healthful lifestyle (good nutrition with adequate calcium and vitamin D, and appropriate weight-bearing exercise). Follow-Up: Consider repeating this study in 5 years or sooner if there is some new clinical indication. Reported by: Dr. Tony Caraballo on 42:41:00 PM. BRIAN
--- NOTE | ~2023-10-30 | MM_ITS ---
EXAMINATION: MM screening nicolas BI w shabbir HISTORY: Screening mammogram TECHNIQUE: Craniocaudal and mediolateral oblique 3-D tomosynthesis images were obtained and synthetic 2-D images were generated. CAD analysis was submitted and interpreted. COMPARISON: 03/11/2022 bilateral diagnostic mammogram and Limited left breast ultrasound, reported neg ative. BREAST PARENCHYMAL COMPOSITION: The breasts are almost entirely fatty. FINDINGS: There is no evidence of suspicious mass, calcification, or architectural distortion to sugg est malignancy in either breast. There has been no suspicious interval change. IMPRESSION: 1. No mammographic evidence of malignancy. 2. Recommend routine screening mammography in one year. BI-RADS Category 1: Negative Reviewed, dictated and finalized at [facility].
== END 2023-10-30 13:54 | disposition home or self-care (01) ==
LOC: CHSIMG 13:57
PROVIDERS: PCP Internal Medicine; Visit Provider Internal Medicine
DX: Z12.31 Encounter for screening mammogram for malignant neoplasm of breast (principal); Z78.0 Asymptomatic menopausal state
CPT/HCPCS: 77063; 77067; 77080

== ENCOUNTER 2023-11-04 09:10 | Emergency (ER) | payer OTHER, SELFPAY ==
[2023-11-04 09:24] VITALS: BP 110/57; PULSE 55; RESP 16; TEMP 36.1; O2SAT 100
--- NOTE | 2023-11-04 15:20 | ED.FEMALEGU ---
HPI - Female Genitourinary General Chief complaint: Urogenital-Female Stated complaint: back pain/uti symptoms Time Seen by Provider: 11/04/23 09:30 Source: patient Mode of arrival: ambulatory Limitations: no limitations History of Present Illness HPI Narrative: 53-year-old female presents with complaint of low back aching for 2 weeks. Not worse with movement. Denies injury. Reports urinary frequency, urgency, incontinence for the past 3-5 days. Afebrile. Reports she has been fatigued. Patient reports similar symptoms with her last UTI 6 months ago. All systems reviewed and negative except as noted above. Related Data Home Medications Medication Instructions Recorded Confirmed gabapentin 300 mg capsule 300 mg BID 07/16/22 11/04/23 omeprazole 40 mg capsule,delayed 40 mg DAILY 07/16/22 11/04/23 release topiramate 50 mg tablet 50 mg PO BID 11/04/23 11/04/23 Allergies Allergy/AdvReac Type Severity Reaction Status Date / Time No Known Allergies Allergy Verified 11/04/23 09:27 Review of Systems Review of Systems: CONSTITUTIONAL: Denies fever, chills, or sweats. EYES: Denies visual changes, redness, or discharge. ENT: Denies rhinorrhea, congestion, sore throat, or otalgia. CARDIOVASCULAR: Denies chest pain, palpitations, or edema. RESPIRATORY: Denies cough or dyspnea. GASTROINTESTINAL: Denies abdominal pain, nausea, vomiting, or diarrhea. GENITOURINARY: Denies dysuria or hematuria. Reports frequency, urgency, incontinence with low back pain. SKIN: Denies rash or itching. MUSCULOSKELETAL: Denies back pain, joint pain, or myalgia. NEUROLOGIC: Denies headache, numbness, or weakness. PSYCHIATRIC: Denies anxiety or depression. All other systems reviewed are negative, except as documented in HPI. [facility] Past Medical History Medical History Acid reflux History of hyperlipidemia Left bundle branch block Missed Surgical History Surgical History History of cholecystectomy History of craniotomy History of endometrial ablation Previous section x 3 Family History Family History Father Family history of elevated blood lipids Diabetes mellitus Family history of diabetes mellitus in first degree relative Family history of hypercholesterolemia Family history of premature coronary heart disease Hypertension Sibling Family history of malignant neoplasm of thyroid Mother Diabetes mellitus Grandparent Diabetes mellitus Social History Social History (Reviewed 08/28/23 @ 15:27 by Denise Qureshi [facility]) Social History: Code status: Full code. Smoking status: Never smoker Second hand tobacco smoke exposure: No Alcohol intake: never Substance use: never Spiritual care concerns: No Comments At time of signature, agree with nursing past medical, surgical, social and family history. There is no relevant family history pertinent to the presenting complaint. Exam Narrative: GENERAL: This is a well-nourished, well-developed patient, in no apparent distress. HEAD: normocephalic, atraumatic. EYES: PERRL. Sclera clear/white. Vision is grossly intact. EARS: External ears normal NOSE: External nose normal NECK: Neck supple, non-tender without lymphadenopathy, masses or thyromegaly. CARDIOVASCULAR: Regular rate and rhythm without murmurs, gallops, or rubs. RESPIRATORY: Clear to auscultation. Breath sounds equal bilaterally. No wheezes, rales, or rhonchi. SKIN: warm, Dry, intact with no suspicious lesions or rash, good texture and turgor. NEURO: awake, alert, and oriented to person, place and time. There were no obvious focal neurologic abnormalities. EXTREMITIES: No joint tenderness, effusion, or edema noted. No calf tenderness. Negative Homans sign bilaterally. BACK: Nontender without deformity. No
== END 2023-11-04 09:48 | disposition home or self-care (01) ==
PROVIDERS: Emergency Provider Nurse Practitioner Family; PCP Internal Medicine
DX: N39.0 Urinary tract infection, site not specified (principal); K21.9 Gastro-esophageal reflux disease without esophagitis; E78.5 Hyperlipidemia, unspecified
CPT/HCPCS: 81003; 87086; 99213; G0463

== ENCOUNTER 2023-12-31 01:17 | Day surgery (SDC) | payer OTHER, SELFPAY ==
[2023-12-22 14:37] VITALS: BMI 30.2
[2023-12-31 09:32] VITALS: BP 158/64; PULSE 75; RESP 18; TEMP 36.1; O2SAT 100; BMI 31.6
--- NOTE | 2023-12-31 09:58 | P.PNAN_ITS ---
Anes - Initial Pre Proc Eval Procedure: Operation Date: 12/31/23 10:30 Proposed Procedures p Esophagogastroduodenoscopy & Colonoscopy - Jose Milan MD Date/Time: 12/31/23 09:58 Surgeon: Jose Milan MD Pre Op Diagnosis: Abdominal pain, Diarrhea Patient Data Age: 53 Gender: F Height: 1.57 m Weight: 78.3 kg Last Vital Signs Temp 97 F L 12/31/23 09:32 Pulse 75 12/31/23 09:32 Resp 18 12/31/23 09:32 BP 158/64 H 12/31/23 09:32 Pulse Ox 100 12/31/23 09:32 O2 Del Method Room Air 12/31/23 09:32 Allergies Allergy/AdvReac Type Severity Reaction Status Date / Time No Known Allergies Allergy Verified 12/31/23 09:31 Home Medications Medication Instructions Recorded Confirmed Type gabapentin 300 mg capsule 300 mg BID 07/16/22 12/31/23 History omeprazole 40 mg capsule,delayed 40 mg DAILY 07/16/22 12/31/23 History release atorvastatin 40 mg tablet 40 mg PO DAILY #90 tabs 01/29/23 12/31/23 Rx sotalol 80 mg tablet See Rx Instructions .Route 06/08/23 12/31/23 Rx .COMPLEX #180 tabs Patient hx anesthesia problems: none Family hx anesthesia problems: none Results Review: All pre-operative results and documents have been reviewed as part of the pre- operative evaluation. [facility] Past Medical History Medical History Acid reflux History of hyperlipidemia Left bundle branch block Missed Surgical History Surgical History History of cholecystectomy History of craniotomy History of endometrial ablation Previous section x 3 Family History Family History Father Family history of elevated blood lipids Diabetes mellitus Family history of diabetes mellitus in first degree relative Family history of hypercholesterolemia Family history of premature coronary heart disease Hypertension Sibling Family history of malignant neoplasm of thyroid Mother Diabetes mellitus Grandparent Diabetes mellitus Social History Social History Social History: Code status: Full code. Smoking status: Never smoker Second hand tobacco smoke exposure: No Alcohol intake: never Substance use: never Substance use type: does not use Living arrangements: with family Spiritual care concerns: No Anes - Eval Final PreProcedure Day of Procedure 12/31/23 09:58 Patient weight: obese Heart: regular rate and rhythm Lungs: clear to auscultation Airway: Mallampati scale class II Neurological: alert and oriented Last oral intake: >/= 8 hours ASA classification: III Emergent: no Anesthetic plan: proceed Anesthesia type and monitoring: general GIVS and standard monitoring Results Review: All pre-operative results and documents have been reviewed as part of the pre- operative evaluation. Informed Consent: The patient's anesthetic plan and its attendant risks and benefits were discussed with the patient/family/POA. Questions were solicited and answers provided to the satisfaction of the patient/family/POA.
[2023-12-31] MEDS: LACTATED RINGERS 1,000 ML 150 ML IV CONT (10:00)
--- NOTE | 2023-12-31 10:22 | PM.HPGS ---
History of Present Illness History of Present Illness Consent: Risks, benefits, and alternatives have been discussed and questions answered. Patient agrees to proceed with procedure. Chief complaint: Abdominal pain, Diarrhea Narrative: Kerry Julian is a 53 year old female here with diarrhea and abdominal discomfort for a month, had colonoscopy almost 5 years ago Review of Systems Review of Systems: All systems reviewed & are unremarkable except as noted in HPI and below PMFSH Past Medical History Medical History (Updated 12/31/23 @ 10:23 by Jose Milan MD) Abdominal pain Acid reflux Diarrhea History of hyperlipidemia Left bundle branch block Missed Surgical History Surgical History History of cholecystectomy History of craniotomy History of endometrial ablation Previous section x 3 Family History Family History Father Family history of elevated blood lipids Diabetes mellitus Family history of diabetes mellitus in first degree relative Family history of hypercholesterolemia Family history of premature coronary heart disease Hypertension Sibling Family history of malignant neoplasm of thyroid Mother Diabetes mellitus Grandparent Diabetes mellitus Social History Social History Social History: Code status: Full code. Smoking status: Never smoker Second hand tobacco smoke exposure: No Alcohol intake: never Substance use: never Substance use type: does not use Living arrangements: with family Spiritual care concerns: No Meds Home Medications and Allergies Home Medications Medication Instructions Recorded Confirmed Type gabapentin 300 mg capsule 300 mg BID 07/16/22 12/31/23 History omeprazole 40 mg capsule,delayed 40 mg DAILY 07/16/22 12/31/23 History release atorvastatin 40 mg tablet 40 mg PO DAILY #90 tabs 01/29/23 12/31/23 Rx sotalol 80 mg tablet See Rx Instructions .Route 06/08/23 12/31/23 Rx .COMPLEX #180 tabs Allergies Allergy/AdvReac Type Severity Reaction Status Date / Time No Known Allergies Allergy Verified 12/31/23 09:31 Vital Signs Vital Signs - 24 hr 12/31/23 09:32 Temperature 97 F L Pulse Rate 75 Respiratory Rate 18 Blood Pressure 158/64 H Pulse Oximetry 100 Oxygen Delivery Room Air Exam Const: General: comfortable and no acute distress HENMT: Face/Nose/Sinus: Normal nares present Eyes: General: appearance normal, both eyes and all related structures Neck: Neck: no JVD Resp: Auscultation: clear to auscultation bilaterally Cardio: Rate: regular rate Rhythm: regular rhythm GI: Inspection: non-distended GI Palp: Yes Soft to palpation Skin: General skin exam: normal color Neuro: General: gait normal Speech: normal speech Extrem: General: normal to inspection Psych: Mental Status: mental status grossly normal Assessment and Plan Assessment and plan (1) Diarrhea: Code(s): R19.7 - Diarrhea, unspecified Status: Acute Assessment and Plan: colonoscopy with random bx (2) Abdominal pain: Code(s): R10.9 - Unspecified abdominal pain Status: Acute Assessment and Plan: egd and colonoscopy
--- NOTE | 2023-12-31 10:35 | SUR.OPER ---
EGD end 1035 COLONOSCOPY START 104
[2023-12-31 10:53] VITALS: BP 105/58; PULSE 58; RESP 16; O2SAT 100
[2023-12-31 11:03] VITALS: BP 110/83; PULSE 54; RESP 13; O2SAT 100
[2023-12-31] MEDS: ONDANSETRON INJ 4 MG/2 ML VIAL IV PUSH (11:12)
[2023-12-31 11:13] VITALS: BP 103/64; PULSE 53; RESP 16; O2SAT 100
[2023-12-31 11:23] VITALS: PULSE 56; RESP 17
[2023-12-31] MEDS: ALBUTEROL SULFATE NEB 2.5 MG/3 ML INH INHALATION (11:23)
[2023-12-31 11:33] VITALS: PULSE 50; RESP 15
--- NOTE | 2023-12-31 11:45 | SUR.PHASEII ---
2 mg versed IV given by Babs Perry [employer]
== END 2023-12-31 12:20 | disposition home or self-care (01) ==
PROVIDERS: PCP Internal Medicine; Visit Provider Internal Medicine Gastroenterology
PROC: 0DJ08ZZ Inspection of Upper Intestinal Tract, Via Natural or Artificial Opening Endoscopic (ICD-10-PCS; CPT 43235; principal; 2023-12-31 10:30)
DX: K29.50 Unspecified chronic gastritis without bleeding (principal); D12.3 Benign neoplasm of transverse colon; K64.8 Other hemorrhoids; E78.5 Hyperlipidemia, unspecified; K21.9 Gastro-esophageal reflux disease without esophagitis; E66.9 Obesity, unspecified; Z68.31 Body mass index [BMI] 31.0-31.9, adult; Z98.890 Other specified postprocedural states; Z90.49 Acquired absence of other specified parts of digestive tract; Z86.79 Personal history of other diseases of the circulatory system; Z80.8 Family history of malignant neoplasm of other organs or systems; Z82.49 Family history of ischemic heart disease and other diseases of the circulatory system
CPT/HCPCS: 43239; 45385; 45380; 88305; 88342; 94640; J2001; J2250; J2405; J2704; J7120

== ENCOUNTER 2024-03-31 08:28 | Outpatient (CLI) | payer OTHER, SELFPAY | END 2024-03-31 08:29 | disposition home or self-care (01) | PROVIDERS: PCP Internal Medicine; Visit Provider Obstetrics & Gynecology | DX: N85.8 Other specified noninflammatory disorders of uterus (principal) | CPT/HCPCS: 36415; 86850; 86900; 86901 ==

== ENCOUNTER 2024-04-04 00:35 | Day surgery (SDC) | payer OTHER, SELFPAY ==
[2024-03-28 10:43] VITALS: BMI 32.0
--- NOTE | 2024-03-28 10:49 | PC.NURSE ---
Report to the Outpatient Waiting Room, entrance under the green pavilion located off [facility], at time _0800_ on date _[id number]_. Planned Procedure Time: _1000_.? Time changes happen often and if your time is changed the preop area will call you the afternoon before. - You and your visitor will be asked to self-screen and do not enter if you have any COVID symptoms. Please call surgeon if you need to reschedule. - A mask is optional within the hospital at this time. Patients may have clear liquids (water, carbonated beverages, clear teas, apple juice) until 3 hours prior to surgery with a maximum of 20 ounces. - No food from midnight until time of surgery and no smoking Take only the following medications with a SIP of water on the morning of surgery: __Sotolol and Gabapentin DO NOT STOP ANY OF YOUR OTHER PRESCRIPTION MEDICATIONS PRIOR TO SURGERY EXCEPT THE FOLLOWING Medications to discontinue per physician None Please no make-up, nail kenyan, hairspray, perfume, deodorant, or body powder the day of surgery.? No jewelry (including any body piercings) or valuables the day of surgery, leave them at home.? Please take a shower or bath the night before, or the morning of, surgery with an antibacterial soap.? Wear comfortable, loose fitting clothing.? - Jewelry must be removed prior to entering the operating room.? Rings and piercings that are not removed may be cut off. - The hospital will not accept responsibility for valuables.? - Please leave all valuables, including medications, at home the day of surgery. If you are going home after surgery, a licensed racecar driver must drive you home.? - NO public transportation without another adult if you receive anesthesia. - We recommend that an adult stay with you for 24 hours following discharge. - We also recommend that you do not drive, make important decision, drink alcoholic beverages, or take any drugs that were not prescribed by your health care provider for at least 24 hours after your discharge time. Follow any additional instructions given to you from your surgeon. Telephone instructions given to __Kerry_and asked if any additional questions and then verbalized understanding. Patient advised to call surgeon office or pre surgery nurse liaison [phone] if any additional questions.
--- NOTE | 2024-04-03 15:27 | P.HP_ITS ---
H&P: HPI History of Present Illness Date/Time: 04/03/24 15:27 Chief Complaint: pelvic pain Narrative: Kerry is a 54yo postmenopausal [id number] who presents for surgical intervention for chronic pelvic pain. She had a AREA RELIEF PILOT US for pelvic pain. She recently had a pap smear which was normal 12/2023. She is postmenopausal for a couple years. She had an ablation ~20 years ago and denies any bleeding since then. She denies any PMB. She has been having some random pelvic pains and back pains. She reports having some GI issues, but recently had a colonoscopy and it was normal. AREA RELIEF PILOT US shows possible fibroids/scar tissue as well as a possible endometrial cyst. She is not routinely sexually active. She reports the pain is very bothersome, does affect her life and is interested in surgery as OTC meds do not help. Review of Systems Constitutional: Constitutional: Denies chills, Denies fever(s) and Denies headache(s) Eyes: Eyes: Denies change in vision ENT: Denies dizziness and Denies headache(s) Cardiovascular: Cardiovascular: Denies chest pain and Denies dyspnea Respiratory: Respiratory: Denies cough and Denies dyspnea Gastrointestinal: Gastrointestinal: Denies abdominal pain and Denies change in stool character Genitourinary: Genitourinary: Denies abnormal vaginal bleeding, Reports dyspareunia, Reports pelvic pain, Denies vaginal discharge, Denies vaginal odor and Denies vaginal pruritus Neurologic: Denies dizziness and Denies headache(s) Psychiatric: Psychiatric: Denies anxiety and Denies depression [facility] Past Medical History Medical History A-fib Abdominal pain Acid reflux Diarrhea History of hyperlipidemia Left bundle branch block Missed Surgical History Surgical History H/O spinal fusion History of cholecystectomy History of craniotomy History of endometrial ablation History of tubal ligation Previous section x 3 Family History Family History Father Family history of elevated blood lipids Diabetes mellitus Family history of diabetes mellitus in first degree relative Family history of hypercholesterolemia Family history of premature coronary heart disease Hypertension Sibling Family history of malignant neoplasm of thyroid Mother Diabetes mellitus Grandparent Diabetes mellitus Social History Social History Social History: Code status: Full code. Smoking status: Never smoker Second hand tobacco smoke exposure: No Alcohol intake: never Substance use: never Substance use type: does not use Do You Feel Safe in your Home?: Yes Lack of Transportation: No Lack of Food: Never True Current Housing: I Have Housing Concerned About Future Housing: No Difficulty Paying Gas/Electric Bills: No Difficulty Paying for Meds: No Currently Unemployed: No Education: Bachelor's Degree Difficulty w/ Childcare or Family Care: No Living arrangements: with family Occupation/Education: occupation Gender identity (if verbalized by the patient): Female Spiritual care concerns: No Meds Home Medications and Allergies Home Medications Medication Instructions Recorded Confirmed Type gabapentin 300 mg capsule 300 mg PO BID 07/16/22 03/28/24 History omeprazole 40 mg capsule,delayed 40 mg PO DAILY 07/16/22 03/28/24 History release atorvastatin 40 mg tablet 40 mg PO DAILY #90 tabs 01/29/23 03/28/24 Rx clobetasol 0.05 % topical ointment 1 applic topical DAILY 2 weeks #60 01/04/24 03/28/24 Rx grams sotalol 80 mg tablet See Rx Instructions .Route 03/28/24 03/28/24 Rx .COMPLEX #180 tabs Allergies Allergy/AdvReac Type Severity Reaction Status Date / Time No Known Allergies Allergy Verified 03/28/24 10:42 Exam Const: General: cooperative, healthy appearing, comfortable and no acute distress Orientation/consciousness: patient oriented x3 Resp: Effort & Inspection: normal respiratory effort Cardio: Rate: regular rate GI: Inspection: normal to inspection GI Palp: No abdominal tenderness and Yes Soft to palpation : Other: deferred to OR Skin: General skin exam: normal color Neuro: General: patient oriented x3 Extrem: General: normal to inspection Psych: Appearance: grossly normal Affect: normal affect Attitude: cooperative Assessment and Plan Assessment and plan (1) Pelvic pain: Code(s): R10.2 - Pelvic and perineal pain Status: Acute (2) Uterine mass: Code(s): N85.8 - Other specified noninflammatory disorders of uterus Status: Acute Assessment and Plan: - suspecting fibroid vs scar tissue Plan - I suspected that the mass on top of the uterus may be a fibroid and/or scar tissue from her prior 3 c-sections, but what I cannot tell is if bowel is adhered to the scar tissue - I will do a diagnostic laparoscopy; if significant bowel adhesions to uterus, will stop surgery and refer to nurse gynecology onc. - If no significant bowel involvement, will proceed with robotic assisted total laparoscopic hysterectomy with bilateral salpingectomy and cystoscopy, possible unilateral oophorectomy - Risks and benefits of surgery discussed in detail including but not limited to pain, bleeding, injury to nearby structures (bowel, bladder, ureter, ovary, blood vessels, nerves) or infection (skin, vaginal, pelvic). - I have also discussed the recommended time off and natural course of healing/downtime
--- NOTE | 2024-04-03 16:01 | WPDANESEPP ---
Anes - Eval Pre Procedure Procedure: Operation Date: 04/04/24 10:00 Proposed Procedures p Robotic Assisted Total Laparoscopic Hysterectomy with Bilateral Salpingectomy - Loretta Bagley MD Date/Time: 04/03/24 16:01 Pre Op Diagnosis: uterine mass Patient Data Age: 54 Gender: F Height: 1.57 m Weight: 79.5 kg Allergies Allergy/AdvReac Type Severity Reaction Status Date / Time No Known Allergies Allergy Verified 03/28/24 10:42 Home Medications Medication Instructions Recorded Confirmed Type gabapentin 300 mg capsule 300 mg PO BID 07/16/22 03/28/24 History omeprazole 40 mg capsule,delayed 40 mg PO DAILY 07/16/22 03/28/24 History release atorvastatin 40 mg tablet 40 mg PO DAILY #90 tabs 01/29/23 03/28/24 Rx clobetasol 0.05 % topical ointment 1 applic topical DAILY 2 weeks #60 01/04/24 03/28/24 Rx grams sotalol 80 mg tablet See Rx Instructions .Route 03/28/24 03/28/24 Rx .COMPLEX #180 tabs Patient hx anesthesia problems: none Family hx anesthesia problems: none Results Review: All pre-operative results and documents have been reviewed as part of the pre-operative evaluation. [facility] Past Medical History Medical History A-fib Abdominal pain Acid reflux Diarrhea History of hyperlipidemia Left bundle branch block Missed Surgical History Surgical History H/O spinal fusion History of cholecystectomy History of craniotomy History of endometrial ablation History of tubal ligation Previous section x 3 Family History Family History Father Family history of elevated blood lipids Diabetes mellitus Family history of diabetes mellitus in first degree relative Family history of hypercholesterolemia Family history of premature coronary heart disease Hypertension Sibling Family history of malignant neoplasm of thyroid Mother Diabetes mellitus Grandparent Diabetes mellitus Social History Social History Social History: Code status: Full code. Smoking status: Never smoker Second hand tobacco smoke exposure: No Alcohol intake: never Substance use: never Substance use type: does not use Do You Feel Safe in your Home?: Yes Lack of Transportation: No Lack of Food: Never True Current Housing: I Have Housing Concerned About Future Housing: No Difficulty Paying Gas/Electric Bills: No Difficulty Paying for Meds: No Currently Unemployed: No Education: Bachelor's Degree Difficulty w/ Childcare or Family Care: No Living arrangements: with family Occupation/Education: occupation Gender identity (if verbalized by the patient): Female Spiritual care concerns: No Exam Day of Procedure 04/03/24 16:01
[2024-04-04] VITALS (9 sets, daily range): BP systolic 120–143; BP diastolic 56–85; PULSE 42–70; RESP 12–16; TEMP 36.4; O2SAT 98–100
--- NOTE | 2024-04-04 07:12 | WPDHPUPDATE1 ---
History and Physical Update Update Date/Time: 04/04/24 07:12 History and Physical has been reviewed, including an updated exam of the patient. There are NO changes in the patient's condition. Risks, benefits, and alternatives have been discussed and questions answered. Patient agrees to proceed with diagnostic laparoscopy; if significant bowel adhesions to uterus, will stop surgery and refer to truck driver onc. - If no significant bowel involvement, will proceed with robotic assisted total laparoscopic hysterectomy with bilateral salpingectomy and cystoscopy, possible unilateral oophorectomy.
[2024-04-04] MEDS: LACTATED RINGERS 1,000 ML 30 ML IV CONT (08:00)
[2024-04-04] MEDS: KETOROLAC 15 MG/ML VIAL (*BKC) IV PUSH (08:30)
[2024-04-04] MEDS: ACETAMINOPHEN 500 MG TABLET 1000 MG PO (08:30)
--- NOTE | 2024-04-04 09:53 | WPDANESEPPF ---
Anes - Initial Pre Proc Eval Procedure: Operation Date: 04/04/24 10:00 Proposed Procedures p Robotic Assisted Total Laparoscopic Hysterectomy with Bilateral Salpingectomy - Loretta Bagley MD Date/Time: 04/04/24 09:53 Surgeon: Loretta Bagley MD Pre Op Diagnosis: uterine mass Patient Data Age: 54 Gender: F Height: 1.57 m Weight: 82.7 kg Last Vital Signs Temp 36.4 C L 04/04/24 08:55 Pulse 50 L 04/04/24 08:55 Resp 14 04/04/24 08:55 BP 129/70 04/04/24 08:55 Pulse Ox 99 04/04/24 08:55 O2 Del Method Room Air 04/04/24 08:55 Allergies Allergy/AdvReac Type Severity Reaction Status Date / Time No Known Allergies Allergy Verified 04/04/24 08:49 Home Medications Medication Instructions Recorded Confirmed Type gabapentin 300 mg capsule 300 mg PO BID 07/16/22 04/04/24 History omeprazole 40 mg capsule,delayed 40 mg PO DAILY 07/16/22 04/04/24 History release atorvastatin 40 mg tablet 40 mg PO DAILY #90 tabs 01/29/23 04/04/24 Rx clobetasol 0.05 % topical ointment 1 applic topical DAILY 2 weeks #60 01/04/24 04/04/24 Rx grams sotalol 80 mg tablet See Rx Instructions .Route 03/28/24 04/04/24 Rx .COMPLEX #180 tabs Patient hx anesthesia problems: none Family hx anesthesia problems: none Results Review: All pre-operative results and documents have been reviewed as part of the pre-operative evaluation. FORMERLY [facility], [facility] Past Medical History Medical History A-fib Abdominal pain Acid reflux Diarrhea History of hyperlipidemia Left bundle branch block Missed Surgical History Surgical History H/O spinal fusion History of cholecystectomy History of craniotomy History of endometrial ablation History of tubal ligation Previous section x 3 Family History Family History Father Family history of elevated blood lipids Diabetes mellitus Family history of diabetes mellitus in first degree relative Family history of hypercholesterolemia Family history of premature coronary heart disease Hypertension Sibling Family history of malignant neoplasm of thyroid Mother Diabetes mellitus Grandparent Diabetes mellitus Social History Social History Social History: Code status: Full code. Smoking status: Never smoker Second hand tobacco smoke exposure: No Alcohol intake: never Substance use: never Substance use type: does not use Do You Feel Safe in your Home?: Yes Lack of Transportation: No Lack of Food: Never True Current Housing: I Have Housing Concerned About Future Housing: No Difficulty Paying Gas/Electric Bills: No Difficulty Paying for Meds: No Currently Unemployed: No Education: Bachelor's Degree Difficulty w/ Childcare or Family Care: No Living arrangements: with family Occupation/Education: occupation Gender identity (if verbalized by the patient): Female Spiritual care concerns: No Anes - Eval Final PreProcedure Day of Procedure 04/04/24 09:53 Patient weight: obese Heart: regular rate and rhythm Lungs: clear to auscultation Airway: Mallampati scale class II Neurological: alert and oriented Last oral intake: >/= 8 hours ASA classification: III Emergent: no Anesthetic plan: proceed Anesthesia type and monitoring: general ETT and standard monitoring Results Review: All pre-operative results and documents have been reviewed as part of the pre-operative evaluation. Informed Consent: The patient's anesthetic plan and its attendant risks and benefits were discussed with the patient/family/POA. Questions were solicited and answers provided to the satisfaction of the patient/family/POA.
[2024-04-04] MEDS: ceFAZolin 2 GM/D5W 50 ML 2 GM/50 ML BAG IVPB (10:12)
[2024-04-04] MEDS: metroNIDAZOLE 500 MG/ISO 100ML 500 MG/100 ML BAG 100 MG IVPB (10:35)
[2024-04-04] MEDS: LIDO 1%/EPINEPHRINE 1:100,000 50 ML VIAL 10 ML INFILTRATE (11:14)
--- NOTE | 2024-04-04 11:30 | W.PM.PROC2 ---
Procedure Note - Detailed Date of Procedure 04/04/24 Pre-op Diagnosis uterine mass pelvic pain Post-op Diagnosis Other (significant pelvic/abdominal adhesions) Procedure Performed Diagnostic laparoscopy with lysis of adhesions Surgeon Loretta Bagley MD Anesthesia General and Local (10cc of 1% lidocaine w/ epi) Findings H/o x3 and endometrial ablation. Normal cervix; uterus sounded to 7cm but scar tissue noted from prior ablation. On entry into the abdomen, omental adhesions to the pelvis and anterior abdominal wall. The omentum was adhered to the anterior abdominal wall and fundus of the uterus. Those omental adhesions (mass seen on [employer] PROFESSOR US) were taken down with the LigaSure device and the uterus was completely adhered to the anterior abdominal wall; no plane was identified between the uterus, abdominal wall, or bladder. The ovaries were seen bilaterally; stretched out, thin tubes. Description of Procedure Kerry was taken to the operating room where she was placed under general anesthesia without issues. She received 2 g Ancef and 500mg Metronidazole. She was then prepped and draped in the usual sterile fashion in the dorsal lithotomy position with her legs in low Lopez stirrups, her arms tucked at her side, with a strap over her chest. A time-out was performed. My attention was turned down below where a Magaña catheter was placed. A bivalve speculum was placed within the vagina. The cervix was easily identified and the anterior lip of the cervix was grasped with single-tooth tenaculum. The uterus was then sounded to 7cm. The cervix was serially dilated to allow for the IZZY uterine manipulator; which was placed w/o issue (6cm tip with 2.5cm cervical ring). My gloves were changed and attention was then turned to the abdomen. An OG tube was verified in place and a 5 mm trocar was placed under direct visualization at Samano's point without issue. Once intra-abdominal placement was confirmed, the abdomen was insufflated with carbon dioxide gas. An abdominal survey was performed and the above findings were noted. An additional 5mm port was placed on left side of the patient. Using the LigaSure device the omental adhesions were slowly and carefully taken down making sure to verified there was no bowel within the adhesions. Slowly and carefully all the omental adhesions were removed and I was able to visualize the pelvis. The ovaries were identified and within normal limits otherwise the remaining pelvic organs were completely adhered to the anterior abdominal wall. I attempted to find multiple planes for dissection near the round ligament/ cornual a however the scar tissue was dense and not easily dissected. The bladder was not able to be identified at all. There was no plane between the anterior abdominal wall bladder or uterus and I decided to not proceed with hysterectomy as I was concerned significant bladder or vessel injury could occur. I had highly counseled her that I would perform diagnostic laparoscopy, and if significant scar tissue was noted, I would not complete the hysterectomy, but would refer her to a specialist. The Magaña catheter and uterine manipulator's were removed. The 2 laparoscopic incisions were reapproximated using 4-0 Monocryl and covered with Dermabond. The laparoscopic incisions were infiltrated with local anesthesia for better pain control. Sponge, lap, instrument, and needle counts were correct at the end the procedure. Patient was awoken from general anesthesia and taken to recovery in a stable conditions with plans of discharge home today. Estimated Blood Loss 5 IV Fluids 800 Urine Output 100 Pathology None sent Complications No immediate complications Condition Stable Disposition Same day [facility] Billing Surgery - Charge Forward: Surgery Billing
[2024-04-04] MEDS: fentaNYL CITRATE INJ (*CRX) 100 MCG/2 ML VIAL 25 MCG IV PUSH ×2 (11:41→11:44)
--- NOTE | 2024-04-04 11:56 | SUR.PHASEI ---
1155: Simple mask removed.
== END 2024-04-04 13:40 | disposition home or self-care (01) ==
PROVIDERS: PCP Internal Medicine; Visit Provider Obstetrics & Gynecology
PROC: (CPT 58660; principal; 2024-04-04 10:00)
DX: N85.8 Other specified noninflammatory disorders of uterus (principal); N73.6 Female pelvic peritoneal adhesions (postinfective); K21.9 Gastro-esophageal reflux disease without esophagitis; E78.5 Hyperlipidemia, unspecified; E66.9 Obesity, unspecified; Z68.33 Body mass index [BMI] 33.0-33.9, adult; Z98.890 Other specified postprocedural states; Z98.1 Arthrodesis status; Z90.49 Acquired absence of other specified parts of digestive tract; Z98.51 Tubal ligation status; Z98.891 History of uterine scar from previous surgery; Z86.79 Personal history of other diseases of the circulatory system; Z80.8 Family history of malignant neoplasm of other organs or systems; Z82.49 Family history of ischemic heart disease and other diseases of the circulatory system
CPT/HCPCS: 58660; A9270; J0690; J1100; J1596; J1836; J1885; J2004; J2250; J2405; J2704; J3010; J7030; J7120

== ENCOUNTER 2024-10-09 08:33 | Emergency (ER) | payer OTHER, SELFPAY ==
--- NOTE | ~2024-10-09 | XR_ITS ---
3 VIEWS LUMBAR SPINE Ordering provider: Beba Cardona MD History: . Strain/sprain . Comparison: None. FINDINGS: VERTEBRAL BODIES: No visible fracture or subluxation. Degenerative changes of the spine. DISK SPACES: Narrowing of the disc L5-S1. SOFT TISSUES: Normal. Bilateral sacroiliitis with fusion. IMPRESSION: No acute osseous abnormality lumbar spine. Degenerative changes of the spine. Bilateral sacroiliitis. Reviewed, dictated and finalized at location A.
--- NOTE | ~2024-10-09 | XR_ITS ---
3 VIEWS THORACIC SPINE Ordering provider: Beba Cardona MD History: . Sprain/strain . Comparison: None. FINDINGS: VERTEBRAL BODIES: Normal height and alignment. No visible fracture or subluxation. Degenerative powers es of the spine. Postoperative changes in the lower cervical area. AAA DISK SPACES: Narrowing of the disc spaces at multiple levels in the mid upper and lower areas. SOFT TISSUES: Normal. IMPRESSION: No acute osseous abnormality of the thoracic spine. Multilevel degenerative disc disease Reviewed, dictated and finalized at location A.
--- NOTE | ~2024-10-09 | CT_ITS ---
CT cervical spine wo con Ordering provider: Beba Cardona MD History: . Fall . Comparison: None. Technique: CT of the cervical spine was performed without contrast. Sagittal and coronal reformatted images were also obtained and reviewed. Automated exposure control and iterative reconstruction alonso hnique were employed. The dose-length product was 564.24 mGy-cm. FINDINGS: VERTEBRAE: No subluxation or acute fracture. The occipital condyles are intact. Postoperative change s at the level of C5, C6 and C7. Postoperative changes in the skull base posteriorly. Bifid posterior arch of C1. DISC SPACES: Narrowing of the disc C7-T1. Otherwise, normal. Narrowing of the right foramen at the le milagro of C5-C6 PARASPINOUS SOFT TISSUES: Normal. Lymph nodes seen in the left posterior triangle measuring 1.1 cm. IMPRESSION: No acute osseous abnormality cervical spine. Postoperative changes. Reviewed, dictated and finalized at location A.
--- OUTSIDE RECORDS SUMMARY | 2024-10-09 08:35 | XMS_ITS | Data Portability ---
Author Organization [facility] [address] [place] [address] Care Team Providers Care Roadside Mechanic Name Role Phone NEELA SCHULER Primary Care Provider [phone] Assessment Encounter Date Assessment Date Assessment LastModified by Organization Details LastModified Time 09/28/2023 09/28/2023 Obtain old records and she says she is up-to-date on colonoscopy had one a couple years ago needs a mammogram we will set her up with a routine J[facility] [employer]WARDER appointment patient continue current therapy appears to be doing fine hyperlipidemia continue atorvastatin neck fusion with residual pain she takes gabapentin that is to be headaches topiramate sleep apnea CPAP GERD PPI she will follow-up in 4 months immunizations were brought up and she states that she is not going to take anything but flu shots Not available 09/28/2023 22:21:28 11/19/2023 11/19/2023 Empirically Bactrim DS twice daily for 10 days she will let me know how she is doing in the next few days he needs to push fluids as well CAT scan and blood work reviewed [email or web address] Not available 11/21/2023 15:25:50 02/01/2024 02/01/2024 continue to follow up with financial sales consultant could be the etiology of some of her lower back issues diagnosis and assessment and plan discussed told her to start backing off the ibuprofen. That may be contributing to some of the blood pressure readings but also her chronic pain does at follow up with me in 4 months [email or web address] Not available 02/08/2024 18:28:05 05/23/2024 05/23/2024 Nonspecific dermatitis on Medrol Dosepak. she will call if not improved [email or web address] Not available 05/23/2024 21:49:13 06/10/2024 06/10/2024 etiologies not clear almost has a tinea look to it we will try some Selsun blue get dermatology referral. Keep regular follow up [email or web address] Not available 06/10/2024 22:38:38 Plan of Treatment Reminders Order Date Submit Date Provider Last Modified By Organization Details Last Modified Time Details Appointments None recorded. Lab lipid panel, serum 2023 024 [facility], [address], [address], [place], [address], 4 16:27:15 CMP, serum or plasma 2023 024 [facility], [address], [address], [place], [address], 4 11:33:23 CBC w/ auto diff 2023 024 [facility], [address], [address], [place], [address], 4 11:33:23 TSH + free T4, serum 2023 024 [facility], [address], [address], [place], [address], 4 11:33:23 T3, free, serum or plasma 2023 024 [facility], [address], [address], [place], [address], 4 11:33:[address] referral 2024 025 [facility], [address] [place] [address], [address], 5 15:11:19 gynecologis t referral 2023 RAJAN Bagley MD, [address], [address], [place], [address], 09:55:48 Procedures None recorded. Surgeries None recorded. Imaging MAMMO, screening, digital, bilateral 2023 [facility], [address], [place], [address], 16:40:47 bone density 2023 [facility], [address], [address], [place], [address], 11:05:52 Medication Orders Medrol (Ebenezer) 4 mg tablets in a dose pack 2023 [id number], [address] [place], [place], [phone], 17:52:57 Bactrim DS 800 mg-160 mg tablet 2023 [id number], [address] [place], [place], [phone], 09:37:20 gabapentin 300 mg capsule 2023 024 [id number], [address] [place], [place], [phone], 22:18:07 Patient TargetsNo targets recorded. Patient Instructions Encounter Date Encounter Id Patient Instructions Last Modified By Organization Details Last Modified Time 11/19/2023 [id number] A healthy lifestyle: care instructions [email or web address] Not available 11/19/2023 21:48:30 06/10/2024 [id number] A healthy lifestyle: care instructions [email or web address] Not available 06/10/2024 17:10:26 Reason for Referral Dental Tech Referral for Gy necologic examination Referring Physician: Neela Schuler, Internal Medicine, Encounter Date: 09/28/2023 Sugarcane Research Technician Referral for E ruption Referring Physician: Neela Schuler, Internal Medicine, Encounter Date: 06/10/2024 Results Created Date Observation Date Name Description Value Unit Range Abnormal Flag Note LastModifiedBy Organization Detail LastModifiedTime 06/30/19 25 06/30/2024 Urina lysis panel - Urine by Autom ated glucose UA neg Gluco se UA neg OTHER LAB Not Available Not Available 09/16/2024 10:41:48 06/30/19 25 06/30/2024 Urina lysis panel - Urine by Autom ated bilirubin UA poct neg Bilir ubin UA POCT neg OTHER LAB Not Available Not Available 09/16/2024 10:41:48 06/30/19 25 06/30/2024 Urina lysis panel - Urine by Autom ated ketones UA poct neg Keton es UA POCT neg OTHER LAB Not Available Not Available 09/16/2024 10:41:48 06/30/19 25 06/30/2024 Urina lysis panel - Urine by Autom ated specific gravity UA 1.02 Speci fic Gravi ty UA 1.020 OTHER LAB Not Available Not Available 09/16/2024 10:41:48 06/30/19 25 06/30/2024 Urina lysis panel - Urine by Autom ated blood urine poct neg Blood Urine POCT neg OTHER LAB Not Available Not Available 09/16/2024 10:41:48 06/30/19 25 06/30/2024 Urina lysis panel - Urine by Autom ated pH UA 6 pH UA 6.0 OTHER LAB Not Available Not Available 09/16/2024 10:41:48 06/30/19 25 06/30/2024 Urina lysis panel - Urine by Autom ated protein UA neg Prote in UA neg OTHER LAB Not Available Not Available 09/16/2024 10:41:48 06/30/19 25 06/30/2024 Urina lysis panel - Urine by Autom ated urobilinogen UA 0.2 Urobi linog en UA 0.2 OTHER LAB Not Available Not Available 09/16/2024 10:41:48 06/30/19 25 06/30/2024 Urina lysis panel - Urine by Autom ated nitrite UA neg Nitri te UA neg OTHER LAB Not Available Not Available 09/16/2024 10:41:48 06/30/19 25 06/30/2024 Urina lysis panel - Urine by Autom ated WBC UA neg WBC UA neg OTHER LAB Not Available Not Available 09/16/2024 10:41:48 06/30/19 25 06/30/2024 Urina lysis panel - Urine by Autom ated interpretati on and review of laboratory results Normal Not Available Not Available 09/06 10:41:48 10/30/19 24 10/30/2023 MAMMO , scree tania, digit al, bilat eral No observ ation record ed. [facility] [address] [place], [address], 11/10/2023 09:14:57 11/04/19 24 10/30/2023 bone densi ty No observ ation record ed. [facility] [address] [place], [address], 11/10/2023 09:14:57 Result Notes None recorded. Problems Name Problem SNOMED Code Status Onset Date Resolution Date Notes Provider Name and Address Organization Details Recorded Time Obstructive sleep apnea syndrome 25061931 Active 2023 Neela Schuler MD Attn: P[address]son,[address] [place], [address], [place] - [facility] 4 22:20:16 Gastroesophage al reflux disease without esophagitis 868837911 Active 2023 Neela Schuler MD Attn: [address] rich[address]son,[address] [place], [address], [place] [facility] 4 22:20:17 Chronic headache disorder 545298158 Active 2023 Neela Schuler MD Attn: [address] [place], [address], [place] - [facility] 4 22:20:18 Chronic pain syndrome 610005439 Active 2023 Neela Schuler MD Attn: Pacheco richardson,[address] [facility], [place], [address], [facility] 4 22:20:21 Diarrhea 65769606 Active 2023 Paulette Shaw MA null, [place] - [facility] 4 16:12:29 Problem Notes None recorded. Procedures Surgical History None recorded. Imaging Results Imaging Date Name Status LastModified by Organiz ation Details LastModified Time 10/30/2023 MAMMO, screening, digital, bilateral completed [facility] [address] [place], [address], 11/10/2023 09:14:57 10/30/2023 bone density completed [facility] [address] [place], [address], 11/10/2023 09:14:57 Procedure Notes None recorded. Medical Equipment None Reported. Allergies No known drug allergies Medications Name Sig Start Date Stop Date Status Note LastModified by Organization Details LastModified Time celecoxib 200 mg capsule Take 1 capsule twice a day by oral route. 11/18 completed Not Available Not Available Not Available amoxicill in 500 mg capsule TAKE 1 CAPSULE BY MOUTH THREE TIMES DAILY UNTIL ALL TAKEN 09/27 completed Not Available Not Available Not Available atorvasta tin 40 mg tablet TAKE 1 TABLET BY MOUTH EVERY DAY 2024 active Not Available Not Available Not Avai lable gabapenti n 600 mg tablet 09/27 completed pt reports not taking this medicati on any longer Not Available Not Available Not Available triazolam 0.25 mg tablet TAKE 1 TABLET BY MOUTH ONE HOUR BEFORE PROCEDUR E. BRING 1 TABLET TO APPOINTM ENT. DO NOT DRIVE ON THIS MEDICATI ON 09/27 completed pt reports not taking this medicati on any longer Not Available Not Available Not Available cefpodoxi me 200 mg tablet TAKE 1 TABLET BY MOUTH TWICE DAILY FOR 10 DAYS 12/06 completed Not Available Not Available Not Available ibuprofen 800 mg tablet TAKE 1 TABLET BY MOUTH EVERY 4 TO 6 HOURS NEEDED FOR PAIN active Not Available Not Available No t Available fluconazo le 150 mg tablet TAKE 1 TABLET BY MOUTH EVERY 72 HOURS 2023 active Not Available Not Available Not Avai lable valacyclo vir 1 gram tablet 01/31 completed Not Available Not Available Not Available sotalol 80 mg tablet TAKE 1 TABLET BY MOUTH EVERY 12 HOURS active Not Available Not Available No t Available phenazopy ridine 200 mg tablet TAKE 1 TABLET BY MOUTH THREE TIMES DAILY NEEDED FOR PAIN 01/31 completed Not Available Not Available Not Available sumatript an 25 mg tablet TAKE 1 TABLET BY MOUTH DAILY NEEDED FOR MIGRAINE active Not Available Not Available No t Available penicilli n V potassium 500 mg tablet TAKE 1 TABLET BY MOUTH FOUR TIMES DAILY 09/27 completed pt reports not taking this medicati on any longer Not Available Not Available Not Available topiramat e 25 mg tablet TAKE 1 TABLET BY MOUTH TWICE DAILY FOR 15 DAYS THEN TAKE 2 TABLETS BY MOUTH TWICE DAILY FOR 75 DAYS 09/27 completed pt reports not taking this medicati on any longer, taking 50 mg tabs Not Available Not Available Not Available metronida zole 500 mg tablet TAKE 1 TABLET BY MOUTH THREE TIMES DAILY FOR 10 DAYS 12/06 completed Not Available Not Available Not Available omeprazol e 40 mg capsule,d elayed release Take 1 capsule every day by oral route. 2023 active Not Available Not Available Not Avai lable ketorolac 10 mg tablet TAKE 1 TABLET BY MOUTH 4 TIMES DAILY NEEDED FOR PAIN 02/07 completed Not Available Not Available Not Available docusate sodium 100 mg capsule TAKE 1 CAPSULE BY MOUTH TWICE DAILY active Not Available Not Available No t Available gabapenti n 300 mg capsule TAKE 1 CAPSULE BY MOUTH THREE TIMES DAILY active Not Available Not Available No t Available clobetaso l 0.05 % topical ointment active Not Available Not Available Not Available azelastin e 137 mcg (0.1 %) nasal spray USE 2 SPRAYS IN EACH NOSTRIL 1 TO 2 TIMES DAILY FOR CONGESTI ON OR SNEEZING active Not Available Not Available No t Available cefuroxim e axetil 500 mg tablet Take 1 tablet every 12 hours by oral route for 14 days. active Not Available Not Available No t Available methylpre dnisolone 4 mg tablets in a dose pack Take 1 dose pk by oral route as directed . active Not Available Not Available No t Available ondansetr on 4 mg disintegr ating tablet DISSOLVE 1 TABLET IN MOUTH EVERY 8 HOURS NEEDED 01/31 completed Not Available Not Available Not Available doxycycli ne hyclate 100 mg tablet TAKE 1 TABLET BY MOUTH TWICE DAILY FOR 7 DAYS active Not Available Not Available No t Available metoclopr amide 10 mg tablet TAKE 1 TABLET BY MOUTH NEEDED FOR MIGRAINE 01/31 completed Not Available Not Available Not Available amoxicill in 875 mg-potass ium clavulana te 125 mg tablet TAKE 1 TABLET BY MOUTH TWICE DAILY 12/06 completed Not Available Not Available Not Available amoxicill in 500 mg-potass ium clavulana te 125 mg tablet TAKE 1 TABLET BY MOUTH TWICE DAILY FOR 5 DAYS 12/06 completed Not Available Not Available Not Available oxycodone 5 mg tablet TAKE 1 TABLET BY MOUTH EVERY 4 HOURS NEEDED FOR PAIN active Not Available Not Available No t Available Bactrim DS 800 mg-160 mg tablet Take 1 tablet twice a day by oral route for 10 days. 12/06 completed Not Available Not Available Not Available cyclobenz aprine 5 mg tablet 09/27 completed pt reports not taking this medicati on any longer Not Available Not Available Not Available topiramat e 50 mg tablet TAKE 1 TABLET BY MOUTH TWICE DAILY 01/31 completed Not Available Not Available Not Available trospium 20 mg tablet TAKE 1 TABLET BY MOUTH TWICE DAILY active Not Available Not Available No t Available Probiotic active Not Available Not Shanae ilable Not Available Linzess 72 mcg capsule Take 1 capsule every day before meal 01/31 completed Not Available Not Available Not Available Ubrelvy 100 mg tablet TAKE 1 TABLET BY MOUTH 1 TIME FOR HEADACHE . MAY REPEAT DOSE 1 TIME AFTER 2 HOURS NEEDED. DO NOT EXCEED 2 TABLETS / 24 HOURS active Not Available Not Available No t Available Paxlovid 300 mg (150 mg x 2)-100 mg tablets in a dose pack TAKE 2 NIRMATRE LVIR TABLETS AND 1 RITONAVI R TABLET TOGETHER BY MOUTH TWICE DAILY FOR 5 DAYS DIRECTED 09/27 completed Not Available Not Available Not Available Vitals Date Recorded Body weight Body mass index (BMI) Body height Provider Name and Address Organization Details Last Updated DateTime 09/28/2023 58458.48 g 31.6 kg/m2 157.48 cm JANENE Ley [facility] 09/28/2023 15:53:34 Date Recorded Body height Body mass index (BMI) Body weight Oxygen saturation Oxygen saturation in Arterial blood by Pulse oximetry Heart rate Systolic blood pressure Diastolic blood pressure Provider Name and Address Organization Details Last Updated DateTime 4 157.48 cm 32.2 kg/m2 27891.6 2 g 97 % 97 % 59 /min 122 mm[Hg] 76 mm[Hg] Shirley Ashton MA [facility] 4 15:19:07 Date Recorded Body height Body mass index (BMI) Body weight Heart rate Oxygen saturation Oxygen saturation in Arterial blood by Pulse oximetry Systolic blood pressure Diastolic blood pressure Provider Name and Address Organization Details Last Updated DateTime 4 157.48 cm 33.3 kg/m2 69868.2 4 g 51 /min 98 % 98 % 130 mm[Hg] 98 mm[Hg] Harmony Hoffman MA [facility] 4 11:11:37 Date Recorded Body height Body mass index (BMI) Body weight Heart rate Oxygen saturation Oxygen saturation in Arterial blood by Pulse oximetry Systolic blood pressure Diastolic blood pressure Provider Name and Address Organization Details Last Updated DateTime 4 157.48 cm 33.7 kg/m2 70678.7 9 g 85 /min 97 % 97 % 130 mm[Hg] 68 mm[Hg] Kimberly Watts MA [facility] 4 16:48:43 Date Recorded Body height Body mass index (BMI) Body weight Heart rate Oxygen saturation Oxygen saturation in Arterial blood by Pulse oximetry Systolic blood pressure Diastolic blood pressure Provider Name and Address Organization Details Last Updated DateTime 5 157.48 cm 34.2 kg/m2 00730.4 9 g 54 /min 98 % 98 % 130 mm[Hg] 66 mm[Hg] Kimberly Watts MA [facility] 5 14:02:45 Social History Question Answer Notes LastModified by Organizat ion Details LastModified Time Tobacco Smoking Status Never Smoker JANENE Ley null, [facility] 09/28/2023 16:08:57 Do You Have An Advance Directive? No Information not available 02/01/2024 What Is Your Level Of Alcohol Consumption? None Information not available 11/19/2023 Are You Blind Or Do You Have Difficulty Seeing? No Slight Vision Change Information not available 11/19/2023 What Is Your Level Of Caffeine Consumption? Occasional Information not available 02/01/2024 In The 14 Days Before Symptom Onset, Have You Had Close Contact With A Laboratory-confir med COVID-19 While That Case Was Ill? No Information not available 02/01/2024 In The 14 Days Before Symptom Onset, Have You Had Close Contact With A Person Who Is Under Investigation For COVID-19 While That Person Was Ill? No Information not available 02/01/2024 Have You Been To An Area Known To Be High Risk For COVID-19? No Information not available 02/01/2024 Are You Currently Employed? Yes Information not available 02/01/2024 Are You Deaf Or Do You Have Serious Difficulty Hearing? Yes Hearing Aids, Doesn't Wear Them Information not available 11/19/2023 What Type Of Diet Are You Following? REGULAR Information not available 02/01/2024 Are There Any Guns Present In Your Home? No Information not available 02/01/2024 What Was The Date Of Your Most Recent Tobacco Screening? 06/10/2024 Information not available 06/10/2024 What Is Your Relationship Status? Information not available 11/19/2023 Do You Use Your Seat Belt Or Car Seat Routinely? Yes Information not available 02/01/2024 Do You Have Smoke And Carbon Monoxide Detectors In Your Home? Yes Information not available 02/01/2024 Do You Feel Stressed (tense, Restless, Nervous, Or Anxious, Or Unable To Sleep At Night)? GE1134-4 Information not available 02/01/2024 Do You Use Any Illicit Or Recreational Drugs? No Information not available 02/01/2024 Do You Use Sunscreen Routinely? Yes Information not available 02/01/2024 Has Tobacco Cessation Counseling Been Provided? No Information not available 05/23/2024 Do You Or Have You Ever Used Any Other Forms Of Tobacco Or Nicotine? No Information not available 05/23/2024 Sex: Female Functional Status Question Answer Note LastModified by Organizat ion Details LastModified Time Are you able to care for yourself? Yes Information not available 11/19/2023 What is your exercise level? Occasional Information not available 02/01/2024 Mental Status None recorded. Family History Relationship Description Onset Age of this Age Resolved Age Notes LastModified by Organization Details LastModified Time Father Blood coagulation disorder [email or web address] Not available 09/07 16:09:03 Father Coronary arterioscler osis [email or web address] Not available 09/07 16:09:10 Father Diabetes mellitus [email or web address] Not available 09/07 16:09:16 Father Heart disease [email or web address] Not available 09/07 16:09:49 Father Hypertensive disorder [email or web address] Not available 09/07 16:09:58 Father Hypercholest erolemia [email or web address] Not available 09/07 16:10:04 Mother Migraine [email or web address] Not availa ble 09/28/2023 16:10:12 Medical History Condition Response Coronary Artery Disease N Atrial Fibrillation Y High Blood Pressure Y Kidney or Bladder Problems N Thyroid Problems N Depression N COPD N Blood Clots N GI Problems N Skin Problems Y Anemia N Heart Attack ([place]) N Anxiety Disorder Y Diabetes N Muscle, Joint, or Bone Problems Y Seizures/Epilepsy N Acid Reflux (GERD) Y Cancer N Stroke N Allergies N High Cholesterol Y Hepatitis N Headaches Y Heart Failure N Osteoporosis N Gynecological HistoryNo gynecological history recorded. Obstetrics History GPAL:G 0 P 0 0 0 0 Immunizations Vaccine Type Date Status Note Provider Nam e and Address Organization Details Recorded Time zoster recombinant 04/13/2020 completed [place], [place] - [facility] 11/19/2023 16:14:44 COVID-19, mRNA, LNP-S, PF, 30 mcg/0.3 mL dose 08/05/2020 completed [place], [place] - [facility] 11/19/2023 16:14:44 COVID-19, mRNA, LNP-S, PF, 30 mcg/0.3 mL dose 08/26/2020 completed [place]SE [place], [place] - [facility] 11/19/2023 16:14:44 Tdap 10/18/2020 completed [place], [place] - [facility] 11/19/2023 16:14:44 Past Encounters Encounter ID Performer Location Encounter Start Date Encounter Closed Date Diagnosis/Indication Diagnosis SNOMED-CT Code Diagnosis ICD10 Code Diagnosis Note [id number] Neela Schuler MD [facility] [place] [address] [place] [address] 09/28/2023 15:09:24 09/28/2023 17:06:22 Atrial fibrillation 51104680 I48.91 Hyperlipidemia 66102467 E78.5 Screening mammography 24 975828 Z12.31 Postmenopausal state 764 94888 Z78.0 Gynecologi c examination 33740492 Z01.419 Renewal of prescription 297916101 Z76.0 Chronic pain syndrome 37 4714552 G89.4 Chronic he adache disorder 047964751 G44.89 Gastroesop hageal reflux disease without esophagitis 054728371 K21.9 Obstructiv e sleep apnea syndrome 22525052 G47.33 [id number] Neela Schuler MD [facility] [place] [address] [place] [address] 11/19/2023 14:34:10 11/19/2023 16:30:25 Diarrhea 22456201 R19.7 Obesity 356039595 E66.8 [id number] Neela Schuler MD [facility] [place] [address] [place] [address] 02/01/2024 10:43:01 02/01/2024 11:49:56 Overweight 368686074 E66.3 Gastroesop hageal reflux disease without esophagitis 331259507 K21.9 Chronic pain syndrome 37 8639923 G89.4 stemming from neck surgery Chronic he adache disorder 402880272 G44.89 [id number] Neela Schuler MD [facility] [place] [address] [place] [address] 05/23/2024 16:21:55 05/23/2024 17:40:46 Eruption 416611368 R21 [id number] Nelea Schuler MD [facility] [address] [place] [address] 06/10/2024 13:33:31 06/10/2024 15:10:32 Body mass index 30+ - obesity 958502281 Z68.34 Obesity 948138640 E66.9 Eruption 975547316 R21 Health Concerns Section Related Observation LastModified by Organization Detai ls LastModified Time None Recorded Concern Status LastModified by Organization Details LastModified Time None Recorded Advance Directives Directive N: Payers Encounter Date Sequence Insurance Name Policy Number Policy Sweet Covered Member ID Sweet Member ID Guarantor Name 09/28/2023 1 [employer] (POS) [id number] Kerry Iesha [id number] Kerry A Iesha 11/19/2023 1 [employer] (POS) [id number] Kerry Iesha [id number] Kerry A Iesha 02/01/2024 1 [employer] (POS) [id number] Kerry Iesha [id number] Kerry A Iesha 05/23/2024 1 [employer] (POS) [id number] Kerry Iesha [id number] Kerry A Iesha 06/10/2024 1 [employer] (POS) [id number] Kerry Iesha [id number] Kerry A Iesha Notes Date Note Type Note Provider Name and Address Organization Details Recorded Time 09/28/2023 text/html 53-year-old with a history of atrial fibrillation hyperlipidemia C3 C7 cervical fusion GERD chronic headaches sleep apnea history of Chiari malformation residual pain from her neck has been doing reasonably well except for her chronic medical problem she is maintained on atorvastatin 40 mg daily gabapentin 300 mg Reglan as needed from vomiting and nausea from migraine omeprazole 40 mg daily sotalol 80 twice daily topiramate 50 twice daily probiotic and Celebrex 200 twice daily states she is also been taking ibuprofen daily Neela Schuler MD Attn: Accounting[address] [place], [address], [facility] 09/28/2023 22:21:45 11/19/2023 text/html Diarrhea urgent care with getting better with the emergency room CAT scan nonspecific possible enteritis she was given Flagyl and another antibiotic which gave her rash she is not sure which 1 it was continues to have some diarrhea no blood in her stool no mucus in her stools no clear-cut abdominal pain Neela Schuler MD Attn: Accounting, [address] [facility], [place], [address], [facility] 11/21/2023 15:26:22 02/01/2024 text/html financial sales consultant is working w ith her there is a mass in her uterus she had her upper and lower endoscopies done tolerating those fine. Dyslipidemia taking her atorvastatin trying to follow low-fat diet her rhinitis has been fairly stable current medical regimen. Pain has been controlled with gabapentin ibuprofen she is taking proton pump inhibitor well and sotalol Neela Schuler MD Attn: Accounting, [address] [facility], [place], [address], [facility] 02/08/2024 18:28:27 05/23/2024 text/html itchy rash back of her head left antecubital fossa left supra clavicular space no new plans pets or detergents has not really tried to take anything for it Neela Schuler MD Attn: Accounting, [address] [place], [address], [facility] [facility] 05/23/2024 21:49:48 06/10/2024 text/html rash back after the Medrol Dosepak scalp back of the neck top of left shoulder Neela Schuler MD Attn: Accounting, [address] [place], [id number], [place] - [facility] 06/10/2024 22:38:55 OBGyn Episode No OBEpisode recorded.
--- OUTSIDE RECORDS SUMMARY | 2024-10-09 08:35 | XMS_ITS | Encounter Summary ---
Author Organization [facility] Healthcare Address [address] [place] [address] Care Team Providers Care Collateral Specialist Name Role Phone José Schuler MD Unavailable [phone] Shukri Goodman MD Primary Care Provider + Reason for Visit * Reason Onset Date Comments Pre-Surgical Call 05/06/2022 Encounter Details Date Type Department Care Team (Late st Contact Info) Description 05/06/2022 Telephone [facility] [address] [facility] [address] [place] [address] Ariana Sultana MD [address] [facility] [address] [place] [address] Pre-Surgical Call Social History Tobacco Use Types Packs/Day Years Used Date Smoking Tobacco: Never Smokeless Tobacco: Never Alcohol Use Standard Drinks/Week Comments Not Currently 0 (1 standard drink = 0.6 oz pur e alcohol) AUDIT-C Answer Date Recorded Q1: How often do you have a drink containing alcohol? Never 04/28/2022 Q2: How many drinks containi ng alcohol do you have on a typical day when you are drinking? Patient does not drink Q3: How often do you have si x or more drinks on one occasion? Never 04/28/2022 Comments No Sex and Gender Information Value Date Recorded Sex Assigned at Not on file Legal Sex Female 7:00 AM [employer] DIRECT[employer] Gender Identity Female 03/12/2022 12:16 PM CDT Sexual Orientation Not on file documented as of this encounter Plan of Treatment Not on file documented as of this encounter Goals Goal Patient Goal Type Associated Problems Recent Progress Patient-Stated? Author CCM Chronic Pain Care Plan Chronic Care Management No change(06/03 9:15 AM BUILDINGS AND [employer] DIRECTOR) No Jennifer Collins, RN Note: Problem: Chronic Pain Goals: 1. Minimize further functional decline 2. Maximize quality of life 3. Control pain Strategies: - Activity/exercise program recommendation - Conservative stepwise pain medicine strategy with multi-disciplinary approach - Recommend healthy lifestyle strategies and compensatory methods as needed documented as of this encounter Visit Diagnoses Not on filedocumented in this encounter Care Teams Collateral Specialist Relationship Specialty Start Date End Date Shukri Goodman MD [address] [place] [address] PCP - General Internal Medicine 03/06/22 José Schuler MD 12/08/18 documented as of this encounter
--- OUTSIDE RECORDS SUMMARY | 2024-10-09 08:35 | XMS_ITS | CONTINUITY OF CARE DOCUMENT ---
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 Pilar Nation MD Dizziness active Pilar Nation MD Palpitations active Pilar Nation MD Sinus bradycardia active Pilar Nation MD Shortness of breath active Kunal Carey ENCOUNTERS Date Type Provider Location Encounter Diag nosis - In-person encounter Office Visit Kunal Álvarez MD [place] [facility] Shortness of breath - In-person encounter Office Visit Kunal Álvarez MD [place] [facility] CHEST PAIN - In-person encounter Office Visit Pilar Nation MD [facility] Sinus bradycardia - In-person encounter Office Visit Pilar Nation MD [place] [facility] DizzinessPalpitations - In-person encounter Office Visit Pilar Nation MD [place] [facility] - In-person encounter Office Visit Pilar Nation MD [place] [facility] CHEST PAIN - In-person encounter Office Visit Pilar Nation MD [place] [facility] CHEST PAINCoagulation defect Von Willibrand factor deficiency - In-person encounter Office Visit Pilar Nation MD [place] [facility] GERD - In-person encounter Office Visit Pilar Nation MD [place] [facility] - In-person encounter Office Visit Pilar Nation MD [place] [facility] CHEST PAINABNORMAL ELECTROCARDIOGRAM LBBB 02/13HYPERTENSION, ESSENTIAL VITAL SIGNS Date Observation Value Provider Body Mass Index (Ratio) 34.20 kg/m2 Vale Álvarez MD blood pressure, cuff size large Cr clover Irwin blood pressure, diastolic 70 mm[Hg] Cr clover Irwin blood pressure, systolic 130 mm[Hg] Cry chari Irwin oxygen saturation, oximetry 98 % Rina Irwin respiratory rate E&M 17 /min Rina Irwin pulse rate 69 /min Rina Gregory jim weight E&M 187 [lb_av] Rina fernandez height E&M 62 [in_i] Rina fernandez Body Mass Index (Ratio) 33.65 kg/m2 Vale Álvarez MD blood pressure, diastolic 68 mm[Hg] Ki billy Aviles blood pressure, systolic 122 mm[Hg] Chirag caruso Aviles oxygen saturation, oximetry 98 % [facility] E&M 16 /min Kolby Aviles pulse rate 60 /min [facility] 184 [lb_av] Berwick Aviles height E&M 62 [in_i] Kolby Aviles blood pressure, diastolic 70 mm[Hg] Ca jyotsna Long blood pressure, systolic 120 mm[Hg] Ludwig vegas Mercedes Body Mass Index (Ratio) 31.27 kg/m2 Andrae Nation MD blood pressure, diastolic 88 mm[Hg] Ki billy Energy blood pressure, systolic 138 mm[Hg] Chirag caruso [employer] oxygen saturation, oximetry 99 % [facility] rate E&M 16 /min [facility] pulse rate 62 /min [facility] weight E&M 171 [lb_av] [facility] blood pressure, resting No Kill n [employer] height E&M 62 [in_i] [facility] blood pressure, diastolic 70 mm[Hg] Lisa Mercado Elena blood pressure, systolic 120 mm[Hg] Radha Steinenson pulse rate 67 /min Alyse Soliman teja oxygen saturation, oximetry 95 % Alyse Elena respiratory rate E&M 18 /min Sonia Elena Body Mass Index (Ratio) 31.71 kg/m2 Odilia Elena weight E&M 173.4 [lb_av] Alyse ellis blood pressure, diastolic 77 mm[Hg] Me melgar Stuart blood pressure, systolic 142 mm[Hg] Sushila renaea Stuart pulse rate 68 /min Lilly Stuart oxygen saturation, oximetry 97 % Lilly Stuart respiratory rate E&M 14 /min Lilly Stuart Body Mass Index (Ratio) 30.36 kg/m2 Lynnette ssa Stuart weight E&M 166 [lb_av] Lilly Stuart Body Mass Index (Ratio) 33.10 kg/m2 Anea efrain Brown blood pressure, diastolic 78 mm[Hg] An eatris Brown blood pressure, systolic 122 mm[Hg] Ane atris Brown pulse rate 87 /min Aneatris Juan oxygen saturation, oximetry 98 % Aneatris Juan respiratory rate E&M 16 /min Aneatri s Juan weight E&M 181 [lb_av] Aneatris Juan Body Mass Index (Ratio) 32.74 kg/m2 Aneyonatan zuniga [facility] blood pressure, diastolic 80 mm[Hg] An rosasris [facility] blood pressure, systolic 134 mm[Hg] Ane atris [facility] pulse rate 58 /min Aneatris [facility] oxygen saturation, oximetry 98 % Aneatris [facility] respiratory rate E&M 17 /min Aneatri s [facility] weight E&M 179 [lb_av] Aneatris [facility] Body Mass Index (Ratio) 33.10 kg/m2 Nicholas zuniga [facility] blood pressure, diastolic 80 mm[Hg] An levy [facility] blood pressure, systolic 139 mm[Hg] Ane haaj [facility] pulse rate 64 /min Aneatris [facility] oxygen saturation, oximetry 98 % Marenatrloki [facility] respiratory rate E&M 17 /min Aneatri s [facility] weight E&M 181 [lb_av] Aneatris [facility] height E&M 62 [in_i] Kj [facility] blood pressure, diastolic 73 mm[Hg] Juan Morillo RN blood pressure, systolic 120 mm[Hg] Oleksandr Morillo RN pulse rate 61 /min Oleksandr Morillo RN oxygen saturation, oximetry 100 % Oleksandr Morillo RN respiratory rate E&M 18 /min Oleksandr blanc RN weight E&M 167 [lb_av] Oleksandr Morillo RN blood pressure, diastolic, supine 76 mm[H g] Heidy Snowden blood pressure, systolic, supine E&M 120 mm[Hg] Heidy Snowden pulse rate 68 /min Heidy Snowden oxygen saturation, oximetry 98 % Heidy Snowden respiratory rate E&M 20 /min Heidy bruner weight E&M 172 [lb_av] Heidy Isi ALLERGIES No Known Drug Allergies RESULTS Date Observation Value Provider Reference Range Interpretation Location international normalized ratio (INR) 1.0 Kolby Aviles Normal prothrombin time (patient) 11.8 s Kolby Aviles free thyroxine index 6.7 ??g/dL [facility] 4.4 - 11.4 triiodothyronine uptake 1.1 TBI [facility] 0.8 - 1.3 thyroxine, serum, total 7.4 ??G/DL [facility] 4.5 - 11.7 thyroid stimulating hormone, serum 1.160 ??IU/ML [facility] 0.270 - 4.200 magnesium, serum 1.9 mg/dL [facility] 1.6 - 2.6 very low density lipoproteins 35.0 mg/dL [facility] 5.0 - 40.0 LDL/HDL (low-density lipoprotein/high-den sity lipoprotein) ratio 1.8 RATIO [facility] - lipoprotein, beta, serum, point, quantitative, calculated 107.0 (?) [facility] 0.0 - 100.0 High HDL cholesterol, serum 58.0 mg/dL [facility] 45.0 - 65.0 cholesterol, serum 200.0 mg/dL [facility] 0.0 - 200.0 triglyceride, serum, fasting 175.0 mg/dL [facility] 0.0 - 150.0 High anion gap, serum 12.8 [facility] - albumin/globulin ratio, serum 1.7 g/dL [facility] 1.1 - 2.5 globulin, serum 2.5 [facility] 2.3 - 3.8 urea nitrogen/creatinine ratio, serum 21.1 [facility] - Estimated Glomerular Filtration Rate (calc) 71.0 (?) [facility] 59.0 - chloride, serum 100.2 mmol/L [facility] 98.0 - 107.0 potassium, serum 4.0 mmol/L [facility] 3.5 - 5.1 sodium, serum 142.0 mmol/L [facility] 136.0 - 145.0 creatinine, serum 0.9 mg/dL [facility] 0.5 - 1.0 carbon dioxide, venous blood 29.0 mmol/L [facility] 22.0 - 29.0 albumin, serum 4.3 g/dL [facility] 3.5 - 5.2 calcium, serum 9.9 mg/dL [facility] 8.6 - 10.2 aspartate aminotransferase (SGOT), serum 21.0 1/L [facility] 0.0 - 32.0 alkaline phosphatase, serum 118.0 1/L [facility] 40.0 - 130.0 alanine aminotransferase (SGPT), serum 20.0 1/L [facility] 0.0 - 33.0 protein, total, serum 6.8 g/dL [facility] 6.6 - 8.7 bilirubin, serum, total 0.2 mg/dL [facility] 0.0 - 1.2 urea nitrogen, blood 19.0 mg/[facility] 6.0 - 20.0 blood glucose, random 82.0 mg/dL [facility] 74.0 - 99.0 red blood cell distribution width, size density 43.1 fL [facility] - immature granulocytes, percentage of total cells, blood 0.1 % [facility] - nucleated red blood cells as percent of blood leukocytes 0.0 % [facility] - red blood cell (erythrocyte) count, per high power field 0.0 10*3/UL [facility] - eosinophils as percent of blood leukocytes 2.6 % [facility] - neutrophils as percent of blood leukocytes 71.7 % [facility] - Absolute Neutrophils 6.6 CELLS/UL [facility] 1.5 - 7.8 basophils as percent of blood leukocytes 0.6 % [facility] - Absolute Basophils 0.1 CELLS/UL [facility] 0.0 - 0.2 monocytes as percent of blood leukocytes 6.5 % [facility] - Absolute Monocytes 0.6 CELLS/UL [facility] 0.2 - 1.0 lymphocytes as percent of blood leukocytes 18.5 % [facility] - Absolute Lymphocytes 1.7 CELLS/UL [facility] 0.9 - 3.9 mean platelet volume 8.7 (?) [facility] - platelet count 473.0 THOUSAND/ UL [facility] 100.0 - 400.0 High mean corpuscular hemoglobin concentration, RBC 32.6 G/DL [facility] 31.0 - 38.0 mean corpuscular hemoglobin, RBC 29.1 pg [facility] 25.0 - 35.0 mean corpuscular volume, RBC 89.3 fL [facility] 75.0 - 100.0 hematocrit, blood 43.2 % [facility] 35.0 - 55.0 hemoglobin, blood 14.1 g/dL [facility] 11.5 - 16.5 erythrocyte count, whole blood 4.8 MILLION/U L [facility] 3.5 - 5.5 hemoglobin A1C, blood, as % of total hemoglobin 5.1 % [facility] 4.0 - 5.6 very low density lipoproteins 29.4 mg/dL [facility] 5.0 - 40.0 LDL/HDL (low-density lipoprotein/high-den sity lipoprotein) ratio 2.1 RATIO [facility] - lipoprotein, beta, serum, point, quantitative, calculated 119.6 (?) [facility] 0.0 - 100.0 High HDL cholesterol, serum 57.0 mg/dL [facility] 45.0 - 65.0 cholesterol, serum 206.0 mg/dL [facility] 0.0 - 200.0 High triglyceride, serum, fasting 147.0 mg/dL [facility] 0.0 - 150.0 anion gap, serum 12.1 [facility] - albumin/globulin ratio, serum 3.2 g/dL [facility] 1.1 - 2.5 High globulin, serum 2.7 [facility] 2.3 - 3.8 urea nitrogen/creatinine ratio, serum 23.8 [facility] - Estimated Glomerular Filtration Rate (calc) 81.7 (?) [facility] 59.0 - chloride, serum 101.9 mmol/L [facility] 98.0 - 107.0 potassium, serum 4.0 mmol/L [facility] 3.5 - 5.1 sodium, serum 144.0 mmol/L [facility] 136.0 - 145.0 creatinine, serum 0.8 mg/dL [facility] 0.5 - 1.0 carbon dioxide, venous blood 30.0 mmol/L [facility] 22.0 - 29.0 High albumin, serum 4.9 g/dL [facility] 3.5 - 5.2 calcium, serum 9.9 mg/dL [facility] 8.6 - 10.2 aspartate aminotransferase (SGOT), serum 37.0 1/L [facility] 0.0 - 32.0 High alkaline phosphatase, serum 117.0 1/L [facility] 40.0 - 130.0 alanine aminotransferase (SGPT), serum 41.0 1/L [facility] 0.0 - 33.0 High protein, total, serum 7.6 g/dL [facility] 6.6 - 8.7 bilirubin, serum, total 0.4 mg/dL [facility] 0.0 - 1.2 urea nitrogen, blood 19.0 mg/dL [facility] 6.0 - 20.0 blood glucose, random 63.0 mg/dL [facility] 74.0 - 99.0 Low red blood cell distribution width, size density 43.1 fL [facility] - [facility] granulocytes, percentage of total cells, blood 0.3 % [facility] - nucleated red blood cells as percent of blood leukocytes 0.0 % [facility] - red blood cell (erythrocyte) count, per high power field 0.0 10*3/UL [facility] - eosinophils as percent of blood leukocytes 4.7 % [facility] - neutrophils as percent of blood leukocytes 65.1 % [facility] - Absolute Neutrophils 4.0 CELLS/UL [facility] 1.5 - 7.8 basophils as percent of blood leukocytes 0.8 % [facility] - Absolute Basophils 0.1 CELLS/UL [facility] 0.0 - 0.2 monocytes as percent of blood leukocytes 7.8 % [facility] - Absolute Monocytes 0.5 CELLS/UL [facility] 0.2 - 1.0 lymphocytes as percent of blood leukocytes 21.3 % [facility] - Absolute Lymphocytes 1.3 CELLS/UL [facility] 0.9 - 3.9 mean platelet volume 8.4 (?) [facility] - platelet count 435.0 THOUSAND/ UL [facility] 100.0 - 400.0 High mean corpuscular hemoglobin concentration, RBC 32.1 G/DL [facility] 31.0 - 38.0 mean corpuscular hemoglobin, RBC 28.6 pg [facility] 25.0 - 35.0 mean corpuscular volume, RBC 89.0 fL [facility] 75.0 - 100.0 hematocrit, blood 43.9 % [facility] 35.0 - 55.0 hemoglobin, blood 14.1 g/dL [facility] 11.5 - 16.5 erythrocyte count, whole blood 4.9 MILLION/U L [facility] 3.5 - 5.5 hemoglobin A1C, blood, as % of total hemoglobin 5.0 % [facility] 4.0 - 6.0 HISTORY OF MEDICATION USE Medication Status Instructions Dates Provider Indications Com ments ALBUTEROL SULFATE HFA 108 (90 BASE) MCG/ACT INHALATION AEROSOL SOLUTION active inhale 2 puffs daily as needed Kolby Aviles LYRICA 75 MG ORAL CAPSULE active take 1 caps twice daily Kolby Aviles VITAMIN D 2000 UNIT ORAL CAPSULE completed take one tablet daily - Kolby Aviles MAGNESIUM 200 MG ORAL TABLET completed take one tablet daily - Kolby Aviles ASPIRIN 325 MG ORAL TABLET completed ONE TAB. DAILY - Kolby Aviles LIPITOR 10 MG ORAL TABLET completed ONE TAB. DAILY AT BEDTIME - Kolby Aviles IBUPROFEN CAPSULE completed take as directed - Kj Martinez IMITREX TABLET completed take as directed - Kj Martinez WELLBUTRIN TABLET completed 150mg twice daily - Kj Martinez NEXIUM 20 MG ORAL CAPSULE DELAYED RELEASE completed ONE TAB. DAILY - Kj Martinez METOPROLOL TARTRATE TABS completed 25MG ONE TAB TWICE DAILY - Kj Martinez SOCIAL HISTORY Date Observation Value Provider social history E&M Marital Statu s: L jose with family/friends E thnicity: Aurelio Mccallum has Autism Smoking History: P atvish has never smoked. Kunal Álvarez MD social history reviewed E&M revi ewed - no changes required Kunal Álvarez MD smoking status Never smoker Rina [facility] social history E&M Marital Statu s: L jose with family/friends E thnicity: Aurelio Mccallum has Autism Smoking History: P atient has never smoked. Kunal Álvarez MD social history reviewed E&M revi ewed - no changes required Kunal Álvarez MD number of grandchildren Kunal Aviles physical exercise, f requency, days per week no Kolby Aviles alcohol use, average drinks per day social basis only Kolby Aviles caffeine use, averag e drinks per day yes Kolby Aviles drug use none Kolby Aviles smoking status Never smoker Kolby amin smoking status Never smoker Jessenia keyes social history reviewed E&M revi ewed - no changes required Pilar Nation MD number of grandchildren Pilar Nation MD Sherrell rahman [employer] physical exercise, f requency, days per week no Kolby Leaam alcohol use, average drinks per day social basis only Kolby Aviles caffeine use, averag e drinks per day yes Kolby Aviles drug use none Kolby Aviles smoking status Never smoker Kolby amin social history reviewed E&M revi ewed - no changes required Pilar Nation MD physical exercise, f requency, days per week no Alyse Elena alcohol use, average drinks per day social basis only Alyse Elena caffeine use, averag e drinks per day yes Alyse Elena drug use none Alyse Soliman teja smoking status Never smoker Alyse Fitzgerald social history reviewed E&M revi ewed - no changes required Pilar Nation MD physical exercise, f requency, days per week no Lilly Stuart alcohol use, average drinks per day social basis only Lilly Stuart caffeine use, averag e drinks per day yes Lilly Stuart drug use none Lilly Stuart smoking status Never smoker Lilly Guera silva social history reviewed E&M revi ewed - no changes required Kj Martinez social history E&M Marital Statu s: L jose with family/friends E thnicity: Aurelio Mccallum has Autism Pilar Nation MD social history reviewed E&M revi ewed - no changes required Pilar Nation MD social history reviewed E&M revi ewed - no changes required Pilar Nation MD smoking status Never smoker Kj silva social history E&M Marital Statu s: L jose with family/friends E thnicity: Oleksandr Morillo RN social history reviewed E&M reviewed Oleksandr Morillo RN physical exercise, f requency, days per week no [facility] caffeine use, averag e drinks per day yes [facility] alcohol use, average drinks per day social basis only [facility] smoking status Non-smoker [facility] social history E&M L jose with family/friends E thnicity: Pilar Nation MD drug use none Pilar Nation MD social history reviewed E&M reviewed Pilar Nation MD physical exercise, f requency, days per week no [facility] caffeine use, averag e drinks per day yes [facility] alcohol use, average drinks per day none [facility] smoking status Non-smoker [facility] FUNCTIONAL STATUS Date Observation Value Provider periodic limb movement index absent (0) Jessenia Long MENTAL STATUS Date Observation Value Provider assessment of judgme nt and insight E&M Alert and oriented to time, place and person. Mood and affect are normal. Oleksandr Morillo RN assessment of judgme nt and insight E&M Alert and oriented to time, place and person. Mood and affect are normal. Pilar Nation MD FAMILY HISTORY Family Member Condition Mother Family History Unkno wn Father Family History of Co ronary Artery Disease: Father Family History of Hy pertension: INSURANCE PROVIDERS Payer name Policy type / Coverage type [place] red republican ID [employer] [facility] Other [id number] ADVANCE DIRECTIVES Name Date DISCUSSED - NO DECISION MADE TREATMENT PLAN Date Name Performer Cardiology:Resolved. EKG reviewed today showed sinus with a rte of 62. Kunal Álvarez MD Cardiology Kunal Carey Cardiology:Continues to experience shortness of breath on exertion with some relief from inhalers. We await the PFT results. Encouraged the patient to use inhalers for symptoms. Kunal Álvarez MD Cardiology:Blood pressure contro l is satisfactory. Kunal Álvarez MD Cardiology:Chest laurel n persists. The recent cath was reviewed and showed normal epicardial coronary arteries. The patient has been reassured. She did not respond to Ranexa and it has been discontinued. I did offer her sublingual nitro to use as needed which she declined. Kunal Álvarez MD Cardiology Kunal Carey Cardiology:Patient s ymptomatic with palpitations, will arrange Telesentry monitor. Kunal Álvarez MD Cardiology:Blood pre ssure control is satisfactory. Kunal Álvarez MD Cardiology:Effort re lated chest pain with shortness of breath in a patient with risk factors for CAD and a normal stress test. Will arrange cardiac cath. T he risks and benefits of the procedure, including but not limited the risk of heart attack, , stroke, bleeding, kidney failure, and loss of limb as well as the alternative of continued medical therapy, stress testing or bypass surgery were discussed with the patient and any present family members and the patient wishes to proceed with cardiac cath and stenting. The patient and family had opportunity to discuss this with us. Written material including informed consent was given out. Kunal Álvarez MD Cardiology Pilar Nation MD Cardiology Pilar Nation MD Cardiology Pilar Nation MD Cardiology:Orders: S TR - Routine (CPT-24054) M obile Cardiac Tele (CPT-51268) Pilar Nation MD Cardiology Pilar Nation MD Cardiology Pilar Nation MD Cardiology Pilar Nation MD Cardiology Pilar Nation MD Cardiology Pilar Nation MD Cardiology Pilar Nation MD Cardiology Pilar Nation MD Cardiology Pilar Nation MD surgical clearance: H er updated medication list for this problem includes: Metoprolol Tartrate Tabs (Metoprolol tartrate tabs) ..... 25mg one tab twice daily BP today: 120/73 Prior BP: 120/76 (02/21/2008) C ardiac Cath: No significant CAD. LV EF of 55% with mild anterolateral hypokinesis. (02/15/2008) Orders: E KG ([id number]) C omplete Echo ([id number]) Pilar Nation MD surgical clearance: H er updated medication list for this problem includes: Metoprolol Tartrate Tabs (Metoprolol tartrate tabs) ..... 25mg one tab twice daily BP today: 120/73 Prior BP: 120/76 (02/21/2008) C ardiac Cath: No significant CAD. LV EF of 55% with mild anterolateral hypokinesis. (02/15/2008) Orders: C omplete Echo ([id number]) Pilar Nation MD surgical clearance: H er updated medication list for this problem includes: Metoprolol Tartrate Tabs (Metoprolol tartrate tabs) ..... 25mg one tab twice daily BP today: 120/73 P rior BP: 120/76 (02/21/2008) Orders: C omplete Echo ([id number]) Pilar Nation MD cp: H er updated medication list for this problem includes: Metoprolol Succinate 25 Mg Tb24 (Metoprolol succinate) ..... 1/2 tablet twice a day Aspirin 325 Mg Tabs (Aspirin) ..... One tab daily C ardiac Cath: No significant CAD. LV EF of 55% with mild anterolateral hypokinesis. (02/15/2008) Pilar Nation MD Date Name Mobile Cardiac Tele Cardiac Cath - Left - GC Mobile Cardiac Tele STR - Routine VITAMIN D, 25-HYDROX Y, LC/MS/MS MAGNESIUM HEMOGLOBIN A1c CBC (INCLUDES DIFF/P LT) THYROID PANEL WITH T SH, 3RD GENERATION LIPID PANEL COMPREHENSIVE METABO LIC PANEL W/EGFR HEMOGLOBIN A1c CBC (INCLUDES DIFF/P LT) LIPID PANEL COMPREHENSIVE METABO LIC PANEL W/EGFR Complete Echo HISTORY OF PROCEDURES Procedure Date Procedure Name Provider Procedure Notes S tatus EKG Kunal Álvarez MD complet ed Event Monitor Kunal Álvarez MD comp leted Protime Kunal Álvarez MD complet ed EKG Kunal Álvarez MD complet ed Stress EKG Pilar Nation MD completed Event Monitor Pilar Nation MD comple samson SNOMED-CT: 55294095 Physical Exam, Performed: Pulse Exam of Foot Pilar Nation MD completed Event Monitor Philippe Marrero completed EKG Pilar Nation MD completed SNOMED-CT: 273655105 [id number] Current Medications Documented Pilar Nation MD completed SNOMED-CT: 64444650 Physical Exam, Performed: Pulse Exam of Foot Pilar Nation MD completed EKG Pilar Nation MD completed SNOMED-CT: [id number] Current Medications Documented Pilar Nation MD completed EKG Pilar Nation MD completed EKG Pilar Nation MD completed EKG Pilar Nation MD completed
--- OUTSIDE RECORDS SUMMARY | 2024-10-09 08:35 | XMS_ITS | Data Portability ---
Author Organization [place] [facility], Main Office Address [address] [place] [address] Care Team Providers Care Cotton Classer Aide Name Role Phone SHARONDA AYALA Credit Advisor Assessment No assessment recorded. Plan of Treatment Reminders Order Date Submit Date Provider Last Modified By Organization Details Last Modified Time Details Appointments None recorded. Lab None recorded. Referral oral & maxillofaci al surgeon referral 2022 023 [facility] Ryan Keenan, [facility] Katya Reece, [address], [place], [address], 11:10:25 Procedures None recorded. Surgeries None recorded. Imaging None recorded. Medication Orders None recorded. Patient TargetsNo targets recorded. Patient Instructions Encounter Date Encounter Id Patient Instructions Last Modified By Organization Details Last Modified Time 03/25/2023 [id number] the use benign lesions are treated by program coordinator and she is referred back to them for care. 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 [email or web address] [facility] [address] [place], [address], 02/22/2024 17:55:47 [birth year]/1929 1011/04/2023 DEXA, axial skele ton No observ ation record ed. [email or web address] [facility] [address] [facility], [place], [address], 02/22/2024 18:08:33 Result Notes None recorded. Problems Name Problem SNOMED Code Status Onset Date Resolution Date Notes Provider Name and Address Organization Details Recorded Time Inguinal pain 728140421 Completed Not Available [facility] 3 17:00:32 Disorder of shoulder 652054294 Active Not Available [facility] 3 17:00:32 Cellulitis 700744642 Completed Not Available [facility] 3 17:00:32 von Willebrand disorder 915016156 Active Not Available [facility] 3 17:00:32 Abdominal pain 22490425 Completed Not Available [facility] 3 17:00:32 Gastroesop hageal reflux disease 776395156 Active Not Available [facility] 3 17:00:33 Gallstone 172947960 Completed Not Available [facility] 3 17:00:33 Shoulder joint pain 934053670 Active Not Available [facility] 3 17:00:33 Low back pain 670628448 Completed Not Available [facility] 3 17:00:33 Enthesopat hy of hip region 74724256 Active Not Available [facility] 3 17:00:33 Dyslipidem ia 804216537 Active Not Available [facility] 3 17:00:33 Laryngitis 55159518 Completed Not Available [facility] 3 17:00:33 Pain of hip region 20754907 Completed Not Available [facility] 3 17:00:33 Upper respirator y infection 67914714 Completed Not Available [facility] 3 17:00:33 Pain of joint 88762345 Completed Not Available [facility] 3 17:00:33 Rhinitis 48568395 Completed Not Available [facility] 3 17:00:33 Pain in limb 15464893 Active Not Available [facility] 3 17:00:33 Lucio ortega 04587123 Active 2022 Alex Self MD [address] [facility], [facility] [address], [place], [address] , [facility] 3 11:59:19 Problem Notes None recorded. Procedures Surgical History None recorded. Imaging Results Imaging Date Name Status LastModified by Organiz ation Details LastModified Time 10/30/2023 MAMMO, screening, digital, bilateral completed [address] [place], [address], 02/22/2024 17:55:47 11/04/2023 DEXA, axial skeleton completed [address] [facility] [address] [place], [address], 02/22/2024 18:08:33 Procedure Notes None recorded. Medical Equipment None Reported. Allergies No known drug allergies Medications Name Sig Start Date Stop Date Status Note LastModified by Organization Details LastModified Time cyclobenzap rine 10 mg tablet 02/05 completed Not Available Not Available Not Available amoxicillin 500 mg capsule TAKE 1 CAPSULE BY MOUTH THREE TIMES DAILY UNTIL ALL TAKEN active Not Available Not Available No t Available atorvastati n 40 mg tablet active Not Available Not Available Not Available prednisone 10 mg tablet 30 mg. X2 days, 20 mg. X2 days, 10mg. x2 days active Not Available Not Available No t Available gabapentin 600 mg tablet active Not Available Not Available Not Available atorvastati n 20 mg tablet active Not Available Not Available Not Available tizanidine 2 mg tablet active Not Available Not Available Not Available triazolam 0.25 mg tablet TAKE 1 TABLET BY MOUTH ONE HOUR BEFORE PROCEDURE . BRING 1 TABLET TO [facility] NT. DO NOT DRIVE ON THIS MEDICATIO N active Not Available Not Available No t Available atorvastati n 10 mg tablet Take 1 tablet every day by oral route. active Not Available Not Available No t Available ibuprofen 800 mg tablet TAKE 1 TABLET BY MOUTH EVERY 4 TO 6 HOURS NEEDED FOR PAIN active Not Available Not Available No t Available tizanidine 4 mg tablet active Not Available Not Available Not Available fluconazole 150 mg tablet Take 1 tablet every day by oral route. 09/03 completed Not Available Not Available Not Available valacyclovi r 1 gram tablet active Not Available Not Available Not Available hydrocodone 5 mg-acetamin ophen 325 mg tablet 02/05 completed Not Available Not Available Not Available sotalol 80 mg tablet TAKE 1 TABLET BY MOUTH EVERY 12 HOURS active Not Available Not Available No t Available ondansetron HCl 8 mg tablet Take 1 tablet every 8 hours by oral route for 2 days. 09/03 completed Not Available Not Available Not Available meloxicam 15 mg tablet Take 1 tablet every day by oral route. 07/08 completed Not Available Not Available Not Available ondansetron HCl 4 mg tablet Take 1 tablet every 6-8 hours by oral route as needed. 03/25 completed Not Available Not Available Not Available Zithromax Z-Ebenezer 250 mg tablet use as directed 11/01 completed Not Available Not Available Not Available penicillin V potassium 500 mg tablet TAKE 1 TABLET BY MOUTH FOUR TIMES DAILY active Not Available Not Available No t Available metronidazo le 500 mg tablet Take 1 tablet every 8 hours by oral route for 7 days. active Not Available Not Available No t Available ciprofloxac in 500 mg tablet TK 1 T PO BID 11/05 completed Not Available Not Available Not Available sulfamethox azole 800 mg-trimetho prim 160 mg tablet 03/25 completed Not Available Not Available Not Available omeprazole 40 mg capsule,del ayed release TAKE 1 CAPSULE BY MOUTH EVERY DAY active Not Available Not Available No t Available tramadol 50 mg tablet Take 1 tablet 3 times a day by oral route. 08/22 completed Not Available Not Available Not Available oxycodone-a cetaminophe n 5 mg-325 mg tablet 02/05 completed Not Available Not Available Not Available amitriptyli ne 25 mg tablet 03/25 completed Not Available Not Available Not Available oxycodone-a cetaminophe n 10 mg-325 mg tablet 09/05 completed Not Available Not Available Not Available dicyclomine 20 mg tablet Take 1 tablet 4 times a day by oral route for 5 days. 03/25 completed Not Available Not Available Not Available cephalexin 500 mg capsule 09/03 completed Not Available Not Available Not Available pantoprazol e 40 mg tablet,charo yed release 02/05 completed Not Available Not Available Not Available simvastatin 20 mg tablet TAKE 1 TABLET BY MOUTH EVERY DAY-stuart e call to schedule an appointme nt 07/08 completed Not Available Not Available Not Available oseltamivir 75 mg capsule Take 1 capsule twice a day by oral route for 5 days. active Not Available Not Available No t Available gabapentin 300 mg capsule Take 1 capsule twice a day by oral route. active Not Available Not Available No t Available omeprazole 20 mg capsule,del ayed release TAKE ONE CAPSULE BY MOUTH ONCE DAILYne eds appt active Not Available Not Available No t Available diltiazem CD 120 mg capsule,ext ended release 24 hr 02/04 completed Not Available Not Available Not Available montelukast 10 mg tablet Take 1 tablet(s) every day by oral route. 03/25 completed Not Available Not Available Not Available Levaquin 500 mg tablet Take 1 tablet every 24 hours by oral route for 10 days. 11/17 completed Not Available Not Available Not Available Transderm-S coppersmith apprentice 1 mg over 3 days transdermal patch Apply 4 hr prior to cruise. Change every 72 hr. One box of 4 active Not Available Not Available No t Available methylpredn isolone 4 mg tablets in a dose pack FOLLOW PACKAGE DIRECTION S active Not Available Not Available No t Available albuterol sulfate HFA 90 mcg/actuati on aerosol inhaler Inhale 2 puffs every 4 hours by inhalatio n route. active Not Available Not Available No t Available ondansetron 4 mg disintegrat ing tablet DISSOLVE 1 TABLET ON THE TONGUE EVERY 8 HOURS NEEDED FOR NAUSEA OR VOMITING active Not Available Not Available No t Available cefdinir 300 mg capsule TAKE 1 CAPSULE BY MOUTH EVERY 12 HOURS active Not Available Not Available No t Available fluticasone propionate 50 mcg/actuati on nasal spray,suspe nsion SHAKE LIQUID AND USE 2 SPRAYS IN EACH NOSTRIL EVERY DAY DIRECTED 03/25 completed Not Available Not Available Not Available doxycycline hyclate 100 mg tablet TAKE 1 TABLET BY MOUTH TWICE DAILY WITH FOOD FOR 7 DAYS active Not Available Not Available No t Available dicyclomine 10 mg capsule 03/25 completed Not Available Not Available Not Available loratadine 10 mg tablet TAKE ONE TABLET BY MOUTH ONCE DAILY---p t needs apt 03/25 completed Not Available Not Available Not Available amoxicillin 875 mg-potassiu m clavulanate 125 mg tablet Take 1 tablet twice a day by oral route for 10 days. 03/25 completed Not Available Not Available Not Available amoxicillin 500 mg-potassiu m clavulanate 125 mg tablet TAKE 1 TABLET BY MOUTH THREE TIMES DAILY active Not Available Not Available No t Available cyclobenzap rine 5 mg tablet active Not Available Not Available Not Available nitrofurant oin monohydrate /macrocryst als 100 mg capsule Take 1 capsule every 12 hours by oral route. 09/03 completed Not Available Not Available Not Available Lyrica 75 mg capsule Take 1 capsule twice a day by oral route for 30 days. 03/25 completed Not Available Not Available Not Available Lyrica 100 mg capsule 11/05 completed Not Available Not Available Not Available magnesium 07/08 completed Not Available Not Available Not Available Vitamin D3 09/03 completed Not Available Not Available Not Available turmeric root extract 09/03 completed Not Available Not Available Not Available Linzess 72 mcg capsule active Not Available Not Available Not Available Ubrelvy 100 mg tablet active Not Available Not Available No t Available Vitals Date Recorded Body height Body mass index (BMI) Body weight Body temperature Provider Name and Address Organization Details Last Updated DateTime 03/25/2023 162.56 cm 30.6 kg/m2 01573.44 g 97.8 [degF] Cynthia Naylor RN [facility] 03/25/2023 11:47:42 Social History Question Answer Notes LastModified by Organizat ion Details LastModified Time Tobacco Smoking Status Never Smoker MESHA Schneider null, [place] [facility] 03/24/2023 15:49:01 What Is Your Level Of Alcohol Consumption? 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 Mental Status None recorded. Family History Relationship Description Onset Age of this Age Resolved Age Notes LastModified by Organization Details LastModified Time Father No current problems or disability [email or web address] Not available 03/24 15:48:45 Mother No current problems or disability [email or web address] Not available 03/24 15:48:45 Medical History Condition Response HEART DISEASE/HEART PROBLEMS Y Gynecological HistoryNo gynecological history recorded. 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 Health Concerns Section Related Observation LastModified by Organization Detai ls LastModified Time None Recorded Concern Status LastModified by Organization Details LastModified Time None Recorded Advance Directives Directive None Recorded Payers Encounter Date Sequence Insurance Name Policy Number Policy Sweet Covered Member ID Sweet Member ID Guarantor Name 03/25/2023 1 [facility] [id number] Kerry Julian [id number] Kerry Julian Notes Date Note Type Note Provider Name and Address Organization Details Recorded Time 03/25/2023 text/html 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 She did see an oral surgeon who agreed to do the surgery but this was declined by the insurance company. She was referred by her dentist. Alex Self MD [address] [place] [address], [facility] [address], [place], [address], [facility] 03/25/2023 11:59:59 OBGyn Episode No OBEpisode recorded.
--- OUTSIDE RECORDS SUMMARY | 2024-10-09 08:35 | XMS_ITS | Clinical Summary ---
Author Organization [facility] Address [address] [place] [address] Care Team Providers Care Prototype Model Maker Name Role Phone Unavailable Primary Care Provider Unavailabl e Allergies No known active allergies Medications * This document contains information received from the source organization and may not represent a complete record from that organization. ondansetron (ZOFRAN-ODT) 4 MG disintegrating tablet Take 1 tablet (4 mg total) by mouth every 8 (eight) hours as needed. 10 tablet Active Social History Tobacco Use Types Packs/Day Years Used Date Smoking Tobacco: Never Assessed Comments Unknown Sex and Gender Information Value Date Recorded Sex Assigned at Not on file Legal Sex Female 9:48 AM CDT Gender Identity Not on file Sexual Orientation Not on file Last Filed Vital Signs Vital Sign Reading Time Taken Comments Blood Pressure 133/70 11/07/2023 9:57 AM CDT Pulse 58 11/07/2023 9:57 AM CDT Temperature 35.9 C (96.7 F) 11/07/2023 9:57 AM CDT Respiratory Rate 16 11/07/2023 9:57 AM CDT Oxygen Saturation 96% 11/07/2023 9:57 AM CDT Inhaled Oxygen Concentration - - Weight 79.4 kg (175 lb) 11/07/2023 9:57 AM CDT Height 157.5 cm (5' 2 ) 11/07/2023 9:57 AM CDT Body Mass Index 32.01 11/07/2023 9:57 AM CDT Plan of Treatment Health Maintenance Due Date Last Done Comments Cervical Cancer Screening Pa p Smear (Age 30 to 64) Every 3 Years 1968 Colorectal Cancer Screening Colonoscopy (10 Years) 1968 Annual Physical 02/22/1971 Hepatitis C 02/22/1986 Hepatitis B Vaccines (1 of 3 - 19+ 3-dose series) 02/22/1987 Cervical Cancer Screening Pa p with HPV Testing (Age 30 to 64) Every 5 Years 02/22/1998 Cervical Cancer Screening wi th HPV 02/22/1998 Mammogram Screening 2008 Pneumococcal Vaccine: 50+ Years (1 of 1 - PCV) 02/22/2018 Zoster Vaccines (2 of 2) 06/08/2020 04/13/2020 COVID-19 Vaccine (3 - 2023-2 5 season) 2024 08/26/2020, 08/05/2020 DTaP, Tdap and Td Vaccines ( 2 - Td or Tdap) 10/18/2030 10/18/2020 Meningococcal B Vaccine Aged Out No l onger eligible based on patient's age to complete this topic Meningococcal Vaccine Aged Out No al osmel eligible based on patient's age to complete this topic RSV Immunizations Under 20 Months Aged Out No longer eligible b ased on patient's age to complete this topic Insurance [employer]
--- OUTSIDE RECORDS SUMMARY | 2024-10-09 08:35 | XMS_ITS | Clinical Summary ---
Author Organization [facility] Address [address] [place] [address] Phone Care Team Providers Care Crystal Inspector Name Role Phone Sunshine Vitale APRN, TANESHA Primary Care Provid er Sonny Singh MD Unavailable [phone] Allergies No known active allergies Medications linaCLOtide (Linzess) 72 MCG Capsule Take by mouth every morning (before breakfast). Active Ubrogepant (Ubrelvy) 100 MG Tablet Take by mouth. Active atorvastatin (LIPITOR) 40 MG Tablet Take 40 mg by mouth daily. Active ibuprofen (MOTRIN) 800 MG Tablet Take 800 mg by mouth every 8 hours. Active tiZANidine (ZANAFLEX) 2 MG Capsule Take 2 mg by mouth 3 times daily. Active omeprazole (PriLOSEC) 40 MG CAPSULE DELAYED RELEASE Take 40 mg by mouth daily. Active sotalol (BETAPACE) 80 MG Tablet Take 80 mg by mouth 2 times daily. Active gabapentin (NEURONTIN) 600 MG Tablet Take 600 mg by mouth 3 times daily. Active methocarbamol (ROBAXIN) 500 MG Tablet Take 1,000 mg by mouth 4 times daily. Active ALBUTEROL SULFATE IN take by inhalation. Active metoclopramide (Reglan) 10 MG Tablet Take 1 Tablet by mouth as needed for Other (migraine). 10 Tablet 05/26/2023 Active Topiramate 50 MG Tablet Take 1 Tablet by mouth 2 times daily. 60 Tablet 2 08/24/2023 Active Family History Medical History Relation Name Comments Coronary Artery Disease Father Diabetes Father Hypertension Father Glaucoma Mother Cancer Sister Hypothyroidism Sister Relation Name Status Comments Father Mother Sister Social History Tobacco Use Types Packs/Day Years Used Date Smoking Tobacco: Never Smokeless Tobacco: Never Alcohol Use Standard Drinks/Week Comments Yes 0 (1 standard drink = 0.6 oz pur e alcohol) social Comments Unknown Sex and Gender Information Value Date Recorded Sex Assigned at Not on file Legal Sex Female 9:58 AM CDT Gender Identity Not on file Sexual Orientation Not on file Last Filed Vital Signs Vital Sign Reading Time Taken Comments Blood Pressure 118/70 05/26/2023 11:12 AM SUPERVISOR HARD CANDY Pulse 55 05/26/2023 11:12 AM SUPERVISOR HARD CANDY Temperature 36.2 C (97.2 F) 05/26/2023 11:06 AM SUPERVISOR HARD CANDY Respiratory Rate 20 05/26/2023 11:06 AM SUPERVISOR HARD CANDY Oxygen Saturation 97% 05/26/2023 11:06 AM SUPERVISOR HARD CANDY Inhaled Oxygen Concentration - - Weight 82.6 kg (182 lb) 05/26/2023 11:06 AM SUPERVISOR HARD CANDY Height 157.5 cm (5' 2 ) 05/26/2023 11:06 AM SUPERVISOR HARD CANDY Body Mass Index 33.29 05/26/2023 11:06 AM SUPERVISOR HARD CANDY Plan of Treatment Health Maintenance Due Date Last Done Comments Hepatitis C Virus (HCV) Screening 1968 Mammogram 1968 Hepatitis B Immunization (1 of 3 - 19+ 3-dose series) 02/22/1987 Pap Smear 02/22/1989 Cervical Cancer Screening (CCS) 02/22/1998 HPV/Cotest 02/22/1998 Colonoscopy 02/22/2013 Colorectal Cancer Screening 02/22/2013 Cologuard 02/22/2018 Immunochemical Fecal Occult Blood 02/22/2018 Pneumococcal Immunization (5 0+ years) (1 of 1 - PCV) 02/22/2018 Zoster Immunization (2 of 2) 06/08/2020 04/13/2020 Influenza Immunization (#1) 2024 SARS-COV-2 Immunization (3 - 2023- season) 2024 08/26/2020, 08/05/2020 Respiratory Syncytial Virus (RSV) Immunization (Adult) (1 - 1-dose 75+ series) 02/22/2043 DTaP/Tdap/Td Immunization Discontinued 10/18/2020 TdaP Immunization Completed 10/18/2020 Meningococcal Immunization (ACWY) Aged Out No longer eligible based on patient's age to complete this topic Rotavirus Immunization Aged Out No lo nger eligible based on patient's age to complete this topic Insurance [employer] SO[place] Care Teams Crystal Inspector Relationship Specialty Start Date End Date Sunshine Vitale APRN, RESTAURANT LEAD PCP - General Internal Medicine 01/28/23 Sonny Singh MD [address] [place] [address] Consulting Physician Neurology 05/26/23
--- OUTSIDE RECORDS SUMMARY | 2024-10-09 08:36 | XMS_ITS | Clinical Summary ---
Author Organization [facility] Address [address] [place] [address] Care Team Providers Care Dictaphone Typist Name Role Phone José Schuler MD Primary Care Provider [phone] [facility],non-owned Affiliates and Associated Physician Practices is amultiple site organization consisting of ambulatory clinics and hospital sitesin [place], [place], [place] and [place]. This disclosure is being madepursuant to the Care Everywhere program and may not contain all information available regarding this patient. Last updated 18.[facility] Allergies No known active allergies Medications * Be aware that medications may not be up to date on this document. Alwaysverify current medications with the patient. atorvastatin (Lipitor) 40 MG tablet Take 1 (one) tablet by mouth once daily Active gabapentin (Neurontin) 300 MG capsule Take 1 (one) capsule by mouth 3 times daily 05/12/2024 Active omeprazole (PriLOSEC) 40 MG capsule Take 1 (one) capsule by mouth once daily Active sotalol (Betapace) 80 MG tablet Take 1 (one) tablet by mouth 2 times daily Active clobetasol (Temovate) 0.05 % ointment Apply to affected area 2 times daily Active MULTIPLE VITAMIN PO Active trospium (Sanctura) 20 MG tablet Take 1 (one) tablet by mouth 2 times daily 60 tablet 3 06/30/2024 Active Active Problems Problem Noted Date Diagnosed Date Shortness of breath 11/10/2018 Sinus bradycardia 10/15/2017 Dizziness 03/31/2016 Palpitations 03/31/2016 Gastroesophageal reflux disease 04/18/2014 Chest pain 02/21/2008 Family History Medical History Relation Name Comments CAD (Coronary Artery Disease) Father Diabetes; unknown type Father Hypertension Father Cancer - Colon Maternal Grandfather Relation Name Status Comments Father Maternal Grandfather Social History Tobacco Use Types Packs/Day Years Used Date Smoking Tobacco: Never Smokeless Tobacco: Never Tobacco Cessation:Counseling Given: Not Answered Alcohol Use Standard Drinks/Week Comments Not Currently 0 (1 standard drink = 0.6 oz pur e alcohol) Comments No Sex and Gender Information Value Date Recorded Sex Assigned at Not on file Legal Sex Female 7:06 AM CDT Gender Identity Not on file Sexual Orientation Not on file Last Filed Vital Signs Vital Sign Reading Time Taken Comments Blood Pressure 120/77 06/30/2024 10:43 AM GAS MAKER Pulse - - Temperature - - Respiratory Rate - - Oxygen Saturation - - Inhaled Oxygen Concentration - - Weight 83.9 kg (185 lb) 06/30/2024 10:43 AM GAS MAKER Height 157.5 cm (5' 2 ) 06/30/2024 10:43 AM GAS MAKER Body Mass Index 33.84 06/30/2024 10:43 AM GAS MAKER Plan of Treatment Health Maintenance Due Date Last Done Comments COLOGUARD (AGES 45-75) - COL ON CA SCREENING 1968 COLON MONITORING 1968 COLONOSCOPY - COLON CA SCREENING 1968 CT COLONOGRAPHY - COLON CA SCREENING 1968 Colorectal Cancer Screening 1968 FIT - COLON CA SCREENING 1968 FLEX SIG - COLON CA SCREENING 1968 MAMMOGRAM 1968 PAP SMEAR 1968 HIV SCREENING 02/22/1983 HEPATITIS C SCREENING 02/18/1986 DTAP/TDAP/TD VACCINES (1 - Tdap) 02/22/1987 HEPATITIS B VACCINE (1 of 3 - 19+ 3-dose series) 02/22/1987 PNEUMOCOCCAL VACCINE 50+ (1 of 1 - PCV) 02/22/2018 ZOSTER VACCINE (1 of 2) 02/22/2018 COVID-19 VACCINE ( - 2023-2 5 season) 2024 08/26/2020, 08/05/2020 DEPRESSION SCREENING 06/08/2024 SCREENING FOR DIABETES 06/09/2024 INFLUENZA VACCINE (Season Ended) 2025 HIB VACCINE Aged Out No longer eligi ble based on patient's age to complete this topic HPV VACCINE Aged Out No longer eligi ble based on patient's age to complete this topic MENINGOCOCCAL (Group B) VACCINE SHARED DECISION-MAKING Aged Out No longer eligible based on patient's age to complete this topic MENINGOCOCCAL GROUPS A/C/Y/W VACCINE Aged Out No longer eligible b ased on patient's age to complete this topic Insurance SELF PAY NO INSURANCE Member Subscriber Plan / Payer (Ef fective for All Dates) Name:Chance Julian Member ID:Not on file Relation to Subscriber:Not on file Name:CHANCE JULIAN Subscriber ID:Not on file Address: [address] [place], [place] [address] [place] [address] Payer ID:Not on file Group ID:Not on file Type:Self Pay Address: [place], [place] AETNA SELF PAY NO INSURANCE Member Subscriber Plan / Payer (Ef fective for All Dates) Name:Chance Julian Member ID:Not on file Relation to Subscriber:Not on file Name:CHANCE JULIAN Subscriber ID:Not on file Address: [facility] [place] [address] Payer ID:Not on file Group ID:Not on file Type:Self Pay Address: [place], [place] * Guarantor: CHANCE JULIAN Account Type Relation to Patient Date of Phone Billing Address Personal/Family [address] [place] [address] SELF PAY NO INSURANCE Member Subscriber Plan / Payer (Ef fective for All Dates) Name:Chance Julian Member ID:Not on file Relation to Subscriber:Not on file Name:CHANCE JULIAN Subscriber ID:Not on file Address: [place] [address] Payer ID:Not on file Group ID:Not on file Type:Self Pay Address: [place], [place] Care Teams Dictaphone Typist Relationship Specialty Start Date End Date José Schuler MD [address] [place] [id number] PCP - General Internal Medicine 06/09/24
--- OUTSIDE RECORDS SUMMARY | 2024-10-09 08:36 | XMS_ITS | Referral Summary ---
Author Organization [facility] Address [facility] [place] [address] Care Team Providers Care Warp Yarn Sorter Name Role Phone José Schuler MD Unavailable [phone] Shukri Goodman MD Primary Care Provider + Allergies No known active allergies Medications atorvastatin (LIPITOR) 20 mg tablet TAKE ONE TABLET BY MOUTH ONCE DAILY FOR HIGH CHOLESTEROL 1 Active omeprazole (PriLOSEC) 20 mg capsuleIndicati ons:Treatment of Non-Bleeding Gastric Disorder Take 20 mg by mouth every morning 9 Active montelukast (SINGULAIR) 10 mg tabletIndicatio ns:Allergic Rhinitis Take 10 mg by mouth nightly 9 Active albuterol HFA (PROVENTIL HFA,VENTOLIN HFA,PROAIR HFA) 90 mcg/actuation inhalerIndicati ons:Bronchospas m Prevention Inhale 2 puffs every 6 (six) hours as needed for wheezing Active halobetasol (ULTRAVATE) 0.05 % ointment 1 Active desonide (DESOWEN) 0.05 % ointment 2 Active fluticasone propionate (FLONASE) 50 mcg/actuation nasal spray fluticasone propionate 50 mcg/actuation nasal spray,suspension Active ibuprofen (ADVIL,MOTRIN) 800 mg tablet 800 mg Active lubiprostone (AMITIZA) 24 mcg capsule 2 Active gabapentin (NEURONTIN) 600 mg tabletIndicatio ns:Neuropathic Pain Take 1 tablet (600 mg total) by mouth 3 (three) times a day 90 capsule 6 2 Active methocarbamoL (ROBAXIN) 500 mg tabletIndicatio ns:Muscle Spasm Take 1 tablet (500 mg total) by mouth 3 (three) times a day 90 tablet 3 2 Active gabapentin (NEURONTIN) 300 mg capsule TAKE 1 CAPSULE(300 MG) BY MOUTH THREE TIMES DAILY 90 capsule 4 Active Active Problems Problem Noted Date Diagnosed Date Disorder of shoulder 03/06/2022 Dyslipidemia 03/06/2022 Enthesopathy of hip region 03/06/2022 Gastroesophageal reflux disease 03/06/2022 Pain in limb 03/06/2022 Shoulder joint pain 03/06/2022 S/P cervical spinal fusion 05/24/2019 Cervical spinal stenosis 01/03/2019 Overview (01/03/2019): Added automatically from request for surgery [id number] Shortness of breath 11/10/2018 Sinus bradycardia 10/15/2017 Dizziness 03/31/2016 Palpitations 03/31/2016 Von Willebrand's disease 06/20/2015 Overview (09/11/2016): Von Willebrands Hyperlipidemia 06/20/2015 Overview (09/11/2016): Hyperlipidemia Abnormal electrocardiogram (ECG) (EKG) 8 Chest pain 02/21/2008 Hypertension, essential 02/21/2008 Immunizations Immunization Administration Dates Next Due Tdap 10/18/2020 ZOSTER Recombinant 04/13/2020 Social History Tobacco Use Types Packs/Day Years Used Date Smoking Tobacco: Never Smokeless Tobacco: Never Tobacco Cessation:Counseling Given: Not Answered Alcohol Use Standard Drinks/Week Comments Not Currently 0 (1 standard drink = 0.6 oz pur e alcohol) AUDIT-C Answer Date Recorded Q1: How often do you have a drink containing alcohol? Never 06/03/2022 Q2: How many drinks containi ng alcohol do you have on a typical day when you are drinking? Patient does not drink Frequency of Binge Drinking Not on file 05/09 Comments No Sex and Gender Information Value Date Recorded Sex Assigned at Not on file Legal Sex Female 7:00 AM TOP EDGE BEVELER Gender Identity Female 03/12/2022 12:16 PM CDT Sexual Orientation Not on file Last Filed Vital Signs Vital Sign Reading Time Taken Comments Blood Pressure 171/91 06/03/2022 10:12 AM TOP EDGE BEVELER Pulse 58 06/03/2022 10:12 AM TOP EDGE BEVELER Temperature 36.2 C (97.1 F) 06/03/2022 9:13 AM TOP EDGE BEVELER Respiratory Rate 12 06/03/2022 10:12 AM TOP EDGE BEVELER Oxygen Saturation 100% 06/03/2022 10:12 AM TOP EDGE BEVELER Inhaled Oxygen Concentration - - Weight 79.6 kg (175 lb 7.8 oz) 05/08/2022 12:56 PM TOP EDGE BEVELER Height 157.5 cm (5' 2 ) 05/08/2022 12:56 PM TOP EDGE BEVELER Body Mass Index 32.1 05/08/2022 12:56 PM TOP EDGE BEVELER Plan of Treatment Not on file Goals Goal Patient Goal Type Associated Problems Recent Progress Patient-Stated? Author CCM Chronic Pain Care Plan Chronic Care Management No change(06/03 9:15 AM TOP EDGE BEVELER) No Jennifer Collins, RN Note: Problem: Chronic Pain Goals: 1. Minimize further functional decline 2. Maximize quality of life 3. Control pain Strategies: - Activity/exercise program recommendation - Conservative stepwise pain medicine strategy with multi-disciplinary approach - Recommend healthy lifestyle strategies and compensatory methods as needed Medical Devices Implanted Type Area Tower Truck Driver Device Identifier Shelf Expiration Date Model / Serial / Lot Titanium Plate N/A: Occipital Lobe Abyrx Os-201 Hemasorb Os-Spa Spatula Wax 2gm Bone Sterile - [id number] Implanted:Qty: 1 on 04/13/2019 by Royer Souza MD at [facility] N/A: Spine Cervical Abyrx 11/04/2021 OS-201 / / Musculoskeletal Transplant [id number] 4-30mm Allograft Frozen [id number] Wedge Graft Bone - [id number] - [id number] Implanted:Qty: 1 on 04/13/2019 by Royer Souza MD at [facility] N/A: Spine Cervical Musculoskeletal Transplant 05/24/2023 [id number] / [id number] / Deo Spine [id number] Aviator 4mm 14mm Variable Angle Self Tap Spine Cervical Anterior - [id number] Implanted:Qty: 5 on 04/13/2019 by Royer Souza MD at [facility] N/A: Spine Cervical Amity Spine [id number] / / Amity Spine [id number] Aviator 4.35mm 14mm Variable Angle Self Tap Spine Cervical - [id number] Implanted:Qty: 1 on 04/13/2019 by Royer Souza MD at [facility] N/A: Spine Cervical Amity Spine [id number] / / Deo Spine [id number] Aviator 32x17.4x2.5mm Level 2 Automatic Lock System Spring Load - [id number] Implanted:Qty: 1 on 04/13/2019 by Royer Souza MD at [facility] N/A: Spine Cervical Amity Spine [id number] / / [place] [address] [facility] [place]REF[place]REF[place] Advance Directives For more information, please contact: [phone] * Full Code (Latest Code Status on File) Date Activated Date Inactivated Comments 04/13/2019 4:46 PM 04/15/2019 4:18 PM Care Teams Warp Yarn Sorter Relationship Specialty Start Date End Date Shukri Goodman MD [address] [place] [address] PCP - General Internal Medicine 03/06/22 José Schuler MD 12/08/18
--- OUTSIDE RECORDS SUMMARY | 2024-10-09 08:36 | XMS_ITS | Clinical Summary ---
Author Organization [facility] Address [facility] [place] [address] Care Team Providers Care Hoop Flaring Machine Operator Name Role Phone José Schuler MD Unavailable [phone] Shukri Goodman MD Primary Care Provider + [...] (01/03/2019): Added automatically from request for surgery [id number] Shortness of breath 11/10/2018 Sinus bradycardia 10/15/2017 Dizziness 03/31/2016 Palpitations 03/31/2016 Von Willebrand's disease 06/20/2015 Overview (09/11/2016): Von Willebrands Hyperlipidemia 06/20/2015 Overview (09/11/2016): Hyperlipidemia Abnormal electrocardiogram (ECG) (EKG) 8 Chest pain 02/21/2008 Hypertension, essential 02/21/2008 Immunizations Immunization Administration Dates Next Due Tdap 10/18/2020 ZOSTER Recombinant 04/13/2020 Surgical History Surgery Date Site/Laterality Comments CERVICAL SPINE SURGERY c-spine surgery OTHER SURGICAL HISTORY 3 c-sections CRANIECTOMY SUBOCCIPITAL W/ CERVICAL LAMINECTOMY / CHIARI 06/08/2014 - 06/07/2015 Alexa Malformation SECTION 1988, 1990, 1993 Medical History Medical History Date Comments Anxiety GERD (gastroesophageal reflux disease) Seasonal allergies Neck pain Arthritis [place] (hard of hearing) Chest pain Heartburn Headache Family History Medical History Relation Name Comments Diabetes Father Heart disease Father Hypertension Father Hypertension Maternal Grandfather Hypertension Maternal Grandmother Psoriasis Other Family history of Psoriasis; Cancer Paternal Grandfather Anemia Sister Anesthesia problems Neg Hx Relation Name Status Comments Father Maternal Grandfather Maternal Grandmother Other Paternal Grandfather Sister Social History Tobacco Use Types Packs/Day [...] on file Legal Sex Female 7:00 AM ALL AROUND GEAR MACHINE OPERATOR Gender Identity Female 03/12/2022 12:16 PM CDT Sexual Orientation Not on file Obstetrics History Last Filed Vital Signs Vital Sign Reading Time Taken Comments Blood Pressure 171/91 06/03/2022 10:12 AM ALL AROUND GEAR MACHINE OPERATOR Pulse 58 06/03/2022 10:12 AM ALL AROUND GEAR MACHINE OPERATOR Temperature 36.2 C (97.1 F) 06/03/2022 9:13 AM ALL AROUND GEAR MACHINE OPERATOR Respiratory Rate 12 06/03/2022 10:12 AM ALL AROUND GEAR MACHINE OPERATOR Oxygen Saturation 100% 06/03/2022 10:12 AM ALL AROUND GEAR MACHINE OPERATOR Inhaled Oxygen Concentration - - Weight 79.6 kg (175 lb 7.8 oz) 05/08/2022 12:56 PM ALL AROUND GEAR MACHINE OPERATOR Height 157.5 cm (5' 2 ) 05/08/2022 12:56 PM ALL AROUND GEAR MACHINE OPERATOR Body Mass Index 32.1 05/08/2022 12:56 PM ALL AROUND GEAR MACHINE OPERATOR Plan of Treatment Health Maintenance Due Date Last Done Comments Breast Cancer Screening-Mammogram 1968 Cervical Cancer Screening 1968 Colon Cancer Screening-Colonoscopy 1968 Depression Screening 1968 Hepatitis C Screening 1968 Hepatitis B Screening 02/22/1986 Regular Well Visit/Exam 18-64 02/22/1986 Zoster Vaccine (2 of 2) 06/08/2020 04/13/2020 Covid-19 Vaccine (2023-2 5 season) 2024 08/26/2020, 08/05/2020 Influenza Vaccine (#1) 2024 DTaP/Tdap/Td Vaccine (2 - Td or Tdap) 10/18/2030 10/18/2020 Pneumococcal vaccine <65 Aged Out No longer eligible based on patient's age to complete this topic Goals Goal Patient Goal Type Associated Problems Recent Progress Patient-Stated? Author CCM Chronic Pain Care Plan Chronic Care Management No change(06/03 9:15 AM ALL AROUND GEAR MACHINE OPERATOR) Jennifer Doe RN Note: Problem: Chronic Pain Goals: 1. Minimize further functional decline 2. Maximize quality of life 3. Control pain Strategies: - Activity/exercise program recommendation - Conservative stepwise pain medicine strategy with multi-disciplinary approach - Recommend healthy lifestyle strategies and compensatory methods as needed Medical Devices Implanted Type Area Child Guidance Counselor Device Identifier Shelf Expiration Date Model / Serial / Lot Titanium Plate N/A: Occipital Lobe Abyrx Os-201 Hemasorb Os-Spa Spatula Wax 2gm Bone Sterile - [id number] Implanted:Qty: 1 on 04/13/2019 by Royer Souza MD at [facility] N/A: Spine Cervical Abyrx 11/04/2021 OS-201 / / Musculoskeletal Transplant [id number] 4-30mm Allograft Frozen [id number] Wedge Graft Bone - [id number] - [id number] Implanted:Qty: 1 on 04/13/2019 by Royer Souza MD at [facility] N/A: Spine Cervical Musculoskeletal Transplant 05/24/2023 [id number] / [id number] / Deo Spine [id number] Aviator 4mm 14mm Variable Angle Self Tap Spine Cervical Anterior - [id number] Implanted:Qty: 5 on 04/13/2019 by Royer Souza MD at [facility] N/A: Spine Cervical Deo Spine [id number] / / Milo Spine [id number] Aviator 4.35mm 14mm Variable Angle Self Tap Spine Cervical - [id number] Implanted:Qty: 1 on 04/13/2019 by Royer Souza MD at [facility] N/A: Spine Cervical Milo Spine [id number] / / Milo Spine [id number] Aviator 32x17.4x2.5mm Level 2 Automatic Lock System Spring [facility] - [id number] Implanted:Qty: 1 on 04/13/2019 by Royer Souza MD at [facility] N/A: Spine Cervical Deo Spine [id number] / / Insurance AETNA [place] [facility] [place] PREFERRED BENJAMINJuvencioSESAR [place] PREFERRED Advance Directives For more information, please contact: [phone] * Full Code (Latest Code Status on File) Date Activated Date Inactivated Comments 04/13/2019 4:46 PM 04/15/2019 4:18 PM Care Teams Hoop Flaring Machine Operator Relationship Specialty Start Date End Date Shukri Goodman MD [address] [place] [address] PCP - General Internal Medicine 03/06/22 José Schuler MD 12/08/18
--- NOTE | 2024-10-09 08:44 | ED.BACK ---
HPI - Back Pain/Injury General Chief Complaint: Back Pain/Injury Stated Complaint: I've jacked up my back Time Seen by Provider: 10/09/24 08:44 Source: patient Mode of arrival: ambulatory Limitations: no limitations History of Present Illness HPI Narrative: Patient drove herself to the emergency room complaining of back pain including thoracic and lumbar, after picking up a private fence 7 days ago, 3 days later patient lost her balance was about to fall but did not pain got worse. History of neck surgery, currently complaining of chronic neck pain which a little bit worse than before. Patient denies any tingling or numbness. Related Data Home Medications ?Medication ?Instructions ?Recorded ?Confirmed ?Last Taken ?Type gabapentin 300 mg capsule 300 mg PO BID 07/16/22 04/19/24 04/04/24 06:00 History omeprazole 40 mg capsule,delayed 40 mg PO DAILY 07/16/22 04/19/24 04/03/24 09:00 History release Allergies Allergy/AdvReac Type Severity Reaction Status Date / Time No Known Allergies Allergy Verified 10/09/24 08:34 Review of Systems Review of Systems: All systems reviewed & are unremarkable except as noted in HPI and below PMFSH Past Medical History Medical History A-fib Abdominal pain Diarrhea Left bundle branch block History of hyperlipidemia Acid reflux Missed Surgical History Surgical History History of tubal ligation H/O spinal fusion History of craniotomy History of endometrial ablation History of cholecystectomy Previous section x 3 Family History Family History Father Family history of elevated blood lipids Diabetes mellitus Family history of diabetes mellitus in first degree relative Family history of hypercholesterolemia Family history of premature coronary heart disease Hypertension Sibling Family history of malignant neoplasm of thyroid Mother Diabetes mellitus Grandparent Diabetes mellitus Social History Social History Social History: Code status: Full code. Smoking status: Never smoker Second hand tobacco smoke exposure: No Alcohol intake: never Substance use: never Substance use type: does not use Do You Feel Safe in your Home?: Yes Lack of Transportation: No Lack of Food: Never True Current Housing: I Have Housing Concerned About Future Housing: No Difficulty Paying Gas/Electric Bills: No Difficulty Paying for Meds: No Currently Unemployed: No Education: Bachelor's Degree Difficulty w/ Childcare or Family Care: No Living arrangements: with family Occupation/Education: occupation Gender identity (if verbalized by the patient): Female Spiritual care concerns: No Exam Narrative: General appearance: Well-developed, well-nourished Skin: Normal color Head: Normocephalic, nontraumatic Eyes: Clear conjunctiva ENT: Oropharynx normal, ears normal, nose normal Neck: Supple, nontender Chest and respiratory: Airway patent, no respiratory distress, no accessory muscle use Heart: Regular rate/rhythm Abdomen: Soft, nontender, no organomegaly, quiet bowel sounds Vascular: Normal peripheral pulses, normal capillary refill. Musculoskeletal: Diffuse tenderness along the back, thoracic and lumbar spine, and the back of the neck, slight limited range of motion all over because of pain. No bruises, no swelling, no deformity. Surgical scar of the neck posteriorly Neurologic: Alert and oriented ?3, LAND TITLE EXAMINER is normal as tested, no gross motor deficit Course Vital Signs Vital signs: Vital Signs Temperature 36.4 C 10/09/24 08:50 Pulse Rate 60 10/09/24 08:50 Respiratory Rate 18 10/09/24 08:50 Blood Pressure 152/96 H 10/09/24 08:50 Pulse Oximetry 100 10/09/24 08:50 Temperature 36.4 C 10/09/24 08:50 Pulse Rate 60 10/09/24 08:50 Respiratory Rate 18 10/09/24 08:50 Blood Pressure 152/96 H 10/09/24 08:50 Pulse Oximetry 100 10/09/24 08:50 MDM - Back Pain/Injury MDM Narrative Medical decision making narrative: Differential diagnosis includes strain/sprain of the back. CT cervical spine showed X-ray thoracic and lumbar spine showed Diagnosis musculoskeletal sprain/strain Differential Diagnosis Differential diagnosis: Likely other (As above) Imaging Data Radiologist's impression: Impressions Lumbar Spine X-Ray 10/09/24 09:38 IMPRESSION: No acute osseous abnormality lumbar spine. Degenerative changes of the spine. Bilateral sacroiliitis. Thoracic Spine X-Ray 10/09/24 09:39 IMPRESSION: No acute osseous abnormality of the thoracic spine. Multilevel degenerative disc disease Cervical Spine CT 10/09/24 10:12 IMPRESSION: No acute osseous abnormality cervical spine. Postoperative changes. Critical Care Time Critical Care Time Critical Care Time: No Discharge Plan Discharge Clinical Impression: Back pain, Muscle pain Patient Disposition: Home Condition: Stable Instructions: Musculoskeletal Pain (ED), Back Pain (ED) Additional Instructions: Return if symptoms are worsening , call your family physician for appointment, take Tylenol as as needed for aches and pain, continue home medications. Patient Language: Yakut Prescriptions: New diclofenac sodium 75 mg tablet,delayed release (DR/EC) 75 mg PO BID PRN (Reason: pain) Qty: 20 0RF cyclobenzaprine 10 mg tablet 10 mg PO TID PRN (Reason: muscle spasm) Qty: 20 0RF No Action atorvastatin 40 mg tablet 40 mg PO DAILY Qty: 90 2RF clobetasol 0.05 % ointment 1 applic topical DAILY 14 Days Qty: 60 4RF Rx Instructions: then continue using every other day for 2 weeks, then use at least 1-4x/month thereafter omeprazole 40 mg capsule,delayed release(DR/EC) 40 mg PO DAILY gabapentin 300 mg capsule 300 mg PO BID Rx Instructions: Pt reports taking 300 mg in the morning and afternoon, and 600mg po HS acetaminophen 500 mg tablet 1,000 mg PO TID Qty: 60 0RF docusate sodium [Colace] 100 mg capsule 100 mg PO BID Qty: 90 0RF ibuprofen 800 mg tablet 800 mg PO TID Qty: 30 0RF sotalol 80 mg tablet See Rx Instructions .ROUTE .COMPLEX Qty: 180 2RF Dose Instruction: TAKE 1 TABLET BY MOUTH EVERY 12 HOURS Rx Instructions: TAKE 1 TABLET BY MOUTH EVERY 12 HOURS Follow-up/Referrals: Ganga,MD José [Primary Care Provider] -
[2024-10-09 08:50] VITALS: BP 152/96; PULSE 60; RESP 18; TEMP 36.4; O2SAT 100
[2024-10-09] MEDS: IBUPROFEN 600 MG TABLET PO (09:34)
[2024-10-09] MEDS: ACETAMINOPHEN 325 MG TABLET 650 MG PO (09:35)
--- OUTSIDE RECORDS SUMMARY | 2024-10-09 09:36 | XMS_ITS | Clinical Summary ---
Author Organization [facility] Address [address] [address] Care Team Providers Care Investigator Operator Name Role Phone José Schuler MD Primary Care Provider [phone] Source Comments [facility],non-owned Affiliates and Associated Physician Practices is amultiple site organization consisting of ambulatory clinics and hospital sitesin [place], [place], [place] and [place]. This disclosure is being madepursuant to the Care Everywhere program and may not contain all information available regarding this patient. Last updated 18.[facility] Allergies No known active allergies Medications * [...] Comments Blood Pressure 120/77 06/30/2024 10:43 AM BODY MECHANIC Pulse - - Temperature - - Respiratory Rate - - Oxygen Saturation - - Inhaled Oxygen Concentration - - Weight 83.9 kg (185 lb) 06/30/2024 10:43 AM BODY MECHANIC Height 157.5 cm (5' 2 ) 06/30/2024 10:43 AM BODY MECHANIC Body Mass Index 33.84 06/30/2024 10:43 AM BODY MECHANIC Plan of Treatment Health Maintenance Due Date [...] Name:CHANCE JULIAN Subscriber ID:Not on file Address: [address] [place], [place] [address] [place] [place] [address] Payer ID:Not on file Group ID:Not on file Type:Self Pay Address: [place], [place] AETNA SELF PAY NO INSURANCE Member Subscriber Plan / Payer (Ef fective for All Dates) Name:Chance Julian Member ID:Not on file Relation to Subscriber:Not on file Name:CHANCE JULIAN Subscriber ID:Not on file Address: [facility] [place] [address] Payer ID:Not on file Group ID:Not on file Type:Self Pay Address: [place], [place] * Guarantor: CHANCE JULIAN Account Type Relation to Patient Date of Phone Billing Address Personal/Family [address] [place] [address] SELF PAY NO INSURANCE Member Subscriber Plan / Payer (Ef fective for All Dates) Name:Chance uJlian Member ID:Not on file Relation to Subscriber:Not on file Name:CHANCE JULIAN Subscriber ID:Not on file Address: [place] [address] Payer ID:Not on file Group ID:Not on file Type:Self Pay Address: [place], [place] Care Teams Investigator Operator Relationship Specialty Start Date End Date José Schuler MD [address] [place] [address] PCP - General Internal Medicine 06/09/24
--- OUTSIDE RECORDS SUMMARY | 2024-10-09 09:36 | XMS_ITS | Referral Summary ---
Author Organization [facility] Address [facility] [place] [address] Care Team Providers Care Sound Designer Name Role Phone José Schuler MD Unavailable [phone] Shukri Goodman MD Primary Care Provider + [...] (01/03/2019): Added automatically from request for surgery [id number] Shortness of breath 11/10/2018 Sinus bradycardia 10/15/2017 [...] on file Legal Sex Female 7:00 AM SPRINKLING SYSTEM IRRIGATOR Gender Identity Female 03/12/2022 12:16 PM CDT Sexual Orientation Not on file Last Filed Vital Signs Vital Sign Reading Time Taken Comments Blood Pressure 171/91 06/03/2022 10:12 AM SPRINKLING SYSTEM IRRIGATOR Pulse 58 06/03/2022 10:12 AM SPRINKLING SYSTEM IRRIGATOR Temperature 36.2 C (97.1 F) 06/03/2022 9:13 AM SPRINKLING SYSTEM IRRIGATOR Respiratory Rate 12 06/03/2022 10:12 AM SPRINKLING SYSTEM IRRIGATOR Oxygen Saturation 100% 06/03/2022 10:12 AM SPRINKLING SYSTEM IRRIGATOR Inhaled Oxygen Concentration - - Weight 79.6 kg (175 lb 7.8 oz) 05/08/2022 12:56 PM SPRINKLING SYSTEM IRRIGATOR Height 157.5 cm (5' 2 ) 05/08/2022 12:56 PM SPRINKLING SYSTEM IRRIGATOR Body Mass Index 32.1 05/08/2022 12:56 PM SPRINKLING SYSTEM IRRIGATOR Plan of Treatment Not on file Goals Goal Patient Goal Type Associated Problems Recent Progress Patient-Stated? Author CCM Chronic Pain Care Plan Chronic Care Management No change(06/03 9:15 AM SPRINKLING SYSTEM IRRIGATOR) No Jennifer Collins, RN Note: Problem: Chronic Pain Goals: 1. Minimize further functional decline 2. Maximize quality of life 3. Control pain Strategies: - Activity/exercise program recommendation - Conservative stepwise pain medicine strategy with multi-disciplinary approach - Recommend healthy lifestyle strategies and compensatory methods as needed Medical Devices Implanted Type Area Clinical Quality Rn Device Identifier Shelf Expiration Date Model / Serial / Lot Titanium Plate N/A: Occipital Lobe Abyrx Os-201 Hemasorb Os-Spa Spatula Wax 2gm Bone Sterile - [id number] Implanted:Qty: 1 on 04/13/2019 by Royer Souza MD at [facility] N/A: Spine Cervical Abyrx 11/04/2021 OS-201 / / Musculoskeletal Transplant [id number] 4-30mm Allograft Frozen [id number] Wedge Graft Bone - [id number] - [id number] Implanted:Qty: 1 on 04/13/2019 by Royer Souza MD at [facility] N/A: Spine Cervical Musculoskeletal Transplant 05/24/2023 [id number] / [id number] / Deo Spine [id number] Aviator 4mm 14mm Variable Angle Self Tap Spine Cervical Anterior - [id number] Implanted:Qty: 5 on 04/13/2019 by Royer Souza MD at [facility] N/A: Spine Cervical Pheba Spine [id number] / / Pheba Spine [id number] Aviator 4.35mm 14mm Variable Angle Self Tap Spine Cervical - [id number] Implanted:Qty: 1 on 04/13/2019 by Royer Souza MD at [facility] N/A: Spine Cervical Pheba Spine [id number] / / Deo Spine [id number] Aviator 32x17.4x2.5mm Level 2 Automatic Lock System Spring Load - [id number] Implanted:Qty: 1 on 04/13/2019 by Royer Souza MD at [facility] N/A: Spine Cervical Pheba Spine [id number] / / [place] [address] [facility] [place]REF[place] PREF[place] Advance Directives For more information, please contact: [phone] * Full Code (Latest Code Status on File) Date Activated Date Inactivated Comments 04/13/2019 4:46 PM 04/15/2019 4:18 PM Care Teams Sound Designer Relationship Specialty Start Date End Date Shukri Goodman MD [address] [place] [address] PCP - General Internal Medicine 03/06/22 José Schuler MD 12/08/18
--- OUTSIDE RECORDS SUMMARY | 2024-10-09 09:36 | XMS_ITS | Encounter Summary ---
Author Organization [facility] Address [address] [place] [address] Care Team Providers Care Security System Engineer Name Role Phone José Schuler MD Unavailable [phone] Shukri Goodman MD Primary Care Provider + Reason for Visit * Reason Onset Date Comments Pre-Surgical Call 05/06/2022 Encounter Details Date Type Department Care Team (Late st Contact Info) Description 05/06/2022 Telephone [facility] [address] [place] [address] Ariana Sultana MD [address] [facility] [address] [place] [address] Pre-Surgical Call Social History Tobacco [...] on file Legal Sex Female 7:00 AM BONDERITE OPERATOR Gender Identity Female 03/12/2022 12:16 PM CDT Sexual Orientation Not on file documented as of this encounter Plan of Treatment Not on file documented as of this encounter Goals Goal Patient Goal Type Associated Problems Recent Progress Patient-Stated? Author CCM Chronic Pain Care Plan Chronic Care Management No change(06/03 9:15 AM BONDERITE OPERATOR) No Jennifer Collins, RN Note: Problem: Chronic Pain Goals: 1. Minimize further functional decline 2. Maximize quality of life 3. Control pain Strategies: - Activity/exercise program recommendation - Conservative stepwise pain medicine strategy with multi-disciplinary approach - Recommend healthy lifestyle strategies and compensatory methods as needed documented as of this encounter Visit Diagnoses Not on filedocumented in this encounter Care Teams Security System Engineer Relationship Specialty Start Date End Date Shukri Goodman MD [address] [place] [address] PCP - General Internal Medicine 03/06/22 José Schuler MD 12/08/18 documented as of this encounter
--- OUTSIDE RECORDS SUMMARY | 2024-10-09 09:36 | XMS_ITS | Clinical Summary ---
Author Organization [facility] Address [address] [place] [address] Care Team Providers Care Shelving Supervisor Name Role Phone Unavailable Primary Care Provider [...]
--- OUTSIDE RECORDS SUMMARY | 2024-10-09 09:36 | XMS_ITS | Clinical Summary ---
Author Organization [facility] Address [address] [place] [address] Phone Care Team Providers Care Senior Project Coordinator Name Role Phone Sunshine Vitale APRN, TANESHA Primary Care Provid er Sonny Singh MD Unavailable [phone] Allergies No known active allergies Medications linaCLOtide [...] Comments Blood Pressure 118/70 05/26/2023 11:12 AM MARKET DEVELOPER Pulse 55 05/26/2023 11:12 AM MARKET DEVELOPER Temperature 36.2 C (97.2 F) 05/26/2023 11:06 AM MARKET DEVELOPER Respiratory Rate 20 05/26/2023 11:06 AM MARKET DEVELOPER Oxygen Saturation 97% 05/26/2023 11:06 AM MARKET DEVELOPER Inhaled Oxygen Concentration - - Weight 82.6 kg (182 lb) 05/26/2023 11:06 AM MARKET DEVELOPER Height 157.5 cm (5' 2 ) 05/26/2023 11:06 AM MARKET DEVELOPER Body Mass Index 33.29 05/26/2023 11:06 AM MARKET DEVELOPER Plan of Treatment Health Maintenance Due Date [...] this topic Insurance AETNA [place]I Care Teams Senior Project Coordinator Relationship Specialty Start Date End Date Sunshine Vitale APRN, DIRECTOR ON AIR PCP - General Internal Medicine 01/28/23 Sonny Singh MD [address] [place] [address] Consulting Physician Neurology 05/26/23
--- OUTSIDE RECORDS SUMMARY | 2024-10-09 09:36 | XMS_ITS | CONTINUITY OF CARE DOCUMENT ---
Author Name patricia gomez Address Unknown Organization [facility] Address [address] [place] [address] Phone [phone] Care Team Providers Care Hris Manager Name Role Phone Henri CHILDS, Kunal Unavailable [phone] RAINE CHILDS, NEELA Sow Unavailable RAINE CHILDS, NEELA Sow Unavailable PROBLEMS Condition Status Date Provider Notes CHEST [...] In-person encounter Office Visit Kunal Álvarez MD [facility] Shortness of breath - In-person encounter Office Visit Kunal Álvarez MD [facility] CHEST PAIN - In-person encounter Office Visit Pilar Nation MD [facility] Sinus bradycardia - In-person encounter Office Visit Pilar Nation MD [facility] DizzinessPalpitations - In-person encounter Office Visit Pilar Nation MD [facility] - In-person encounter Office Visit Pilar Nation MD [facility] CHEST PAIN - In-person encounter Office Visit Pilar Nation MD [facility] CHEST PAINCoagulation defect Von Willibrand factor deficiency - In-person encounter Office Visit Pilar Nation MD [facility] GERD - In-person encounter Office Visit Pilar Nation MD [facility] - In-person encounter Office Visit Pilar Nation MD [facility] CHEST PAINABNORMAL ELECTROCARDIOGRAM LBBB 02/13HYPERTENSION, ESSENTIAL [...] caruso Aviles oxygen saturation, oximetry 98 % [facility] rate E&M 16 /min Kolby Aviles pulse rate 60 /min [facility] E&M 184 [lb_av] [place] Aviles height E&M 62 [in_i] Kolby Aviles blood pressure, diastolic 70 mm[Hg] Ca jyotsna Long blood pressure, systolic 120 mm[Hg] Ludwig vegas Mercedes Body Mass Index (Ratio) 31.27 kg/m2 Andrae Nation MD blood pressure, diastolic 88 mm[Hg] Ki billy [place] blood pressure, systolic 138 mm[Hg] Chirag caruso [place] oxygen saturation, oximetry 99 % [facility] respiratory rate E&M 16 /min [facility] pulse rate 62 /min [facility] weight E&M 171 [lb_av] [facility] blood pressure, resting No Kill n [place] height E&M 62 [in_i] [facility] blood pressure, diastolic 70 mm[Hg] Lisa Mercado [...] Mass Index (Ratio) 32.74 kg/m2 Aneyonatan zuniga [facility] blood pressure, diastolic 80 mm[Hg] An rosasris [facility] blood pressure, systolic 134 mm[Hg] Ane atris [facility] pulse rate 58 /min Aneatris [facility] oxygen saturation, oximetry 98 % Aneatris [facility] respiratory rate E&M 17 /min Aneatri s [facility] weight E&M 179 [lb_av] Aneatris [facility] Body Mass Index (Ratio) 33.10 kg/m2 Nicholas zuniga [facility] blood pressure, diastolic 80 mm[Hg] An levy [facility] blood pressure, systolic 139 mm[Hg] Ane haja [facility] pulse rate 64 /min Aneatris [facility] oxygen saturation, oximetry 98 % Marenatrloki [facility] respiratory rate E&M 17 /min Aneatri s [facility] weight E&M 181 [lb_av] Aneatris [facility] height E&M 62 [in_i] Kj [facility] blood pressure, diastolic 73 mm[Hg] Juan Morillo [...] - 1.2 urea nitrogen, blood 19.0 mg/dL [facility] 6.0 - 20.0 blood glucose, random 82.0 mg/dL [facility] 74.0 - 99.0 red blood cell distribution width, size density 43.1 fL [facility] - immature granulocytes, percentage of total cells, blood 0.1 % [facility] - nucleated red blood cells as percent of blood leukocytes 0.0 % [facility] - red blood cell (erythrocyte) count, per high power field 0.0 10*3/UL [facility] - eosinophils as percent of blood leukocytes 2.6 % [facility] - neutrophils as percent of blood leukocytes 71.7 % [facility] - Absolute Neutrophils 6.6 CELLS/UL [facility] 1.5 - 7.8 basophils as percent of [...] cell distribution width, size density 43.1 fL [facility] - immature granulocytes, percentage of total cells, blood 0.3 % [facility] - nucleated red blood cells as percent of blood leukocytes 0.0 % [facility] - red blood cell (erythrocyte) count, per [...] as percent of blood leukocytes 21.3 % [facility] Absolute Lymphocytes 1.3 CELLS/UL [facility] 0.9 - 3.9 mean platelet volume 8.4 (?) [facility] - platelet count 435.0 THOUSAND/ UL [facility] [...] Álvarez MD smoking status Never smoker [facility] social history E&M Marital Statu s: L [...] of grandchildren Pilar Nation MD Sherrell rahman [place] physical exercise, f requency, days per week [...] social basis only [facility] smoking status Non-smoker [facility] social history E&M L jose with family/friends E thnicity: Pilar Nation MD drug use none Pilar Nation MD social history reviewed E&M reviewed Pilar Nation MD physical exercise, f requency, days per week no [facility] caffeine use, averag e drinks per day yes [facility] alcohol use, average drinks per day none [facility] smoking status Non-smoker [facility] FUNCTIONAL STATUS Date Observation Value Provider periodic [...] Payer name Policy type / Coverage type [place] red democrat ID AETNA [facility] Other [id number] ADVANCE DIRECTIVES Name Date DISCUSSED - NO [...] Nation MD Cardiology:Orders: S TR - Routine (CPT-[id number]) M obile Cardiac Tele (CPT-[id number]) Pilar Nation MD Cardiology Pilar Nation MD [...] mild anterolateral hypokinesis. (02/15/2008) Orders: E KG ([id number]) C omplete Echo (CPT-[id number]) Pilar Nation MD surgical clearance: H er updated medication list for this problem includes: Metoprolol Tartrate Tabs (Metoprolol tartrate tabs) ..... 25mg one tab twice daily BP today: 120/73 Prior BP: 120/76 (02/21/2008) C ardiac Cath: No significant CAD. LV EF of 55% with mild anterolateral hypokinesis. (02/15/2008) Orders: C omplete Echo ([id number]) Pilar Nation MD surgical clearance: H er updated medication list for this problem includes: Metoprolol Tartrate Tabs (Metoprolol tartrate tabs) ..... 25mg one tab twice daily BP today: 120/73 P rior BP: 120/76 (02/21/2008) Orders: C omplete Echo ([id number]) Pilar Nation MD cp: H er updated [...] Monitor Pilar Nation MD comple samson SNOMED-CT: 27781247 Physical Exam, Performed: Pulse Exam of Foot Pilar Nation MD completed Event Monitor Philippe Marrero completed EKG Pilar Nation MD completed SNOMED-CT: 384661072 776801 Current Medications Documented Pilar Nation MD completed SNOMED-CT: 06312219 Physical Exam, Performed: Pulse Exam of Foot Pilar Nation MD completed EKG Pilar Nation MD completed SNOMED-CT: 899958122 838342 Current Medications Documented Pilar Nation MD completed EKG Pilar Nation MD completed EKG Pilar Nation MD completed EKG Pilar Nation MD completed
--- OUTSIDE RECORDS SUMMARY | 2024-10-09 09:36 | XMS_ITS | Clinical Summary ---
Author Organization [facility] Address [facility] [place] [address] Care Team Providers Care Basic Sciences Professor Name Role Phone José Schuler MD Unavailable [phone] Shukri Goodman MD Primary Care Provider + [...] (01/03/2019): Added automatically from request for surgery [id number] Shortness of breath 11/10/2018 Sinus bradycardia 10/15/2017 [...] reflux disease) Seasonal allergies Neck pain Arthritis OMAHA (hard of hearing) Chest pain Heartburn Headache [...] on file Legal Sex Female 7:00 AM RADAR ENGINEERING TEACHER Gender Identity Female 03/12/2022 12:16 PM CDT Sexual Orientation Not on file Obstetrics History Last Filed Vital Signs Vital Sign Reading Time Taken Comments Blood Pressure 171/91 06/03/2022 10:12 AM RADAR ENGINEERING TEACHER Pulse 58 06/03/2022 10:12 AM RADAR ENGINEERING TEACHER Temperature 36.2 C (97.1 F) 06/03/2022 9:13 AM RADAR ENGINEERING TEACHER Respiratory Rate 12 06/03/2022 10:12 AM RADAR ENGINEERING TEACHER Oxygen Saturation 100% 06/03/2022 10:12 AM RADAR ENGINEERING TEACHER Inhaled Oxygen Concentration - - Weight 79.6 kg (175 lb 7.8 oz) 05/08/2022 12:56 PM RADAR ENGINEERING TEACHER Height 157.5 cm (5' 2 ) 05/08/2022 12:56 PM RADAR ENGINEERING TEACHER Body Mass Index 32.1 05/08/2022 12:56 PM RADAR ENGINEERING TEACHER Plan of Treatment Health Maintenance Due Date [...] Chronic Care Management No change(06/03 9:15 AM RADAR ENGINEERING TEACHER) Jennifer Doe RN Note: Problem: Chronic Pain Goals: 1. Minimize further functional decline 2. Maximize quality of life 3. Control pain Strategies: - Activity/exercise program recommendation - Conservative stepwise pain medicine strategy with multi-disciplinary approach - Recommend healthy lifestyle strategies and compensatory methods as needed Medical Devices Implanted Type Area Ict Quality Assurance Engineer Device Identifier Shelf Expiration Date Model / Serial / Lot Titanium Plate N/A: Occipital Lobe Abyrx Os-201 Hemasorb Os-Spa Spatula Wax 2gm Bone Sterile - [id number] Implanted:Qty: 1 on 04/13/2019 by Royer Souza MD at [facility] N/A: Spine Cervical Abyrx 11/04/2021 OS-201 / / Musculoskeletal Transplant [id number] 4-30mm Allograft Frozen [id number] Wedge Graft Bone - [id number] - [id number] Implanted:Qty: 1 on 04/13/2019 by Royer Souza MD at [facility] N/A: Spine Cervical Musculoskeletal Transplant 05/24/2023 [id number] / [id number] / Deo Spine [id number] Aviator 4mm 14mm Variable Angle Self Tap Spine Cervical Anterior - [id number] Implanted:Qty: 5 on 04/13/2019 by Royer Souza MD at [facility] N/A: Spine Cervical Deo Spine [id number] / / Sibley Spine [id number] Aviator 4.35mm 14mm Variable Angle Self Tap Spine Cervical - [id number] Implanted:Qty: 1 on 04/13/2019 by Royer Souza MD at [facility] N/A: Spine Cervical Sibley Spine [id number] / / Sibley Spine [id number] Aviator 32x17.4x2.5mm Level 2 Automatic Lock System Spring [facility] - [id number] Implanted:Qty: 1 on 04/13/2019 by Royer Souza MD at [facility] N/A: Spine Cervical Deo Spine [id number] / / Insurance [place]ET[place] PREFERRED [facility] [place]ET[place] PREFERRED BENJAMINJuvencioSESAR NORMA PREFERRED Advance Directives For more information, please contact: [phone] * Full Code (Latest Code Status on File) Date Activated Date Inactivated Comments 04/13/2019 4:46 PM 04/15/2019 4:18 PM Care Teams Basic Sciences Professor Relationship Specialty Start Date End Date Shukri Goodman MD [address] [place] [address] PCP - General Internal Medicine 03/06/22 José Schuler MD 12/08/18
[2024-10-09 13:09] VITALS: BP 146/80; PULSE 64; RESP 16; TEMP 36.6; O2SAT 100
== END 2024-10-09 13:09 | disposition home or self-care (01) ==
PROVIDERS: Emergency Provider Emergency Medicine; PCP Internal Medicine
DX: M54.6 Pain in thoracic spine (principal); M54.50 Low back pain, unspecified; I48.91 Unspecified atrial fibrillation
CPT/HCPCS: 72072; 72100; 72125; 99284; A9270

== ENCOUNTER 2025-05-07 14:14 | Emergency (ER) | payer OTHER, SELFPAY ==
--- OUTSIDE RECORDS SUMMARY | 2025-05-07 14:18 | XMS_ITS | Clinical Summary ---
Author Organization [facility] Address [address] [place] [address] Care Team Providers Care Retention Manager Name Role Phone Unavailable Primary Care Provider [...] 9:57 AM CDT Height 157.5 cm (5' 2) 11/07/2023 9:57 AM CDT Body Mass Index [...] 2) 06/08/2020 04/13/2020 COVID-19 Vaccine (3 - 2024-2 6 season) 2025 08/26/2020, 08/05/2020 Influenza Adult (#1) 2025 DTaP, Tdap and Td Vaccines ( 2 - Td or Tdap) 10/18/2030 10/18/2020 Hepatitis A Vaccines Aged Out No long er eligible based on patient's age to complete this topic Meningococcal B Vaccine Aged Out No l onger eligible based on patient's age to complete this topic Meningococcal Vaccine Aged Out No al osmel eligible based on patient's age to complete this topic RSV Immunizations Under 20 Months Aged Out No longer eligible b ased on patient's age to complete this topic Insurance AET
--- OUTSIDE RECORDS SUMMARY | 2025-05-07 14:18 | XMS_ITS | Clinical Summary ---
Author Organization [facility] Address [address] [facility] [place] [address] Care Team Providers Care Chest Painting Leader Name Role Phone José Schuler MD Primary Care Provider [phone] Source Comments [facility],non-owned Affiliates and Associated Physician Practices is amultiple site organization consisting of ambulatory clinics and hospital sitesin [place], [place], [place] and [place]. This disclosure is being madepursuant to the Care Everywhere program and may not contain all information available regarding this patient. Last updated 18.[facility] Allergies No known active allergies Medications * [...] Comments Blood Pressure 120/77 06/30/2024 10:43 AM TALENT ACQUISITION LEAD Pulse - - Temperature - - Respiratory Rate - - Oxygen Saturation - - Inhaled Oxygen Concentration - - Weight 83.9 kg (185 lb) 06/30/2024 10:43 AM TALENT ACQUISITION LEAD Height 157.5 cm (5' 2) 06/30/2024 10:43 AM TALENT ACQUISITION LEAD Body Mass Index 33.84 06/30/2024 10:43 AM TALENT ACQUISITION LEAD Plan of Treatment Health Maintenance Due Date Last Done Comments COLOGUARD (AGES 45-75) - COL ON CA SCREENING 1968 COLON MONITORING 1968 COLONOSCOPY - COLON CA SCREENING 1968 CT COLONOGRAPHY - COLON CA SCREENING 1968 Colorectal Cancer Screening 1968 FIT - COLON CA SCREENING 1968 FLEX SIG - COLON CA SCREENING 1968 MAMMOGRAM 1968 HIV SCREENING 02/22/1983 HEPATITIS C SCREENING 02/18/1986 DTAP/TDAP/TD VACCINES (1 - Tdap) 02/22/1987 HEPATITIS B VACCINE (1 of 3 - 19+ 3-dose series) 02/22/1987 Cervical Cancer Screening 02/22/1989 PAP SMEAR 02/22/1989 PAP with HPV 02/22/1998 PNEUMOCOCCAL VACCINE 50+ (1 of 1 - PCV) 02/22/2018 ZOSTER VACCINE (1 of 2) 02/22/2018 DEPRESSION SCREENING 06/08/2024 SCREENING FOR DIABETES 06/09/2024 COVID-19 VACCINE (3 - 2024-2 6 season) 2025 08/26/2020, 08/05/2020 INFLUENZA VACCINE (#1) 2025 HIB VACCINE Aged Out No longer [...] Name:CHANCE JULIAN Subscriber ID:Not on file Address: [facility] [place] [address] Payer ID:Not on file Group ID:Not on file Type:Self Pay Address: [place], [place] [employer] SELF PAY NO INSURANCE Member Subscriber Plan / Payer (Ef fective for All Dates) Name:Chance Julian Member ID:Not on file Relation to Subscriber:Not on file Name:CHANCE JULIAN Subscriber ID:Not on file Address: [place] [address] Payer ID:Not on file Group ID:Not on file Type:Self Pay Address: [place], [place] * Guarantor: CHANCE JULIAN Account Type Relation to Patient Date of Phone Billing Address Personal/Family [address] [place] [address] SELF PAY NO INSURANCE Member Subscriber Plan / Payer (Ef fective for All Dates) Name:Chance Julian Member ID:Not on file Relation to Subscriber:Not on file Name:CHANCE JULIAN Subscriber ID:Not on file Address: [place] [address] Payer ID:Not on file Group ID:Not on file Type:Self Pay Address: [place], [place] Care Teams Chest Painting Leader Relationship Specialty Start Date End Date José Schuler MD [address] [place] [id number] PCP - General Internal Medicine 06/09/24
--- OUTSIDE RECORDS SUMMARY | 2025-05-07 14:18 | XMS_ITS | Encounter Summary ---
Author Organization [facility] Address [address] [place] [address] Care Team Providers Care Olive Grader Name Role Phone José Schuler MD Unavailable [phone] Shukri Goodman MD Primary Care Provider + Reason for Visit * Reason Onset Date Comments Pre-Surgical Call 05/06/2022 Encounter Details Date Type Department Care Team (Late st Contact Info) Description 05/06/2022 Telephone [facility] [address] [facility] [address] [place] [address] Ariana Sultana MD [address] [place] [address] Pre-Surgical Call Social History Tobacco [...] on file Legal Sex Female 7:00 AM PROCESSOR SOLID PROPELLANT Gender Identity Female 03/12/2022 12:16 PM CDT Sexual Orientation Not on file documented as of this encounter Functional Status documented as of this encounter Plan of Treatment Not on file documented as of this encounter Goals Goal Patient Goal Type Associated Problems Recent Progress Patient-Stated? Author CCM Chronic Pain Care Plan Chronic Care Management No change(06/03 9:15 AM PROCESSOR SOLID PROPELLANT) No Jennifer Collins RN Note: Problem: Chronic Pain Goals: 1. Minimize further functional decline 2. Maximize quality of life 3. Control pain Strategies: - Activity/exercise program recommendation - Conservative stepwise pain medicine strategy with multi-disciplinary approach - Recommend healthy lifestyle strategies and compensatory methods as needed documented as of this encounter Visit Diagnoses Not on filedocumented in this encounter Care Teams Olive Grader Relationship Specialty Start Date End Date Shukri Goodman MD [address] [place] [address] PCP - General Internal Medicine 03/06/22 José Schuler MD 12/08/18 documented as of this encounter
--- OUTSIDE RECORDS SUMMARY | 2025-05-07 14:18 | XMS_ITS | Clinical Summary ---
Author Organization [facility] Address [address] [place] [address] Phone Care Team Providers Care Drug Inspector Name Role Phone Sunshine Vitale APRN, ORTHODONTIST VICE PRESIDENT Primary Care Provid er Sonny Singh MD Unavailable [phone] Allergies No known active allergies Medications linaCLOtide [...] Comments Blood Pressure 118/70 05/26/2023 11:12 AM BODY MAN Pulse 55 05/26/2023 11:12 AM BODY MAN Temperature 36.2 C (97.2 F) 05/26/2023 11:06 AM BODY MAN Respiratory Rate 20 05/26/2023 11:06 AM BODY MAN Oxygen Saturation 97% 05/26/2023 11:06 AM BODY MAN Inhaled Oxygen Concentration - - Weight 82.6 kg (182 lb) 05/26/2023 11:06 AM BODY MAN Height 157.5 cm (5' 2) 05/26/2023 11:06 AM BODY MAN Body Mass Index 33.29 05/26/2023 11:06 AM BODY MAN Plan of Treatment Health Maintenance Due Date Last Done Comments Hepatitis C Virus (HCV) Screening 1968 Mammogram 1968 Hepatitis B Immunization (1 of 3 - 19+ 3-dose series) 02/22/1987 Pap Smear 02/22/1989 Cervical Cancer Screening (CCS) 02/22/1998 HPV/Cotest 02/22/1998 Cologuard 02/22/2013 Colonoscopy 02/22/2013 Colorectal Cancer Screening 02/22/2013 Immunochemical Fecal Occult Blood 02/22/2013 Pneumococcal Immunization (5 0+ years) (1 of 1 - PCV) 02/22/2018 Zoster Immunization (2 of 2) 06/08/2020 04/13/2020 Influenza Immunization (#1) 2025 SARS-COV-2 Immunization (3 - season) 2025 08/26/2020, 08/05/2020 Respiratory Syncytial Virus (RSV) Immunization (Adult) (1 - 1-dose 75+ series) 02/22/2043 DTaP/Tdap/Td Immunization Discontinued 10/18/2020 TdaP Immunization Completed 10/18/2020 Human Papillomavirus (HPV) Immunization Aged Out No longer eligible based on patient's age to complete this topic Meningococcal Immunization (ACWY) Aged Out No longer eligible based on patient's age to complete this topic Rotavirus Immunization Aged Out No lo nger eligible based on patient's age to complete this topic Insurance [facility] Care Teams Drug Inspector Relationship Specialty Start Date End Date Sunshine Vitale, CLOD PULLER, ORTHODONTIST VICE PRESIDENT PCP - General Internal Medicine 01/28/23 Sonny Singh MD [address] [place] [id number] Consulting Physician Neurology 05/26/23
--- OUTSIDE RECORDS SUMMARY | 2025-05-07 14:18 | XMS_ITS | Clinical Summary ---
Author Organization [facility] Address [facility] [place] [address] Care Team Providers Care Fruit Or Nut Farm Worker Name Role Phone José Schuler MD Unavailable [phone] Shukri Goodman MD Primary Care Provider + [...] (01/03/2019): Added automatically from request for surgery [id number] Shortness of breath 11/10/2018 Sinus bradycardia 10/15/2017 [...] reflux disease) Seasonal allergies Neck pain Arthritis [place] (hard of hearing) Chest pain Heartburn Headache [...] on file Legal Sex Female 7:00 AM ARCADE TECHNICIAN Gender Identity Female 03/12/2022 12:16 PM CDT Sexual Orientation Not on file Last Filed Vital Signs Vital Sign Reading Time Taken Comments Blood Pressure 171/91 06/03/2022 10:12 AM ARCADE TECHNICIAN Pulse 58 06/03/2022 10:12 AM ARCADE TECHNICIAN Temperature 36.2 C (97.1 F) 06/03/2022 9:13 AM ARCADE TECHNICIAN Respiratory Rate 12 06/03/2022 10:12 AM ARCADE TECHNICIAN Oxygen Saturation 100% 06/03/2022 10:12 AM ARCADE TECHNICIAN Inhaled Oxygen Concentration - - Weight 79.6 kg (175 lb 7.8 oz) 05/08/2022 12:56 PM ARCADE TECHNICIAN Height 157.5 cm (5' 2) 05/08/2022 12:56 PM ARCADE TECHNICIAN Body Mass Index 32.1 05/08/2022 12:56 PM ARCADE TECHNICIAN Plan of Treatment Health Maintenance Due Date Last Done Comments Breast Cancer Screening-Mammogram 1968 Cervical Cancer Screening 1968 Colon Cancer Screening-Colonoscopy 1968 Depression Screening 1968 Hepatitis C Screening 1968 Hepatitis B Screening 02/22/1986 Regular Well Visit/Exam 18-64 02/22/1986 Zoster Vaccine (2 of 2) 06/08/2020 04/13/2020 Covid-19 Vaccine ( - 2024-2 6 season) 2025 08/26/2020, 08/05/2020 Influenza Vaccine (#1) 2025 DTaP/Tdap/Td Vaccine (2 - Td or Tdap) 10/18/2030 10/18/2020 Pneumococcal vaccine <65 Aged Out No longer eligible based on patient's age to complete this topic Goals Goal Patient Goal Type Associated Problems Recent Progress Patient-Stated? Author CCM Chronic Pain Care Plan Chronic Care Management No change(06/03 9:15 AM ARCADE TECHNICIAN) Jennifer Doe RN Note: Problem: Chronic Pain Goals: 1. Minimize further functional decline 2. Maximize quality of life 3. Control pain Strategies: - Activity/exercise program recommendation - Conservative stepwise pain medicine strategy with multi-disciplinary approach - Recommend healthy lifestyle strategies and compensatory methods as needed Medical Devices Implanted Type Area Dry Wall Installer Device Identifier Shelf Expiration Date Model / Serial / Lot Titanium Plate N/A: Occipital Lobe Abyrx Os-201 Hemasorb Os-Spa Sp[place]ula Wax 2gm Bone Sterile - [id number] Implanted:Qty: 1 on 04/13/2019 by Royer Souza MD at [facility] N/A: Spine Cervical Abyrx 11/04/2021 OS-201 / / Musculoskeletal Transplant [id number] 4-30mm Allograft Frozen [id number] Wedge Graft Bone - [id number] - [id number] Implanted:Qty: 1 on 04/13/2019 by Royer Souza MD at [facility] N/A: Spine Cervical Musculoskeletal Transplant 05/24/2023 [id number] / [id number] / Deo Spine [id number] Aviator 4mm 14mm Variable Angle Self Tap Spine Cervical Anterior - [id number] Implanted:Qty: 5 on 04/13/2019 by Royer Souza MD at [facility] N/A: Spine Cervical Eighty Eight Spine [id number] / / Eighty Eight Spine [id number] Aviator 4.35mm 14mm Variable Angle Self Tap Spine Cervical - [id number] Implanted:Qty: 1 on 04/13/2019 by Royer Souza MD at [facility] N/A: Spine Cervical Eighty Eight Spine [id number] / / Eighty Eight Spine [id number] Aviator 32x17.4x2.5mm Level 2 Automatic Lock System Spring [facility] - [id number] Implanted:Qty: 1 on 04/13/2019 by Royer Souza MD at [facility] N/A: Spine Cervical Deo Spine [id number] / / Insurance [place] PREFERRED AETNA [facility] HMO [employer] PREFERRED HMO [facility] Advance Directives For more information, please contact: [phone] * Full Code (Latest Code Status on File) Date Activated Date Inactivated Comments 04/13/2019 4:46 PM 04/15/2019 4:18 PM Care Teams Fruit Or Nut Farm Worker Relationship Specialty [place] [address] [place] [address] [place] [address] PCP - General Internal Medicine 03/06/22 José Schuler MD 12/08/18
[2025-05-07 14:22] VITALS: BP 138/82; PULSE 63; RESP 18; TEMP 36.2; O2SAT 100
--- NOTE | 2025-05-07 14:30 | ED.DENTAL ---
HPI - Dental/Oral General Chief complaint: Dental/Oral Stated complaint: Mouth Infection patient presents to the [facility] with dental infection roof/ left side that began about 1 week ago. Patient noted having a chip stuck in this area 2 years ago and this was able to move the chip but noted that she gets flare-up infection. attempted to call primary care physician this week but did not hear back from them. Currently does not have dental insurance so she did not call her dentist. Denies facial swelling, drainage from area, shortness breath, cough, cold symptoms, headache, or dizziness. Related Data Home Medications ?Medication ?Instructions ?Recorded ?Confirmed ?Last Taken ?Type gabapentin 300 mg capsule 300 mg PO BID 07/16/22 02/15/25 04/04/24 06:00 History omeprazole 40 mg capsule,delayed 40 mg PO DAILY 07/16/22 02/15/25 04/03/24 09:00 History release Allergies Allergy/AdvReac Type Severity Reaction Status Date / Time No Known Allergies Allergy Verified 05/07/25 14:23 Review of Systems Constitutional: Constitutional: Reports as per HPI, Denies chills, Denies fatigue, Denies fever(s) and Denies weakness Eyes: Eyes: Reports no additional eye complaints ENT: Reports as per HPI, Denies vertigo, Denies dizziness, Denies nasal congestion and Denies sore throat Comments: Left upper and roof of mouth pain Cardiovascular: Cardiovascular: Reports no additional cardiovascular complaints Respiratory: Respiratory: Reports no additional respiratory complaints Gastrointestinal: Gastrointestinal: Reports no additional gastrointestinal complaints Genitourinary: Genitourinary: Reports no additional female genitourinary complaints Musculoskeletal: Musculoskeletal: Reports no additional musculoskeletal complaints Integumentary/Breasts: Skin/Breast: Reports as per HPI, Denies erythema, Denies rash and Denies skin ulcer Neurologic: Reports as per HPI, Denies vertigo, Denies dizziness, Denies headache(s) and Denies weakness Psychiatric: Psychiatric: Reports no additional psychiatric complaints Endocrine: Endocrine: Reports no additional endocrine complaints Hematologic/Lymphatic: Hematologic/Lymphatic: Reports no additional hematologic/lymphatic complaints Allergic/Immunologic: Allergic/Immunologic: Reports no additional allergic/immunologic complaints PMFSH Past Medical History Medical History A-fib Abdominal pain Diarrhea Left bundle branch block History of hyperlipidemia Acid reflux Missed Surgical History Surgical History History of tubal ligation H/O spinal fusion History of craniotomy History of endometrial ablation History of cholecystectomy Previous section x 3 Family History Family History Father Family history of elevated blood lipids Diabetes mellitus Family history of diabetes mellitus in first degree relative Family history of hypercholesterolemia Family history of premature coronary heart disease Hypertension Sibling Family history of malignant neoplasm of thyroid Mother Diabetes mellitus Grandparent Diabetes mellitus Social History Social History Social History: Code status: Full code. Smoking status: Never smoker Second hand tobacco smoke exposure: No Alcohol intake: never Substance use: never Substance use type: does not use Lack of Transportation: No Lack of Food: Never True Current Housing: I Have Housing Concerned About Future Housing: No Difficulty Paying Gas/Electric Bills: No Difficulty Paying for Meds: No Currently Unemployed: No Education: Bachelor's Degree Difficulty w/ Childcare or Family Care: No Living arrangements: with family Occupation/Education: occupation Gender identity (if verbalized by the patient): Female Spiritual care concerns: No Exam Const: General: healthy appearing and no acute distress Nutritional Appearance: well nourished Orientation/consciousness: patient oriented x3 Limitations: no limitations HENMT: Head: normal to inspection Ears: external ears normal and TM's normal bilaterally Face/Nose/Sinus: Normal external nose present and Normal nares present Face and sinus: normal facial exam and sinuses nontender Mouth: Yes Normal oral and palatal mucosa present, Yes lip normal and Yes moist mucous membranes Teeth and gingiva: abnormal tooth and associated gingiva (roof of mouth and left upper molar erythema and edema noted. ) Throat: posterior oropharynx normal Neck: Neck: normal visual inspection and no lymphadenopathy Resp: Effort & Inspection: normal respiratory effort Auscultation: clear to auscultation bilaterally Cardio: Rate: regular rate Rhythm: regular rhythm Skin: General skin exam: normal color Rashes: no rashes Wounds: no wounds Neuro: General: patient oriented x3 Speech: normal speech Gait exam (Neuro): Normal gait present Psych: Mental Status: mental status grossly normal Affect: normal affect Attitude: cooperative Course Course Level of Care: Express Care Visit Vital Signs Vital signs: Vital Signs Temperature 97.2 F L 05/07/25 14:22 Pulse Rate 63 05/07/25 14:22 Respiratory Rate 18 05/07/25 14:22 Blood Pressure 138/82 05/07/25 14:22 Pulse Oximetry 100 05/07/25 14:22 Oxygen Delivery Room Air 05/07/25 14:22 Temperature 97.2 F L 05/07/25 14:22 Pulse Rate 63 05/07/25 14:22 Respiratory Rate 18 05/07/25 14:22 Blood Pressure 138/82 05/07/25 14:22 Pulse Oximetry 100 05/07/25 14:22 Oxygen Delivery Room Air 05/07/25 14:22 MDM - Dental/Oral MDM Narrative Medical decision making narrative: The patient was evaluated by myself in the [facility]. History is obtained from patient who is an independent historian and physical exam was performed. Available medical records were reviewed at this time. Exam findings show no acute concerns or changes; patient is non-toxic appearing and is in no distress. Patient is appropriate for outpatient treatment and follow-up. I have evaluated and discussed social determinants of health with the patient that could potentially impact subsequent diagnosis and treatment plans. Differential diagnosis and treatment plan were discussed with the patient. Patient agrees with discussion and after shared medical decision making agrees with plan of care. All questions were answered to the patient's satisfaction. Differential Diagnosis Differential diagnosis: Likely gingival abscess, dental caries, toothache, dental abscess, fracture of tooth and aphthous ulcer Medical Records Attestation: I reviewed the patient's medical records. Discharge Plan Discharge Clinical Impression: Dental abscess Patient Disposition: Home Condition: Stable Instructions: Antibiotic Form, Dental Abscess (ED), Toothache (ED) Additional Instructions: Take antibiotic until it's gone. Brushing teeth at least twice daily with gentle flossing. Avoid temperature extremes---when you eat. Salt gargle to rinse your mouth after every meal You may apply ice to the face to reduce pain/swelling. For pain, you may take: Tylenol 650-1000mg by mouth every 4-6 hours. Do not exceed 4000mg in 24 hours. Advil (Ibuprofen) 600 mg by mouth every 6 hours. Do not exceed 2400mg in 24 hours. Also, recommend regular dental check up one-two times a year to prevent tooth decay and other periodontal disease. Follow-up with the dentist as soon as possible--see the list provided Patient Language: Kazakh Prescriptions: New amoxicillin 500 mg capsule 500 mg PO TID Qty: 30 0RF No Action atorvastatin 40 mg tablet 40 mg PO DAILY Qty: 90 2RF omeprazole 40 mg capsule,delayed release(DR/EC) 40 mg PO DAILY gabapentin 300 mg capsule 300 mg PO BID Rx Instructions: Pt reports taking 300 mg in the morning and afternoon, and 600mg po HS acetaminophen 500 mg tablet 1,000 mg PO TID Qty: 60 0RF ibuprofen 800 mg tablet 800 mg PO TID Qty: 30 0RF sotalol 80 mg tablet See Rx Instructions .ROUTE .COMPLEX Qty: 180 2RF Dose Instruction: TAKE 1 TABLET BY MOUTH EVERY 12 HOURS Rx Instructions: TAKE 1 TABLET BY MOUTH EVERY 12 HOURS Follow-up/Referrals: Ganga,MD José [Primary Care Provider] Time of Disposition: 14:32
== END 2025-05-07 14:36 | disposition home or self-care (01) ==
PROVIDERS: Emergency Provider Nurse Practitioner Family; PCP Internal Medicine
DX: K04.7 Periapical abscess without sinus (principal); I48.91 Unspecified atrial fibrillation; E78.5 Hyperlipidemia, unspecified; K21.9 Gastro-esophageal reflux disease without esophagitis
CPT/HCPCS: 99213; G0463